=== PATIENT | female | born 1995 | race Caucasian/White ===

== ENCOUNTER 2016-10-26 20:38 | Emergency (ER) | payer OTHER ==
[~2016-10-26] VITALS: Ht 157.5 cm; Wt 111.4 kg
[2016-10-26 20:42] VITALS: Ht 157.5 cm; Wt 111.4 kg
[2016-10-26] MEDS ORDERED: ONDANSETRON INJ 2 MG/ML 2 ML VIAL IV STA (20:59)
[2016-10-26] MEDS ORDERED: KETOROLAC TROMETHAMINE 30 MG/ML VIAL IV STA (20:59)
[2016-10-26] MEDS ORDERED: SODIUM CHLORIDE 0.9% 1000ML 1,000 ML IV STA (20:59)
[2016-10-26] MEDS ORDERED: HYDROmorphone INJ 1 MG/ML SYR IV STA ×2 (20:59→23:23)
--- NOTE | 2016-10-26 21:10 | EMERGENCY ROOM VISIT NOTE ---
History Report prepared by Vincent: Karla Leroy Under the Supervision of: Dr. Connor Ernst M.D. First contact with patient: 20:53 Chief Complaint: FLANK PAIN Stated Complaint: BACK PAIN MOVING TO STOMACH, VOMITING History of Present Illness The patient is a 21 year old female who presents to the Emergency Room with complaints of worsening right sided flank pain since yesterday afternoon. She states that today her pain is radiating into her right groin and into her abdomen. The patient rates her pain as a 9/10 in severity. She has been taking ibuprofen for pain. She denies any personal history of kidney stones, but does report a family history of kidney stones. She denies chance of . Her LNMP was last week. Source of History: patient Onset: yesterday afternoon Position: other (right flank) Symptom Intensity: 9/10 Quality: other (radiating) Timing: worsening Modifying Factors (Relieving): ibuprofen Associated Symptoms: + abdominal pain, + back pain Review of Systems See HPI for pertinent positives & negatives. A total of 10 systems reviewed and were otherwise negative. Past Medical & Surgical Medical Problems: (1) Ovarian cyst Family History Diabetes mellitus FHx: cancer Kidney disease Kidney stones Social History Smoking Status: Never Smoker Smokeless Tobacco Use: No Alcohol Use: none Drug Use: none Marital Status: single Housing Status: lives with family Occupation Status: employed, student Current/Historical Medications Scheduled Fluticasone Propionate (Nasal) (Flonase Allergy Relief), 2 SPRAYS BINTA DAILY Scheduled PRN Oxycodone/Acetaminophen 5MG/325MG (Percocet 5MG/325MG), 1-2 TAB PO Q4H PRN for Pain Allergies Coded Allergies: No Known Allergies (Unverified , NONE, 08/03/12) Physical Exam Vital Signs Date Time Temp Pulse Resp B/P Pulse Ox O2 Delivery O2 Flow Rate FiO2 10/26/16 23:43 36.5 82 18 122/66 98 10/26/16 23:37 82 18 122/66 98 Room Air 10/26/16 22:56 84 18 127/66 98 Room Air 10/26/16 21:17 96 10/26/16 20:42 36.5 95 18 129/86 99 Room Air Physical Exam GENERAL: Patient is a healthy-appearing well-nourished 21 year old female. HEAD: Normocephalic atraumatic EYES: Ocular movements intact pupils equal and react to light OROPHARYNX mucous membranes are moist no exudates present no erythema or edema present NECK: Supple no nuchal rigidity CHEST: Good equal expansion LUNGS: Clear and equal to auscultation CARDIAC: Normal S1 and S2 ABDOMEN: Soft nontender no guarding BACK: No CVA tenderness EXTREMITIES: No pain upon palpation normal muscle strength in all groups no clubbing cyanosis or edema NEURO: Patient is following commands is answering questions appropriately. Alert and oriented x3 Cranial Nerves 2-12 grossly intact Medical Decision & Procedures ER Provider Diagnostic Interpretation: Radiology results as stated below per my review and radiologist interpretation: ULTRASOUND KIDNEYS AND BLADDER CLINICAL HISTORY: Right flank pain. COMPARISON STUDY: Abdominal CT dated 07/03/2015 and KUB dated 10/16/16. TECHNIQUE: Real-time, grayscale, and color flow sonography of the kidneys and bladder is performed. Images are reviewed in the transverse and longitudinal planes. FINDINGS: Kidneys: The kidneys are normal in size and echotexture. The right kidney measures 10.3 cm in length and the left kidney measures 10.4 cm in length. There is no hydronephrosis. No shadowing renal calculi are identified. There is no sonographic evidence of contour deforming renal mass lesion. No perinephric fluid is identified. Bladder: The bladder is largely decompressed and grossly normal in appearance. Ureteral jets were not. IMPRESSION: 1. The kidneys are normal in size and without hydronephrosis. 2. The bladder was decompressed and not well evaluated. Electronically signed by: Darrius Lucia M.D. 10/26/2016 10:48 PM Dictated Date/Time: 10/26/2016 10:46 PM KUB CLINICAL HISTORY: Right flank pain. FINDINGS: 2 AP supine abdominal radiographs are correlated with abdominal CT dated 07/03/2015. There is a nonobstructed abdominal bowel gas pattern. Mild colonic fecal retention is observed. No evidence of intraperitoneal free air is seen. There is no radiographic evidence of nephrolithiasis. The bony structures appear intact. IMPRESSION: Normal examination. Electronically signed by: Darrius Lucia M.D. 10/26/2016 10:24 PM Dictated Date/Time: 10/26/2016 10:23 PM Laboratory Results 10/26/16 21:00 Red Blood Count 5.30, Mean Corpuscular Volume 77.4, Mean Corpuscular Hemoglobin 25.7, Mean Corpuscular Hemoglobin Concent 33.2, Mean Platelet Volume 10.4, Neutrophils (%) (Auto) 74.5, Lymphocytes (%) (Auto) 17.5, Monocytes (%) (Auto) 5.3, Eosinophils (%) (Auto) 2.1, Basophils (%) (Auto) 0.3, Neutrophils # (Auto) 8.69, Lymphocytes # (Auto) 2.04, Monocytes # (Auto) 0.62, Eosinophils # (Auto) 0.24, Basophils # (Auto) 0.03 10/26/16 21:00 Test 10/26/16 20:50 10/26/16 21:00 Urine Color YELLOW Urine Appearance CLEAR (CLEAR) Urine pH 6.5 (4.5-7.5) Urine Specific [place] 1.025 (1.000-1.030) Urine Protein NEG (NEG) Urine Glucose (UA) NEG (NEG) Urine Ketones NEG (NEG) Urine Occult Blood NEG (NEG) Urine Nitrite NEG (NEG) Urine Bilirubin NEG (NEG) Urine Urobilinogen NEG (NEG) Urine Leukocyte Esterase NEG (NEG) White Blood Count 11.66 K/uL (4.8-10.8) Red Blood Count 5.30 M/uL (4.2-5.4) Hemoglobin 13.6 g/dL (12.0-16.0) Hematocrit 41.0 % (37-47) Mean Corpuscular Volume 77.4 fL (80-100) Mean Corpuscular Hemoglobin 25.7 pg (25-34) Mean Corpuscular Hemoglobin Concent 33.2 g/dl (32-36) Platelet Count 338 K/uL (130-400) Mean Platelet Volume 10.4 fL (7.4-10.4) Neutrophils (%) (Auto) 74.5 % Lymphocytes (%) (Auto) 17.5 % Monocytes (%) (Auto) 5.3 % Eosinophils (%) (Auto) 2.1 % Basophils (%) (Auto) 0.3 % Neutrophils # (Auto) 8.69 K/uL (1.4-6.5) Lymphocytes # (Auto) 2.04 K/uL (1.2-3.4) Monocytes # (Auto) 0.62 K/uL (0.11-0.59) Eosinophils # (Auto) 0.24 K/uL (0-0.5) Basophils # (Auto) 0.03 K/uL (0-0.2) RDW Standard Deviation 39.9 fL (36.4-46.3) RDW Coefficient of Variation 14.2 % (11.5-14.5) Immature Granulocyte % (Auto) 0.3 % Immature Granulocyte # (Auto) 0.04 K/uL (0.00-0.02) Anion Gap 8.0 mmol/L (3-11) Est Creatinine Clear Calc Drug Dose 145.6 ml/min Estimated GFR () 138.7 Estimated GFR (Non- 119.7 BUN/Creatinine Ratio 25.8 (10-20) Calcium Level 9.2 mg/dl (8.5-10.1) Total Bilirubin 0.3 mg/dl (0.2-1) Direct Bilirubin < 0.1 mg/dl (0-0.2) Aspartate Amino Transf (AST/SGOT) 13 U/L (15-37) Alanine Aminotransferase (ALT/SGPT) 23 U/L (12-78) Alkaline Phosphatase 95 U/L (45-117) Total Protein 7.4 gm/dl (6.4-8.2) Albumin 3.7 gm/dl (3.4-5.0) Lipase 98 U/L (73-393) Labs reviewed by ED physician. Medications Administered Medications (Trade) Dose Ordered Sig/Génesis Route Start Time Stop Time Status Last Admin Dose Admin Sodium Chloride (Nss 1000ml) 1,000 ml @ 999 mls/hr Q1H1M STAT IV 10/26/16 20:59 10/26/16 21:59 DC 10/26/16 20:59 999 MLS/HR Ketorolac Tromethamine (Toradol Inj) 30 mg NOW STAT IV 10/26/16 20:59 10/26/16 21:01 DC 10/26/16 21:08 30 MG Hydromorphone HCl (Dilaudid Inj) 1 mg NOW STAT IV 10/26/16 20:59 10/26/16 21:01 DC 10/26/16 21:08 1 MG Ondansetron HCl (Zofran Inj) 4 mg NOW STAT IV 10/26/16 20:59 10/26/16 21:02 DC 10/26/16 21:08 4 MG Hydromorphone HCl (Dilaudid Inj) 1 mg NOW STAT IV 10/26/16 23:23 10/26/16 23:25 DC 10/26/16 23:34 1 MG Metoclopramide HCl (Reglan Inj) 10 mg NOW STAT IV 10/26/16 23:23 10/26/16 23:25 DC 10/26/16 23:33 10 MG Magnesium Citrate (Citrate Of Magnesia Soln) 296 ml NOW STAT PO 10/26/16 23:25 10/26/16 23:26 DC 10/26/16 23:33 296 ML ED Course 2055: Past medical records reviewed. The patient was evaluated in room C12B. A complete history and physical examination was performed. 2058: Zofran 4 mg IV, Dilaudid 1 mg IV, Toradol 30 mg IV, NSS 1000 ml @ 999 mls/ hr IV 2322: Reglan 10 mg IV, Dilaudid 1 mg IV 5: Magnesium Citrate 296 ml PO 2331: I reassessed the patient at this time. She is feeling better and resting comfortably. I discussed the results and treatment plan with the patient. I answered all pertaining questions that she had. She expressed understanding and verbalized agreement. The patient will be discharged home. Medical Decision Differential diagnosis: Etiologies such as renal colic, appendicitis, diverticulitis, mesenteric ischemia, aortic pathology, infections, inflammatory bowel disease, PUD, biliary pathology, UTI, as well as others were entertained. This is a 21-year-old female who presents emergency department complaining of flank pain. The patient has a family history of kidney stone. For this reason she was sent for a renal ultrasound as well as a KUB. Serial abdominal examinations were performed of the patient's emergency department and at no time did the patient exhibit abdominal tenderness. I felt based on this finding as well as the patient's laboratory work and using shared medical decision-making that the patient would have very low yield with a CAT scan. Patient was in agreement with the treatment plan she received normal saline bolus,Dilaudid. Repeat examination revealed improvement patient's symptoms. The patient does appear to be constipated therefore we will try magnesium citrate cleanout. Patient was in agreement with this treatment plan. Impression Primary Impression: Flank pain Additional Impression: Constipation Scribe Attestation The scribe's documentation has been prepared under my direction and personally reviewed by me in its entirety. I confirm that the note above accurately reflects all work, treatment, procedures, and medical decision making performed by me. Departure Information Dispostion Home / Self-Care Prescriptions Oxycodone/Acetaminophen 5MG/325MG (PERCOCET 5MG/325MG) Tab 1-2 TAB PO Q4H Y for Pain, #14 TAB Prov: Connor Ernst MD 10/26/16 Referrals Elisa Dean M.D. Forms HOME CARE DOCUMENTATION FORM, IMPORTANT VISIT INFORMATION, School Instructions, Work Instructions Patient Instructions Constipation, ED Flank Pain Uncertain Cause, My [facility] Additional Instructions Take 1/2 bottle of Mag Citrate Repeat second half in six hours You have been examined and treated today on an emergency basis only. This is not a substitute for, or an effort to provide, complete comprehensive medical care. It is impossible to recognize and treat all injuries or illnesses in a single emergency department visit. It is therefore important that you follow up closely with your PCP. Call as soon as possible for an appointment. Thank you for your time and consideration. I look forward to speaking with you again soon. Please don't hesitate to call us if you have any questions. Problem Qualifiers Additional Impression: Constipation Constipation type: unspecified constipation type Qualified Codes: K59.00 - Constipation, unspecified
[2016-10-26] MEDS ORDERED: FLUT0.15 NAE (21:19)
[2016-10-26 22:03] LABS: BASO % 0.3 %; BASO ABS # 0.03 K/uL (0-0.2); COMPLETE YES; EOS % 2.1 %; IG% 0.3 %; LYMPH % 17.5 %; LYMPH ABS # 2.04 K/uL (1.2-3.4); MEAN CELL VOLUME 77.4 fL (80-100); MEAN CORPUSCULAR HEMOGLOBIN 25.7 pg (25-34); MEAN CORPUSCULAR HGB CONC 33.2 g/dl (32-36); MEAN PLATELET VOLUME 10.4 fL (7.4-10.4); MONO % 5.3 %; NEUT % 74.5 %; PLATELET COUNT 338 K/uL (130-400); WHITE BLOOD COUNT 11.66 K/uL (4.8-10.8)
[2016-10-26 22:13] LABS: BLOOD UREA NITROGEN 19 mg/dl (7-18); BUN/CREATININE RATIO 25.8 (10-20); CALCIUM 9.2 mg/dl (8.5-10.1); CARBON DIOXIDE 27 mmol/L (21-32); CHLORIDE 108 mmol/L (98-107); CREATININE 0.72 mg/dl (0.60-1.20); GLUCOSE 78 mg/dl (70-99); POTASSIUM 3.8 mmol/L (3.5-5.1); SODIUM 143 mmol/L (136-145)
[2016-10-26 22:17] LABS: ALKALINE PHOSPHATASE 95 U/L (45-117); ALT/SGPT 23 U/L (12-78); AST/SGOT 13 U/L (15-37)
--- NOTE | 2016-10-26 22:25 | DIAGNOSTIC IMAGING REPORT ---
KUB CLINICAL HISTORY: Right flank pain. FINDINGS: 2 AP supine abdominal radiographs are correlated with abdominal CT dated 07/03/2015. There is a nonobstructed abdominal bowel gas pattern. Mild colonic fecal retention is observed. No evidence of intraperitoneal free air is seen. There is no radiographic evidence of nephrolithiasis. The bony structures appear intact. IMPRESSION: Normal examination. Electronically signed by: Darrius Lucia M.D. 10/26/2016 10:24 PM Dictated Date/Time: 10/26/2016 10:23 PM
--- NOTE | 2016-10-26 22:49 | DIAGNOSTIC IMAGING REPORT ---
ULTRASOUND KIDNEYS AND BLADDER CLINICAL HISTORY: Right flank pain. COMPARISON STUDY: Abdominal CT dated 07/03/2015 and KUB dated 10/16/16. TECHNIQUE: Real-time, grayscale, and color flow sonography of the kidneys and bladder is performed. Images are reviewed in the transverse and longitudinal planes. FINDINGS: Kidneys: The kidneys are normal in size and echotexture. The right kidney measures 10.3 cm in length and the left kidney measures 10.4 cm in length. There is no hydronephrosis. No shadowing renal calculi are identified. There is no sonographic evidence of contour deforming renal mass lesion. No perinephric fluid is identified. Bladder: The bladder is largely decompressed and grossly normal in appearance. Ureteral jets were not. IMPRESSION: 1. The kidneys are normal in size and without hydronephrosis. 2. The bladder was decompressed and not well evaluated. Electronically signed by: Darrius Lucia M.D. 10/26/2016 10:48 PM Dictated Date/Time: 10/26/2016 10:46 PM
[2016-10-26 22:59] LABS: MANUAL MICROSCOPIC REQUIRED? NO; URINE APPEARANCE CLEAR (CLEAR); URINE BILIRUBIN NEG (NEG); URINE COLOR YELLOW; URINE NITRITE NEG (NEG); URINE PH 6.5 (4.5-7.5); URINE SPECIFIC GRAVITY 1.025 (1.000-1.030); UROBILINOGEN NEG (NEG)
[2016-10-26 23:01] LABS: REVIEW REQ? NO
[2016-10-26] MEDS ORDERED: METOCLOPRAMIDE HCL INJ 5 MG/ML 2 ML VIAL IV STA (23:23)
[2016-10-26] MEDS ORDERED: MAGNESIUM CITRATE 296 ML/BTL PO STA (23:25)
[2016-10-26] MEDS ORDERED: OXYC-57 PO (23:27)
[2016-10-26 23:43] VITALS: BP 122/66; PULSE 82; TEMP 36.5; O2SAT 98
== END 2016-10-26 23:43 | disposition home or self-care (01) ==
LOC: C.EDB 20:39 → C.EDC 23:43
DX: K59.00 Constipation, unspecified (principal)

== ENCOUNTER 2016-12-23 20:15 | Emergency (ER) | payer OTHER ==
[~2016-12-23] VITALS: Ht 157.5 cm; Wt 113.8 kg
[~2016-12-23 20:15] MED LIST: FLUT0.15 NAE; OXYC-57 PO
[2016-12-23 20:22] VITALS: TEMP 36.8; Ht 157.5 cm; Wt 113.8 kg
[2016-12-23] MEDS ORDERED: CLR10 PO (20:49)
[2016-12-23] MEDS ORDERED: HYDCR25 TOP (20:50)
--- NOTE | 2016-12-23 20:53 | DIAGNOSTIC IMAGING REPORT ---
RIGHT KNEE 3 VIEWS CLINICAL HISTORY: R knee pain Right pain COMPARISON: None. DISCUSSION: The bones and joint spaces appear intact. There is no evidence of fracture, dislocation or bony disease. There is no evidence for soft tissue swelling. IMPRESSION: Negative study. Electronically signed by: Fabian River M.D. 12/23/2016 8:51 PM Dictated Date/Time: 12/23/2016 8:51 PM
[2016-12-23] MEDS ORDERED: TRAMADOL HCL 50 MG TAB PO STA (20:55)
[2016-12-23] MEDS ORDERED: TRAMADOL HCL 50 MG HOME PACK PO ONE (21:00)
[2016-12-23] MEDS ORDERED: TRAM-10 PO (21:20)
[2016-12-23 21:56] VITALS: BP 136/77; PULSE 78; O2SAT 98
--- NOTE | 2016-12-25 00:03 | EMERGENCY ROOM VISIT NOTE ---
ED Visit Note First contact with patient: 20:26 Chief Complaint: Right knee pain. History of Present Illness: Ms. Wolff is a 21-year-old white female who is brought into the ED via wheelchair accompanied by her father complaining of right knee pain. Patient denies any previous significant injuries or surgeries to the right knee but does report she had multiple episodes of childhood knee pain. Most of these were evaluated by her central stores attendant and no cause of her knee pain was identified. 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 Currently she describes the pain as a throbbing and sharp sensation. She rates her discomfort 8/10. The pain is nonradiating. The pain worsens with greater then 10 of flexion, hyperextension, palpation throughout the medial, anterior and lateral aspects of the knee. She has not identified any alleviating factors related to the pain. She has not taken any medications for pain prior to arrival at the hospital. She denies any associated symptoms including hip pain, thigh pain, lower leg pain, ankle pain, leg weakness/numbness/tingling, recent direct falls/trauma. Review of Systems: As noted above in history of present illness. 5 body systems were reviewed and found to be negative as noted above. Past Medical History: Bronchitis, status post wisdom teeth extraction. Current Medications: Flonase, Claritin, topical hydrocortisone. Allergies to Medications: Patient denies. Social History: Patient is currently employed; she feels safe in her home environment; she denies tobacco and alcohol use. Physical Examination: Vital Signs: Date Time Temp Pulse Resp B/P Pulse Ox O2 Delivery O2 Flow Rate FiO2 12/23/16 21:56 78 18 136/77 98 Room Air 12/23/16 20:22 36.8 109 18 157/83 97 Room Air GENERAL: 21-year-old female in moderate distress due to pain, nontoxic-appearing , afebrile and hemodynamically stable. NEUROLOGICAL: Awake, alert and oriented to person, place and time. Answering questions appropriately and following commands. Good hand eye coordination. SKIN: Warm, dry and pink. No soft tissue trauma noted. RIGHT LOWER EXTREMITY: No gross bony deformities. No shortening or malrotation. No tenderness in the hip, thigh, distal portion of the lower leg, ankle or foot. Moderate to severe tenderness throughout the lateral and medial joint lines without bony deformity, bony crepitus, swelling or ecchymosis. Moderate to severe tenderness over the patella, the tibial tuberosity and the patellar tendon without bony deformity, bony crepitus. She was only able to flex her knee less than 10 because of pain. She was able to slightly hyperextend her leg but that also increased her pain. Because of her discomfort I was not able to evaluate the menisci, collateral and cruciate ligaments. She did have full range of motion and muscle strength in plantar flexion, dorsiflexion and inversion eversion of the ankle and flexion and extension of all toes. The skin was warm and pink in the foot and the capillary refill is brisk. She is able to distinguish light sensations through all dermatomes. ED Course: Patient is assessed as noted above. Patient was given 50 mg of tramadol and ice for pain. Right Knee X-Rays: Were read by myself and the radiologist showing no acute fractures, dislocations or joint effusions. Patient was placed in a knee immobilizer and on nonweightbearing crutches. Patient was educated about tonight's findings and instructed on her treatment plan; she verbalizes understanding and agreement with this plan. Clinical Impression: Right knee pain. Disposition: Patient discharged home in stable condition accompanied by her father; prior to departure she was reassessed and subjectively reported she was feeling better and rated her discomfort 2/10. Plan: Comfort measures were discussed with the patient including a sliding pain medication scale of ibuprofen, acetaminophen and Ultram, ice and elevation, knee immobilizer and nonweightbearing crutches. Patient was encouraged to follow-up with orthopedics if no better in 7-10 days. Patient was encouraged return the ED for worsening/uncontrolled pain, uncontrolled swelling, leg weakness/numbness/tingling or any new/concerning symptoms.
== END 2016-12-23 21:58 | disposition home or self-care (01) ==
LOC: C.EDB 20:15 → C.EDD 21:58
DX: M25.561 Pain in right knee (principal)

== ENCOUNTER → 2016-12-30 | Outpatient (CLI) | payer OTHER ==
[~2016-12-30] MED LIST changes: +CLR10 PO; +HYDCR25 TOP; -OXYC-57 PO; +TRAM-10 PO
--- NOTE | 2016-12-30 16:14 | DIAGNOSTIC IMAGING REPORT ---
MRI OF THE RIGHT KNEE NO CONTRAST CLINICAL HISTORY: Right knee pain status post trauma. Patellar tendon rupture. COMPARISON STUDY: Conventional radiographic study dated 12/23/2016 FINDINGS: Imaging was performed in the coronal, sagittal, and axial planes. The patellar retinacular structures appear intact There are no areas of marrow edema to indicate occult fracture or bone bruise. The quadriceps and patellar tendons appear intact. The anterior and posterior cruciate ligaments appear intact. No meniscal tears are visualized. The medial and lateral collateral ligaments appear intact. IMPRESSION: No evidence of internal arrangement. Electronically signed by: Felix Callaway M.D. 12/30/2016 4:12 PM Dictated Date/Time: 12/30/2016 4:09 PM
== END | disposition home or self-care (01) ==
LOC: C.MRIBC 14:28
PROVIDERS: ATTEND Physician Assistant
DX: S86.811A Strain of other muscle(s) and tendon(s) at lower leg level, right leg, initial encounter (principal); X58.XXXA Exposure to other specified factors, initial encounter

== ENCOUNTER 2020-09-01 09:31 | Inpatient (IN) ==
--- NOTE | 2020-08-16 17:29 | PAT Medication Instructions ---
Medication Instructions Date of Service August 16, 2020 Home Medications fluticasone propionate [Flonase Allergy Relief] 2 spray INTRANASAL DAILY PRN loratadine 10 mg PO DAILY PRN amitriptyline 50 mg PO HS norgestimate-ethinyl estradiol [Sprintec (28)] 1 tab PO PM ASK your surgeon for instructions norgestimate-ethinyl estradiol [Sprintec (28)] 1 tab PO PM DO NOT take the morning of surgery loratadine 10 mg PO DAILY PRN Take morning of surgery With a small sip of water, OTHERWISE NOTHING TO EAT OR DRINK AFTER MIDNIGHT: fluticasone propionate [Flonase Allergy Relief] 2 spray INTRANASAL DAILY PRN (if needed) Take evening before surgery amitriptyline 50 mg PO HS Other Notes If you have any questions please call us at [phone] or [phone] or [phone] or [phone]
--- NOTE | 2020-08-17 14:07 | Anesthesiology Consultation ---
Date of Service August 17, 2020 Assessment & Plan (1) Encounter for pre-operative examination: Chart Review Chart Review: Acceptable Risk for Surgery (pending preop Covid testing and anesthesia evaluation. ) and Patient seen in Pre Admission Testing Surgeon's office informed of leukocytosis- will leave to surgeon's discretion if further evaluation needed and/or if repeat CBC needed. At [facility] appt on 08/18/20, pt was afebrile and had no complaints of illness. PE unremarkable. Will leave to anesthesia discretion if repeat CBC needed DOS. - Check test AM DOS Per [facility] appt on 08/17/20, patient denies any recent travel or any large group gatherings. No known Covid positive contacts or Covid related symptoms. Pt scheduled for preop Covid testing 08/25/20- will await results. Educated on importance of self quarantining, social distancing and wearing mask in public both for the patient and household contacts. Teaching & Discussion Pre-Anesthesia Teaching/Discussion Notes: Instructed NPO after midnight before surgery,except medications with 15 cc of water. Medication instructions provided according to the [facility] guidelines. History Surgery Operation Date: 09/01/20 11:20 Proposed Procedures p Exploratory Laparotomy and Abdominal Myomectomy - Rachel Vasquez Height/Weight Height: 5 ft 2 in Weight: 124.9 kg Allergies Allergy/AdvReac Type Severity Reaction Status Date / Time nickel Allergy Intermediate Rash Verified 08/10/20 11:15 Medications Home Medications Medication Instructions Recorded Confirmed Last Taken fluticasone propionate [Flonase 2 spray INTRANASAL DAILY PRN 05/31/19 08/10/20 Unknown Allergy Relief] loratadine 10 mg PO DAILY PRN 05/31/19 08/10/20 Unknown amitriptyline 50 mg PO HS 08/07/20 08/10/20 08/09/20 norgestimate-ethinyl estradiol 1 tab PO PM 08/07/20 08/10/20 08/09/20 [Sprintec (28)] metformin 500 mg BID 08/17/20 08/17/20 Unknown Past Medical History Medical History ADHD Will be starting Adderall in near future Anemia secondary to bleeding from fibroids Anxiety Depression PCOS (polycystic ovarian syndrome) Recently started on Metformin Scoliosis Mild Seasonal allergies Stress headaches Exercise / Class Metabolic Activity II 4-5 Yardwork/Stairs/Walk up hill (one flight of stairs - no chest pain or SOB) Past Family History Family History Mother History of anesthesia reaction difficulty breathing after anesthesia due to asthma> resolved during recovery. happened x1 Diabetes Past Surgical History Surgical History History of adenoidectomy History of myringotomy [place] teeth extracted Past Anesthesia History No Hx of Anesthesia Complications and No Family Hx of Anesthesia Complications (with exception to mother - mother has hx of asthma- did get SOB post op ) History of PONV No Hx of PONV and No Hx of Motion Sickness Social History Smoking Status: Never smoker Do You Dip or Chew Tobacco: No Smoking End Date: 2013 Hx Alcohol Use: No Hx Substance Use: No substance use type: does not use Review of Systems Patient denies chest pain, shortness of breath, dyspnea on exertion, reflux, cough, wheezing, palpitations. No hx of seizures, stroke, PA, apnea/snoring. No hx of blood clots or blood transfusions Physical Exam Vital Signs VITALS BP 122/89 P 82 TEMP 98.0 SP02 98% RESP 16 Constitutional no acute distress ENMT Mouth: no TMJ clicking Thyromental Distance: > or= 3.5 Finger Breadths Mallampati Class: II (smaller airway ) Denies loose or missing teeth Neck neck extension not limited Respiratory normal respiratory effort; no respiratory distress Auscultation: lungs clear to auscultation bilaterally; no wheezes Cardiovascular Rate/Rhythm: regular rate and regular rhythm Heart Sounds: no murmur Vessels: no carotid bruit Musculoskeletal Spine: no pain with cervical ROM Extremities: extremities normal to inspection Psychiatric Orientation: alert Testing Laboratory Results 08/17/20 14:20 08/17/20 14:20 Blood Type A Positive 08/17/20 14:20 Antibody Screen NEGATIVE 08/17/20 14:20 *Hx of mild chronic leukocytosis - usually in 11-12,000 range Electrocardiogram Date: 08/17/20 Findings: + NSR @ (78) Normal EKG.
[2020-08-17 15:04] LABS: Basophils # (auto) 0.02 K/uL (0-0.2); Basophils % (auto) 0.1 %; Eosinophils # (auto) 0.03 K/uL (0-0.5); Eosinophils % (auto) 0.2 %; Hematocrit (blood only) 38.2 % (37-47); Hemoglobin 11.6 g/dL (12.0-16.0); Immature Granulocytes # (auto) 0.04 K/uL (0.00-0.02); Immature Granulocytes % (auto) 0.3 %; Lymphocytes # (auto) 3.14 K/uL (1.2-3.4); Lymphocytes % (auto) 20.5 %; Mean Corpuscular Hemoglobin 21.5 pg (25-34); Mean Corpuscular Hgb Conc 30.4 g/dL (32-36); Mean Corpuscular Volume 70.9 fL (80-100); Mean Platelet Volume 10.2 fL (7.4-10.4); Monocytes # (auto) 0.99 K/uL (0.11-0.59); Monocytes % (auto) 6.5 %; Neutrophils # (auto) 11.12 K/uL (1.4-6.5); Neutrophils % (auto) 72.4 %; Platelet Count 457 K/uL (130-400); RDW Coefficient of Variation 15.4 % (11.5-14.5); RDW Standard Deviation 40.5 fL (36.4-46.3); Red Blood Count 5.39 M/uL (4.2-5.4); White Blood Count 15.34 K/uL (4.8-10.8)
[2020-08-17 15:30] LABS: BUN Creatinine Ratio 25.2 (10-20); Calcium 8.8 mg/dl (8.5-10.1); Creatinine Clr Calc Pharmacy 148.8 ml/min; Est GFR (African American) 132.7; Est GFR (Non-African American) 114.5; Potassium 3.8 mmol/L (3.5-5.1)
[2020-08-17 15:34] LABS: Hypochromasia Present
--- NOTE | 2020-08-17 16:00 | Electrocardiogram Report ---
Test Reason : Blood Pressure : / mmHG Vent. Rate : 078 BPM Atrial Rate : 078 BPM P-R Int : 128 ms QRS Dur : 082 ms QT Int : 374 ms P-R-T Axes : -25 062 016 degrees QTc Int : 426 ms Normal sinus rhythm Normal ECG When compared with ECG of 09-AUG-2016 20:09, No significant change was found Confirmed by Dominic Deleon ([id number]) on 08/17/2020 4:00:29 PM Referred By: Rachel Vasquez Confirmed By:Sean Deleon
[~2020-09-01 09:31] MED LIST changes: -CLR10 PO; -FLUT0.15 NAE; -HYDCR25 TOP; +LACTATED RINGER'S 1,000 ML IV SCH; +LR 15ML/HR IV SCH; -TRAM-10 PO
[2020-09-01] MEDS ORDERED: ONDANSETRON INJ 2 MG/ML 2 ML VIAL ONE ×2 (09:45→12:53)
[2020-09-01] MEDS ORDERED: NEOSTIGMINE METHYLSULFATE 5 MG/5 ML SYR ONE (09:45)
[2020-09-01] MEDS ORDERED: PROPOFOL IV EMULSION 10 MG/ML 20 ML VIAL IV ONE (09:45)
[2020-09-01] MEDS ORDERED: MIDAZOLAM HCL 1 MG/ML 2ML VIAL ONE (09:45)
[2020-09-01] MEDS ORDERED: DEXAMETHASONE SOD INJ 4 MG/ML VIAL ONE (09:45)
[2020-09-01] MEDS ORDERED: fentaNYL citrate 100 MCG/2 ML VIAL ONE (09:45)
[2020-09-01] MEDS ORDERED: GLYCOPYRROLATE 0.2 MG/ML VIAL ONE (09:45)
[2020-09-01] MEDS ORDERED: LIDOCAINE HCL 2% 2 ML VIAL/AMP(20MG/ML) INFIL ONE (09:45)
[2020-09-01 10:29] LABS: Pregnancy Test, Serum Negative (Negative)
--- NOTE | 2020-09-01 10:48 | History & Physical Bridge Note ---
Date of Service September 01, 2020 History & Physical Bridge Note I have examined the patient, reviewed the History & Physical and in the interval since the performance of the History & Physical I have noted the following changes of clinical significance: no changes noted
[2020-09-01] MEDS ORDERED: PROMETHAZINE HCL 12.5 MG in SODIUM CHLORIDE 0.9% 50 ML IV PRN (10:50)
[2020-09-01] MEDS ORDERED: ATROPINE SULFATE 0.1 MG/ML 10ML SYR IV PRN (10:50)
[2020-09-01] MEDS ORDERED: METOCLOPRAMIDE HCL INJ 5 MG/ML 2 ML VIAL IV PRN (10:50)
[2020-09-01] MEDS ORDERED: ONDANSETRON INJ 2 MG/ML 2 ML VIAL IV PRN ×2 (10:50→15:48)
[2020-09-01] MEDS ORDERED: ePHEDrine sulfate 50 MG/ML AMP IV PRN (10:50)
[2020-09-01] MEDS ORDERED: HYDROmorphone INJ 2 MG/ML SYR/VIAL IV PRN (10:50)
[2020-09-01] MEDS ORDERED: SODIUM CHLORIDE 0.9% PF 50 ML VIAL ONE ×2 (11:08→12:39)
[2020-09-01] MEDS ORDERED: VASOPRESSIN 20 UNIT/ML VIAL ONE (11:08)
[2020-09-01] MEDS ORDERED: LARYING-O-JET KIT (LTA) ONE (11:43)
[2020-09-01] MEDS ORDERED: ROCURONIUM BROMIDE 10 MG/ML 5 ML VIAL IV ONE (11:44)
[2020-09-01] MEDS ORDERED: HYDROmorphone INJ 2 MG/ML SYR/VIAL ONE (11:44)
[2020-09-01] MEDS ORDERED: BUPIVACAINE LIPOSOME 1.3% 266 MG/20 ML VIAL ONE (12:01)
[2020-09-01] MEDS ORDERED: TISSEEL FIBRIN SEALANT 10ML TOP ONE (12:30)
--- NOTE | 2020-09-01 13:10 | Post Operative Brief Note ---
Immediate Post Op Note v1 Date of Surgery September 01, 2020 Pre & Post Diagnosis Operation Date: 09/01/20 11:30 Pre-Op Diagnosis: Uterine Fibroids, Heavy Menstrual Bleeding I identified the patient and participated in the time-out.: Yes Procedure Operation Date: 09/01/20 11:30 Actual Procedures p Exploratory Laparotomy and Abdominal Myomectomy(Not Applicable) - Rachel Vasquez Surgeon Rachel Vasquez Body Coverer Emeka Bradford MD, Loan García PA-C Estimated Blood Loss 10 Findings Consistent with Post-Op Diagnosis Drains Brady Catheter
--- NOTE | 2020-09-01 13:13 | Operative Report ---
Post Operative Report Pre & Post Diagnosis Operation Date: 09/01/20 11:30 Pre-Op Diagnosis: Uterine Fibroids, Heavy Menstrual Bleeding I identified the patient and participated in the time-out.: Yes Procedure Operation Date: 09/01/20 11:30 Actual Procedures p Exploratory Laparotomy and Abdominal Myomectomy(Not Applicable) - Rachel Vasquez Surgeon Rachel Vasquez Tractor Driver Teamster Emeka Bradford MD, Loan García PA-C Estimated Blood Loss 10 Findings See Below 1. Normal size anteverted uterus 2. Approximate 4 cm left posterior fibroid 3. 1 cm left anterior uterine segment fibroid 4. Normal appearing bilateral fallopian tubes and ovaries Fluids See Anesthesia Report Specimens Uterine fibroids Drains Reece catheter: 65 ml Anesthesia Type General Complications none Indications 25 yo P0 with uterine fibroids desiring surgery via abdominal myomectomy. Description of Procedure The patient was taken to the operating room where general anesthesia was found to be adequate. The patient was prepped and draped in the usual sterile fashion in the dorsal supine position. A reece catheter was inserted without difficulty. A Pfannenstiel skin incision was made with the scalpel and carried through to the underlying layer of fascia using the Bovie. The fascia was incised in the midline and extended laterally using Berg scissors. Adrienne clamps were used to elevate the superior aspect of the fascial incision, which was elevated, and the underlying rectus muscles were dissected off bluntly and using Berg scissors. Attention was then turned to the inferior aspect of the fascial incision, which in similar fashion was grasped with Adrienne clamps, elevated, and the underlying rectus muscles were dissected off bluntly and using Berg scissors. The rectus muscles were dissected in the midline. The peritoneum was bluntly dissected, entered, and extended superiorly and inferiorly with good visualization of the bladder. The bowel as packed and O'Fritz O'Anglin retractor was inserted for better visualization. Two fibroids were visible/palpable. The remaining noted on MRI were not palpable therefore decision was made to remove the two fibroids visualized. A dilute solution was injected to each fibroid. The posterior fibroid was scored with a bovie down to the capsule. Lehay clamps were used to grasp the fibroid and with traction, the fibroid was removed from its uterine mucosa. The incision was then closed with V-loc barbed stitch in three layers. Hemostasis was noted. Attention was then turned to left lower uterine fibroid (superficial). It was then scored with bovie down to the capsule of the fibroid. The fibroid was remove with Lehay clamps. The incision was closed with 2-0 Vicryl in 2 layers. Hemostasis was achieved. The pelvis was then copiously irrigated and suctioned and hemostasis was again noted. Tisseal was then placed along the incision site. Hemostasis again noted. The abdominal sponges were removed. The O'Fritz O'Anglin retractor was also removed without difficulty. The fascia was closed with 0 PDS. Exparel was then injected into the subcutaneous and fascial layer. The subcutaneous layer was closed with 2-0 Vicryl in a running fashion and the skin was closed with 4-0 monocryl. A PIA dressing was then placed on the incision site. Sponge, lap, and instrument counts were correct x2. The patient was stable at the completion of the procedure and was subsequently transferred to the recovery room in stable condition. My Tractor Driver Teamster was necessary throughout the procedure for uterine manipulation, retraction, handling of the instruments to ensure adequate visualization, gentle tissue manipulation, and hemostasis. I attest to the content of the Intraoperative Record and any orders documented therein. Any exceptions are noted below.
[2020-09-01] MEDS: fentaNYL citrate 100 MCG/2 ML VIAL IV PRN ×4 (13:40→13:55)
--- NOTE | 2020-09-01 14:01 | Anesthesiology Progress Note ---
Date of Service September 01, 2020 Anesthesia Post Procedure Vital Signs Vital Signs: Temp Pulse Pulse Resp BP Pulse Ox 09/01/20 13:50 97 H 16 162/87 H 94 09/01/20 13:40 98 H 16 147/92 H 96 09/01/20 13:30 114 H 18 139/67 96 09/01/20 13:20 36.3 C L 117 H 16 144/84 H 96 09/01/20 10:05 37.2 C 96 H 18 163/105 H 98 Pain Intensity Lower Abdomen: Pain Intensity: 8 Transfer of Care Handoff Completed per policy Notes Mental Status: alert / awake / arousable and participated in evaluation Patient Amnestic to Procedure: Yes Nausea / Vomiting: adequately controlled Pain: adequately controlled Airway Patency, RR, SpO2: stable & adequate BP & HR: stable & adequate Hydration State: stable & adequate Anesthetic Complications: no major complications apparent
[2020-09-01] MEDS ORDERED: LACTATED RINGER'S 1,000 ML IV SCH (15:48)
[2020-09-01] MEDS ORDERED: oxyCODONE HCL IR 5 MG TAB (IMMEDIATE RELEASE) PO PRN (15:48)
[2020-09-01] MEDS: ACETAMINOPHEN 500 MG TAB PO SCH (16:04)
[2020-09-01] MEDS: KETOROLAC 30 MG/ML VIAL IV SCH (17:57)
[2020-09-01] MEDS: SIMETHICONE 80 MG CHEW PO SCH (17:57)
[2020-09-01] MEDS ORDERED: AMITRIPTYLINE HCL 50 MG TAB PO SCH (21:00)
[2020-09-01] MEDS: metFORMIN HCL 500 MG TAB PO SCH (21:03)
[2020-09-01] MEDS: DOCUSATE SODIUM 100 MG CAP PO SCH (21:04)
[2020-09-02] MEDS: SIMETHICONE 80 MG CHEW PO SCH ×3 (00:36→11:18)
[2020-09-02] MEDS: ACETAMINOPHEN 500 MG TAB PO SCH ×2 (00:36→09:09)
[2020-09-02] MEDS: KETOROLAC 30 MG/ML VIAL IV SCH ×2 (00:37→06:00)
[2020-09-02] MEDS: DOCUSATE SODIUM 100 MG CAP PO SCH (09:09)
[2020-09-02] MEDS: metFORMIN HCL 500 MG TAB PO SCH (09:09)
[2020-09-02] MEDS ORDERED: IBUPROFEN 600 MG TAB PO PRN (09:56)
--- NOTE | 2020-09-02 09:56 | Obstetrical Progress Note ---
Date of Service September 02, 2020 Assessment & Plan Admission and Anticipated Discharge Date Admission Date: September 01, 2020 Subjective Patient is seen and examined. She feels painful. More after ambulation. Had been on IV Toradol. Ambulating without dizziness Voiding without difficulty Tolerating regular diet with out N&V but no apetite Flatus none Bleeding is minimal No fever/ chills/ CP/ SOB/ N&V/ Leg pain Vital Signs Temp Pulse Pulse Resp BP BP Pulse Ox 09/02/20 09:04 37.3 C 121 H 110 H 18 112/76 101/72 95 09/02/20 08:00 37.3 C 121 H 18 101/72 09/02/20 04:40 36.6 C 110 H 17 112/76 95 09/02/20 00:30 36.7 C 109 H 17 110/75 95 09/01/20 19:30 36.6 C 119 H 16 124/86 96 09/01/20 18:00 36.6 C 116 H 16 139/85 92 09/01/20 17:00 36.6 C 125 H 16 144/86 H 96 09/01/20 16:00 36.4 C L 119 H 16 149/92 H 97 09/01/20 15:36 36.6 C 120 H 16 142/90 H 95 09/01/20 15:10 36.4 C L 118 H 15 122/85 98 09/01/20 15:00 36.4 C L 108 H 15 149/94 H 97 09/01/20 14:50 36.4 C L 117 H 14 141/95 H 97 09/01/20 14:40 36.4 C L 108 H 17 146/96 H 98 09/01/20 14:30 36.4 C L 112 H 17 154/90 H 98 09/01/20 14:20 36.4 C L 107 H 19 160/93 H 98 09/01/20 14:10 36.4 C L 105 H 24 147/91 H 98 09/01/20 14:00 36.4 C L 97 H 16 162/87 H 94 09/01/20 13:50 97 H 16 162/87 H 94 09/01/20 13:40 98 H 16 147/92 H 96 09/01/20 13:30 114 H 18 139/67 96 09/01/20 13:20 36.3 C L 117 H 16 144/84 H 96 09/01/20 10:05 37.2 C 96 H 18 163/105 H 98 Intake and Output 09/01/20 09/02/20 09/02/20 22:59 06:59 14:59 Intake Total 1100 / 2500 Output Total 425 / 500 Balance 675 / 2000 Intake: Oral 1100 / 1100 Output: Urine 100 / 100 Urine Amount (Catheter) 300 / 365 Brady/Indwelling 300 / 365 Gastric Drainage Orogastric Other: # Unmeasured Voids 1 Weight 124.426 kg Patient Weight 09/03/20 06:59 Weight 124.426 kg CBC pending PE: General: Alert, orientedx3, NAD CVS: S1S2 RRR Lungs; CTAB Abd: soft, NT, ND, BS+, PIA dressing, there is a keri of blood on the left corned about 3x3 cm Perineum intact, minimal bleeding ( on placebo week of BCP) Ext; NT, no edema AP: 25 yo s/p abdominal myomectomy, pod# 1 VSS Afebrile CBC pending Await Pain control and bowel functions Encourage ambulation, PO intake All questions were answered D/C home this afternoon Results & Data ([facility]) Vital Signs (Past 12 Hours) Vital Signs Temp Pulse Pulse Resp BP BP Pulse Ox 09/02/20 09:04 37.3 C 121 H 110 H 18 112/76 101/72 95 09/02/20 08:00 37.3 C 121 H 18 101/72 09/02/20 04:40 36.6 C 110 H 17 112/76 95 09/02/20 00:30 36.7 C 109 H 17 110/75 95
[2020-09-02 10:05] LABS: Basophils # (auto) 0.02 K/uL (0-0.2); Basophils % (auto) 0.2 %; Eosinophils # (auto) 0.02 K/uL (0-0.5); Eosinophils % (auto) 0.2 %; Hematocrit (blood only) 28.9 % (37-47); Hemoglobin 8.7 g/dL (12.0-16.0); Immature Granulocytes # (auto) 0.04 K/uL (0.00-0.02); Immature Granulocytes % (auto) 0.4 %; Lymphocytes # (auto) 1.81 K/uL (1.2-3.4); Lymphocytes % (auto) 15.9 %; Mean Corpuscular Volume 69.8 fL (80-100); Mean Platelet Volume 9.4 fL (7.4-10.4); Monocytes # (auto) 0.85 K/uL (0.11-0.59); Monocytes % (auto) 7.5 %; Neutrophils # (auto) 8.62 K/uL (1.4-6.5); Neutrophils % (auto) 75.8 %; Platelet Count 353 K/uL (130-400); RDW Coefficient of Variation 16.3 % (11.5-14.5); RDW Standard Deviation 41.3 fL (36.4-46.3); Red Blood Count 4.14 M/uL (4.2-5.4); White Blood Count 11.36 K/uL (4.8-10.8)
[2020-09-02 10:13] LABS: Mean Corpuscular Hgb Conc 30.1 g/dL (32-36)
--- NOTE | 2020-09-02 11:20 | Obstetrical Progress Note ---
Date of Service September 02, 2020 Assessment & Plan Admission and Anticipated Discharge Date Admission Date: September 01, 2020 Subjective Patient has been ambulating in hallway without problems CBC is back She has had AUB for months, on placebo week of BCP now, bleeding minimal Her HB had been 10-11 Will start iron d/c after lunch 09/02/20 Range/Units 09:52 WBC 11.36 H (4.8-10.8) K/uL RBC 4.14 L (4.2-5.4) M/uL Hgb 8.7 L (12.0-16.0) g/dL Hct 28.9 L (37-47) % MCV 69.8 L (80-100) fL MCH 21.0 L (25-34) pg MCHC 30.1 L (32-36) g/dL RDW Std Deviation 41.3 (36.4-46.3) fL RDW Coeff of Ashley 16.3 H (11.5-14.5) % Plt Count 353 (130-400) K/uL MPV 9.4 (7.4-10.4) fL Immature Gran % (Auto) 0.4 % Neut % (Auto) 75.8 % Lymph % (Auto) 15.9 % [place] % (Auto) 7.5 % Eos % (Auto) 0.2 % Baso % (Auto) 0.2 % Neut # (Auto) 8.62 H (1.4-6.5) K/uL Lymph # (Auto) 1.81 (1.2-3.4) K/uL [place] # (Auto) 0.85 H (0.11-0.59) K/uL Eos # (Auto) 0.02 (0-0.5) K/uL Baso # (Auto) 0.02 (0-0.2) K/uL Immature Gran # (Auto) 0.04 H (0.00-0.02) K/uL Results & Data ([facility]) Vital Signs (Past 12 Hours) Vital Signs Temp Pulse Pulse Resp BP BP Pulse Ox 09/02/20 09:04 37.3 C 121 H 110 H 18 112/76 101/72 95 09/02/20 08:00 37.3 C 121 H 18 101/72 09/02/20 04:40 36.6 C 110 H 17 112/76 95 09/02/20 00:30 36.7 C 109 H 17 110/75 95
[2020-09-02] MEDS ORDERED: FERROUS SULFATE 325 MG TAB PO SCH (11:30)
[2020-09-02 11:49] LABS: RBC Morphology Unremarkable
--- NOTE | 2020-09-07 08:06 | Discharge Summary ---
Date of Service September 07, 2020 Admission HPI Per Admitting Provider 25 year [id number] with LMP 08/15/2020 using OCPs for contraception presents with uterine fibroids and heavy menstrual bleeding. Longstanding h/o irregular menses, however, worse over the last year. Patient reports some form of bleeding every day ranging from light to heavy, On heavy days, Patient reports using both tampons and pads and changes every 2 hours. Patient has to wear brief underwear due to soiling of clothing. Patient also missing work due to heavy bleeding. Patient currently on OCPs with irregular bleeding. Patient has also used ortho evra and provera in the past. Endorses cramps and clots. TVUS and MRI suggestive of a multi-fibroid uterus. Patient not currently sexually active. Denies urinary or bowel symptoms. No h/o abnormal pap smears. Last pap smear: NILM 2018 Admission Exam (Per Admitting) Constitutional WD/WN, vitals as above Respiratory normal respiratory effort, lungs clear to auscultation Cardiovascular RRR, no murmur, no edema Gastrointestinal (Abdomen) normal bowel sounds, soft, nontender, no hepatosplenomegaly Discharge Data Procedures Performed Operation Date: 09/01/20 11:30 Actual Procedures p Exploratory Laparotomy and Abdominal Myomectomy(Not Applicable) - [facility] Course (1) Fibroids: Discharge Instructions POST OPERATIVE: BOWEL FUNCTION/MEDICATIONS: 1. Constipation pain and discomfort are the most common complaints 5-7 days after surgery. Points 2-6 address the things that can help. 2. Chewing gum can help stimulate the gut and help improve digestion and motility. You've also been prescribed Simethicone to take every 6 hours for the first 1-2 weeks. 4. Colace is a stool softener that helps. Taking this 2-3 times per day until bowel function returns to normal is highly recommended. This has been prescribed for you. 5. Dulcolax is a laxative that may be used if several days have passed without a bowel movement. Alternatively Miralax may be used daily instead. 6. Drink plenty of fluids as this will also reduce constipation. 7. Narcotic pain medications will be prescribed by your physician. They are safe to use and we encourage you to use them. Ibuprofen and Tylenol have been prescribed for you, please take these every 6 hours, together, around the clock, and with food or milk. This should be done for the first 1-2 weeks after your surgery. Many patients will be able to transition off of the narcotic medications by postoperative day 3. ACTIVITY RECOMMENDATIONS: 1. Get plenty of rest and listen to your body. If you are tired, take a nap. 2. Absolutely NO intercourse and nothing in the vagina until you are examined by your doctor at the 6 week visit. At that visit it will be determined when such activities can be resumed. 3. The main physical activity in the first week should be walking. By the second week you can slowly increase activity. There are no limits on walking up and down stairs. 4. Do not lift more than 5-10 lbs for 8 weeks. Remember the "one-handed rule", i.e. if you can lift something with only one hand it's likely okay. 5. Minimize control panel assembler like vacuuming and exercising for 4 weeks. "Overdoing it" can lead to incisions not healing, and pain, so again, listen to your body. 6. Driving can be resumed when you feel able. Do not drive within 24 hours of taking a narcotic medication. EXPECTATIONS: If you experience severe pain, discharge from the incision, redness or separation, uncontrolled nausea or vomiting, or inability to have a bowel movement, call the office number day or night [phone]. 2. Bladder discomfort is common after surgery from the catheter. This usually resolves in 1-2 weeks. 3. By the end of the 3rd or 4th week you should be feeling much better. It may take up to 6 weeks for your energy levels to return to normal. 4. Narcotic medications have side effects such as: dizziness, headache, nausea and/or vomiting. If you suspect your pain medication is causing problems, call our office and we may be able to prescribe an alternate medication. 5. The skin incision is covered with a dressing called a PIA dressing. You may shower with this dressing on, simply pause the device, unscrew at the cuff and let the pack outside of the shower. After 7 days, you may disengage device and remove the dressing. This is usually best done in the shower, to assist with adhesive removal. Rubbing alcohol can also help with this. If you have any questions or concerns, please call our office at the above listed number and we would be happy to assist you. CALL THE OFFICE IF YOU HAVE ANY OF THE FOLLOWIN. Temperature of 101 degrees or higher. 2. Severe abdominal or pelvic pain not relieved by pain medication. 3. Persistent nausea or vomiting. 4. Increased pain with urination or difficulty urinating. CONTACT PHONE NUMBERS: Main Office: [phone] Your post operative appointment information can be found on the after visit summary from your pre-operative visit. If you have any questions or concerns, please call our office at the number listed above. Return to work varies based on healing, this will be further discussed at your post operative visit. Typically you are able to return to work within 4 weeks after your surgery, depending on job responsibilities. Please do not return to work prior to your post operative visit, unless previously approved by your physician. Avoid all tobacco products. If you need help to stop smoking, call [place]'s FREE QUITLINE at . This is a free call.
== END 2020-09-02 14:50 | disposition home or self-care (01) | DRG 742 ==
LOC: ASU 09:31 → 4S2 14:32
DX: Z79.899 Other long term (current) drug therapy; D25.9 Leiomyoma of uterus, unspecified; E16.1 Other hypoglycemia; E28.2 Polycystic ovarian syndrome; N85.4 Malposition of uterus; N92.1 Excessive and frequent menstruation with irregular cycle; Z83.3 Family history of diabetes mellitus; Z79.84 Long term (current) use of oral hypoglycemic drugs; Z87.891 Personal history of nicotine dependence; Z91.048 Other nonmedicinal substance allergy status; F32.1 Major depressive disorder, single episode, moderate; Z68.43 Body mass index [BMI] 50.0-59.9, adult; E66.9 Obesity, unspecified; Z79.3 Long term (current) use of hormonal contraceptives; D50.0 Iron deficiency anemia secondary to blood loss (chronic)

== ENCOUNTER 2021-03-26 10:13 | Observation (INO) ==
[2021-03-26 12:03] LABS: Hemoglobin 5.4 g/dL (12.0-16.0); Mean Corpuscular Hemoglobin 13.7 pg (25-34); Mean Corpuscular Hgb Conc 24.5 g/dL (32-36); Mean Corpuscular Volume 55.7 fL (80-100); Nucleated RBC # (auto) 0.13 K/uL (0-0); Nucleated RBC % (auto) 1.8 %; Platelet Count 393 K/uL (130-400); RDW Coefficient of Variation 21.2 % (11.5-14.5); RDW Standard Deviation 41.6 fL (36.4-46.3); Red Blood Count 3.95 M/uL (4.2-5.4); White Blood Count 7.19 K/uL (4.8-10.8)
[2021-03-26 12:12] LABS: Anisocytosis Present; Basophils # (auto) 0.03 K/uL (0-0.2); Basophils % (auto) 0.4 %; Eosinophils # (auto) 0.16 K/uL (0-0.5); Eosinophils % (auto) 2.2 %; Hypochromasia Present; Immature Granulocytes # (auto) 0.07 K/uL (0.00-0.02); Lymphocytes % (auto) 22.3 %; Microcytosis Present; Monocytes # (auto) 0.45 K/uL (0.11-0.59); Monocytes % (auto) 6.3 %; Neutrophils # (auto) 4.88 K/uL (1.4-6.5); Neutrophils % (auto) 67.8 %; Polychromasia 1+; Tear Drop Cells 1+
[2021-03-26 12:13] LABS: Albumin Level 3.6 gm/dl (3.4-5.0); BUN Creatinine Ratio 18.3 (10-20); Est GFR (Non-African American) 122.5 ml/min; Potassium 3.8 mmol/L (3.5-5.1)
[2021-03-26 12:16] LABS: Bilirubin,Total 0.6 mg/dl (0.2-1); Ferritin 1.6 ng/ml (8-388); Globulin 3.6 gm/dl (2.5-4.0); Total Protein 7.2 gm/dl (6.4-8.2)
[2021-03-26 12:26] LABS: Pregnancy Test, Serum Negative (Negative)
[2021-03-26] MEDS ORDERED: SODIUM CHLORIDE 0.9% 250 ML IV PRN (14:23)
--- NOTE | 2021-03-26 15:39 | History & Physical Report ---
Date of Service March 26, 2021 Assessment & Plan (1) Severe anemia: (2) Iron deficiency: (3) Fibroids: This is a 26-year-old female with history of fibroids, iron deficiency anemia, PCOS and other medical problems listed below who presents after being directed here by hematology clinic due to symptomatic severe anemia. Hgb 5.4 in setting of fibroids and irregular period Follows with Dr. Vasquez for obstetrics gyn - h/o myomectomy in Aug 2020, currently on combination control pill Also establishing with Dr. East for IV iron infusions, last one in Apr 2020 HR initially 111, improved to 96, appears stable and comfortable Receiving 1 of 2u prbcs in ER - will recheck H&H at [address] Downing, who recommends Depo-Provera injection - patient interested but requested to discuss further. Routine obgyn consult placed Monitor on telemetry overnight (4) Chronic headaches: Continue prophylactic Amitriptyline HS, Zanaflex PRN (5) PCOS (polycystic ovarian syndrome): Continue metformin DVT Ppx: ab english Code status: FULL PCP: Dr. Dean Dispo: Observation PCU Patient seen in collaboration with Dr. Worthy. Please see addendum. History of Present Illness Chief Complaint: Symptomatic anemia Primary Care Provider: Elisa Dean MD This is a 26-year-old female with history of fibroids, iron deficiency anemia, PCOS and other medical problems listed below who presents after being directed here by hematology clinic due to abnormal lab work. Patient with history of extensive fibroids with abdominal myomectomies in [place] [address] Vasquez. Bleeding improved at that point, but. Is irregular due to PCOS despite being on combo control pill Sprintec. Still endorses 15 to 20 days of bleeding per month requiring her to change an ultra tampon every 4 hours. Endorsing vaginal bleeding over the past few days. Has had longstanding lightheadedness with positional changes due to ongoing anemia in setting of fibroids, but symptoms worsened over the past 2 weeks. Now also endorsing palpitations and shortness of breath with walking as well as an episode of blurry vision and near syncope yesterday. Has received IV iron in the past due to severe anemia, most recently in April 2020. Due to see Dr. East of hematology in a few days to discuss next dose of IV iron and did pre-appointment lab work, revealing a hemoglobin of 5.5 on 03/23/2021. Hematology nursing directed patient to come to ED for further evaluation due to symptoms related to severe anemia. Is currently receiving first unit of PRBCs in the ER. He is comfortable and hemodynamically stable with mild tachycardia. Endorses lightheadedness but is otherwise comfortable at rest. No fever, chills, visual changes, lightheadedness, chest pain, shortness of breath, nausea, vomiting, abdominal pain, dysuria, diarrhea constipation. Allergies Allergy/AdvReac Type Severity Reaction Status Date / Time nickel Allergy Intermediate Rash Verified 03/26/21 11:31 Home Medications Medication Instructions Recorded Confirmed Type fluticasone propionate [Flonase 2 spray INTRANASAL DAILY PRN 05/31/19 03/26/21 History Allergy Relief] loratadine 10 mg PO DAILY PRN 05/31/19 03/26/21 History amitriptyline 50 mg PO HS 08/07/20 03/26/21 History norgestimate-ethinyl estradiol 1 tab PO PM 08/07/20 03/26/21 History [Sprintec (28)] metformin 500 mg BID 08/17/20 03/26/21 History clonidine HCl 0.1 mg PO HS 12/02/20 03/26/21 History dextroamphetamine-amphetamine 15 mg PO QAM 12/02/20 03/26/21 History Past Med/Surg History Medical History ADHD Will be starting Adderall in near future Anemia secondary to bleeding from fibroids Anxiety Chronic headaches Depression Ovarian cyst PCOS (polycystic ovarian syndrome) Recently started on Metformin Scoliosis Mild Seasonal allergies Stress headaches Surgical History History of adenoidectomy History of myringotomy [place] teeth extracted Family History Mother History of anesthesia reaction difficulty breathing after anesthesia due to asthma> resolved during recovery. happened x1 Diabetes Social History Smoking Status: Never smoker Second Hand Exposure: No; Hx Alcohol Use: No Hx Substance Use: No Preferred Language: Macedonian Communication Ability: Effective Exercise Physiology Professor Required: No Beliefs That Will Affect Care: None Current Living Situation: Alone Other Information That Helps Us Care for You: No Feels Safe at Home: Yes Safety Concerns: Feels Safe At This Time Assistive Devices: None Review of Systems Review of Systems: At least ten systems reviewed and negative except as noted in the HPI. Physical Exam Physical Exam: General Appearance: WD/WN, vitals as above, NAD, sitting up in bed, pleasant, conversing easily Head: normocephalic, atraumatic Eyes: normal inspection, PERRL, conjunctivae normal, anicteric sclerae ENT: external ear and nose normal, oropharynx normal Neck: normal visual inspection, trachea midline, no thyromegaly Respiratory: normal respiratory effort, lungs clear to auscultation, no wheeze, rales, rhonchi. No accessory muscle use Cardiovascular: tachycardic, rhythm, no murmur, normal peripheral pulses, no BLE edema. Vessels: no JVD Chest: normal inspection of chest Abdomen/GI: normal bowel sounds, soft, nontender, no hepatosplenomegaly Extremities/Musculoskeletal: no cyanosis or clubbing, extremities motor strength 5/5 Neurologic: PERRL, EOMI, accommodation nl, no face palsy, no dysarthria, CN's II-XI intact bilaterally and moves all extremities Psychiatric: A+Ox3, euthymic affect Skin: no rashes, pale, warm/dry Results & Data Results & Data ([facility]) Vital Signs (Past 12 Hours) Vital Signs Temp Pulse Resp BP Pulse Ox 03/26/21 15:21 36.8 C 100 H 18 122/58 L 99 03/26/21 13:01 96 H 18 106/61 97 03/26/21 12:45 94 H 16 109/67 97 03/26/21 12:30 96 H 15 115/73 96 03/26/21 12:10 95 H 24 128/92 100 03/26/21 10:42 37.0 C 111 H 20 142/78 H 100 Laboratory Results Short CBC 03/26/21 Range/Units 11:42 WBC 7.19 (4.8-10.8) K/uL Hgb 5.4 L* (12.0-16.0) g/dL Hct 22.0 L (37-47) % Plt Count 393 (130-400) K/uL BMP 03/26/21 11:42 Sodium 138 Potassium 3.8 Chloride 109 H Carbon Dioxide 25 BUN 12 Creatinine 0.65 Glucose 88 Calcium 9.0 Liver Function 03/26/21 Range/Units 11:42 Total Bilirubin 0.6 (0.2-1) mg/dl AST 4 L (15-37) U/L ALT 12 (12-78) U/L Alkaline Phosphatase 86 (45-117) U/L Albumin 3.6 (3.4-5.0) gm/dl Code Status & VTE Plan VTE Prophylaxis Plan VTE Prophylaxis will be ordered: No Supervising Physician Co-Signing Physician Notes Patient seen and examined by me, care coordinated with Jennifer Aleman PA-C, please refer to her note above for further detail. Patient is a 26-year-old female with history of fibroids and iron deficiency anemia, hx of prior surgical procedure myomectomy for bleeding. She was having blood work done with hematology, and was found to have hemoglobin low as 5.4. She also experienced some exertional dyspnea, and tachycardia, episode of pre- syncope yesterday. In the ED blood consent was obtained, and patient is currently being transfused. 2 units of packed red blood cells ordered. Case was also discussed with gynecology, likely will start Depo-Provera. Currently patient is lying in bed, in no acute distress. She is alert and oriented and answering questions appropriately, she is in no acute distress. She is slightly tachycardic, lung sounds clear to auscultation bilaterally without wheezing rhonchi or crackles. Abdomen is soft, nontender, nondistended, obese. No lower extremity edema. Moves extremities spontaneously and without difficulty. Repeat H&H after 2 units of packed red blood cells. Closely monitor H&H. Richard Worthy MD
--- NOTE | 2021-03-26 16:20 | Emergency Department Note ---
Impression & Plan Severe anemia, Iron deficiency ED Provider Note INFORMANT: Patient ED PROVIDER(S): Mario Boston MD CHIEF COMPLAINT: Anemia PLAN: Disposition: Admitted Condition: Good Outpatient prescription management: none Referral: None MEDICAL DECISION MAKING: Patient presented to the emergency department noting significant shortness of breath, weakness and an iron deficiency history. Blood was obtained. She was found to be severely anemic with hemoglobin 5.4. The patient's iron studies indicate she is severely iron deficient as well. The remainder of her labs are unremarkable. I did consult with the [facility] hematology and blood transfusion was recommended. Patient was consented for packed red blood cell transfusion and this was ordered for ER administration. Consultation was made with the [facility] hospitalist service. Patient will be admitted by Dr. Johnson for further management. Triage Nursing notes reviewed and agree them. Vital Signs: reviewed and remarkable for borderline tachycardia Differential diagnosis: Symptomatic anemia, infection, dehydration, metabolic abnormality, hypo/hyperglycemia, electrolyte disturbance, anemia, hypoxia, cardiac sources, intracerebral event, toxicologic, neurologic, as well as other pathologies. Diagnostics interpreted by me: ECG: none Cardiac Monitoring: Cardiac monitoring ordered by me: The patient was placed on continuous cardiac monitoring and observed. It revealed a normal sinus rhythm at 99 beats per minute without ectopy or evidence of dysrhythmia. Imaging studies: Deferred HPI: The patient is a 26 year old female who presents to the Emergency Room with complaints of anemia. This started months ago when she was diagnosed with heavy vaginal bleeding secondary to fibroids and is worsening over the last several days. The patient states that she did well after her fibroid surgery and seemed to recover. She had iron treatments but never had a blood transfusion. The patient states over the last several days she has noted increasing shortness of breath with exertion, fatigue, had some nausea and vomiting and had outpatient blood work obtained. She was camping over the weekend and when she got back received a call from her supervisor [employer] noting that her blood count was 5.5 and she needed to get to the ER for evaluation. Currently the patient feels relatively well. Her father is present and notes that she does not look pale. Patient states she has had no increase in her vaginal bleeding issues. Pt denies LOC, headache, fevers, chills, diaphoresis, visual changes, neck pain, chest pain, abdominal pain, back pain, melena, hematochezia, urinary symptoms, numbness, focal weakness, lymphadenopathy, rash, or other complaints. ROS: See above HPI for pertinent positives & negatives. A total of 10 systems reviewed and were otherwise negative. PAST MEDICAL HISTORY:See Below , iron deficiency anemia PAST SURGICAL HISTORY:See Below, FAMILY HISTORY:See Below SOCIAL HISTORY:See Below, no alcohol or tobacco HOME MEDICATIONS:See Below ALLERGIES:See Below VITALS:See Below PHYSICAL EXAMINATION: GENERAL: Awake, alert, well-appearing, in no distress HENT: Normocephalic, atraumatic. Oropharynx unremarkable. EYES: Pale conjunctiva. Sclera non-icteric. NECK: Inspection normal. Non-tender. Supple. No nuchal rigidity. FROM. No masses. RESPIRATORY: Clear to auscultation. No wheezes. No rales. Normal respiratory effort. CARDIAC: Normal rate. Normal rhythm. No murmurs. No rubs. Extremities warm and well perfused. Pulses equal. No JVD. GI: Soft, non-distended. No tenderness to palpation. No rebound or guarding. No masses. RECTAL: Deferred. MUSCULOSKELETAL: Atraumatic. Chest examination reveals no tenderness. The back is symmetrical on inspection without obvious abnormality. There is no CVA tenderness to palpation. No joint edema. LOWER EXTREMITIES: Calves are equal size bilaterally and non-tender. No edema. No discoloration. NEURO: Normal sensorium. No sensory or motor deficits noted. SKIN: No rash or jaundice noted. CRITICAL CARE: I have personally spent greater than 32 minutes of critical care time in the direct management of this patient. This includes bedside care, interpretation of diagnostic studies, and testing, discussion with consultants, patient, and family members, and other required patient management activities. These minutes are in excess of all separately billable procedures. Mario Boston MD Past Med/Surg History Medical History ADHD Will be starting Adderall in near future Anemia secondary to bleeding from fibroids Anxiety Depression PCOS (polycystic ovarian syndrome) Recently started on Metformin Scoliosis Mild Seasonal allergies Stress headaches Surgical History History of adenoidectomy History of myringotomy [place] teeth extracted Family History Mother History of anesthesia reaction difficulty breathing after anesthesia due to asthma> resolved during recovery. happened x1 Diabetes Social History Smoking Status: Never smoker Second Hand Exposure: No; Hx Alcohol Use: No Hx Substance Use: No Preferred Language: Czech Communication Ability: Effective French Instructor Required: No Beliefs That Will Affect Care: None Current Living Situation: Alone Feels Safe at Home: Yes Assistive Devices: None Allergies Allergies Allergy/AdvReac Type Severity Reaction Status Date / Time nickel Allergy Intermediate Rash Verified 03/26/21 11:31 Home Meds Home Medications Medication Instructions Recorded Confirmed fluticasone propionate [Flonase 2 spray INTRANASAL DAILY PRN 05/31/19 03/26/21 Allergy Relief] loratadine 10 mg PO DAILY PRN 05/31/19 03/26/21 amitriptyline 50 mg PO HS 08/07/20 03/26/21 norgestimate-ethinyl estradiol 1 tab PO PM 08/07/20 03/26/21 [Sprintec (28)] metformin 500 mg BID 08/17/20 03/26/21 clonidine HCl 0.1 mg PO HS 12/02/20 03/26/21 dextroamphetamine-amphetamine 15 mg PO QAM 12/02/20 03/26/21 Results & Data (ED) Vital Signs Vital Signs - 24 hr 03/26/21 10:42 03/26/21 12:10 03/26/21 12:30 Temperature 37.0 C Temperature Source Oral Pulse Rate 111 H 95 H 96 H Pulse Rate from SpO2 Sensor 96 H Pulse Rhythm Pulse Strength Respiratory Rate 20 24 15 Respiratory Effort / Characteristics Non-Labored Respiratory Depth Normal Blood Pressure 142/78 H 128/92 115/73 Blood Pressure Mean 99 104 87 Blood Pressure Position Pulse Oximetry 100 100 96 Oxygen Delivery Method Room Air Sepsis Recent Fever Within 48 Hours No Sepsis New/Unexplained Change in Mental Status N/A Sepsis Action Taken by Nursing No Action Required 03/26/21 12:45 03/26/21 13:01 03/26/21 15:21 Temperature 36.8 C Temperature Source Oral Pulse Rate 94 H 96 H 100 H Pulse Rate from SpO2 Sensor Pulse Rhythm Regular Pulse Strength Respiratory Rate 16 18 18 Respiratory Effort / Characteristics Respiratory Depth Blood Pressure 109/67 106/61 122/58 L Blood Pressure Mean 81 76 79 Blood Pressure Position Sitting Pulse Oximetry 97 97 99 Oxygen Delivery Method Sepsis Recent Fever Within 48 Hours Sepsis New/Unexplained Change in Mental Status Sepsis Action Taken by Nursing 03/26/21 15:39 03/26/21 15:54 Temperature 36.9 C 37.0 C Temperature Source Oral Oral Pulse Rate 97 H 99 H Pulse Rate from SpO2 Sensor Pulse Rhythm Regular Regular Pulse Strength Normal Normal Respiratory Rate 18 17 Respiratory Effort / Characteristics Respiratory Depth Blood Pressure 95/48 L 123/83 Blood Pressure Mean 63 96 Blood Pressure Position Sitting Semi-fowlers Pulse Oximetry 99 100 Oxygen Delivery Method Sepsis Recent Fever Within 48 Hours Sepsis New/Unexplained Change in Mental Status Sepsis Action Taken by Nursing Laboratory Data Result diagrams: 03/26/21 11:42 03/26/21 11:42 Lab Results 03/26/21 03/26/21 03/26/21 Range/Units 11:42 11:42 11:42 WBC 7.19 (4.8-10.8) K/uL RBC 3.95 L (4.2-5.4) M/uL Hgb 5.4 L* (12.0-16.0) g/dL Hct 22.0 L (37-47) % MCV 55.7 L (80-100) fL MCH 13.7 L (25-34) pg MCHC 24.5 L (32-36) g/dL RDW Std Deviation 41.6 (36.4-46.3) fL RDW Coeff of Ashley 21.2 H (11.5-14.5) % Plt Count 393 (130-400) K/uL Immature Gran % (Auto) 1.0 % Neut % (Auto) 67.8 % Lymph % (Auto) 22.3 % [place] % (Auto) 6.3 % Eos % (Auto) 2.2 % Baso % (Auto) 0.4 % Neut # (Auto) 4.88 (1.4-6.5) K/uL Lymph # (Auto) 1.60 (1.2-3.4) K/uL [place] # (Auto) 0.45 (0.11-0.59) K/uL Eos # (Auto) 0.16 (0-0.5) K/uL Baso # (Auto) 0.03 (0-0.2) K/uL Immature Gran # (Auto) 0.07 H (0.00-0.02) K/uL Absolute Nucleated RBC 0.13 H (0-0) K/uL Nucleated RBC % (auto) 1.8 % Polychromasia 1+ Hypochromasia Present Anisocytosis Present Microcytosis Present Tear Drop Cells 1+ Sodium 138 (136-145) mmol/L Potassium 3.8 (3.5-5.1) mmol/L Chloride 109 H (98-107) mmol/L Carbon Dioxide 25 (21-32) mmol/L Anion Gap 4.0 (3-11) BUN 12 (7-18) mg/dl Creatinine 0.65 (0.6-1.2) mg/dl Est Cr Clr Drug Dosing 150.0 ml/min Est GFR ( Amer) 142.0 ml/min Est GFR (Non-Af Amer) 122.5 ml/min BUN/Creatinine Ratio 18.3 (10-20) Glucose 88 (70-99) mg/dl Calcium 9.0 (8.5-10.1) mg/dl Iron 15 L (35-150) mcg/dl TIBC 468 H (250-450) mcg/dl Transferrin 354 (200-360) mg/dl Ferritin 1.6 L (8-388) ng/ml Total Bilirubin 0.6 (0.2-1) mg/dl AST 4 L (15-37) U/L ALT 12 (12-78) U/L Alkaline Phosphatase 86 (45-117) U/L Total Protein 7.2 (6.4-8.2) gm/dl Albumin 3.6 (3.4-5.0) gm/dl Globulin 3.6 (2.5-4.0) gm/dl Albumin/Globulin Ratio 1.0 (0.9-2) HCG, Qual Negative (Negative) COVID-19 Eval Order SARS-CoV-2 (PCR) (Negative) Blood Type Antibody Screen Crossmatch 03/26/21 03/26/21 03/26/21 Range/Units 12:27 13:26 13:26 WBC (4.8-10.8) K/uL RBC (4.2-5.4) M/uL Hgb (12.0-16.0) g/dL Hct (37-47) % MCV (80-100) fL MCH (25-34) pg MCHC (32-36) g/dL RDW Std Deviation (36.4-46.3) fL RDW Coeff of Ashley (11.5-14.5) % Plt Count (130-400) K/uL Immature Gran % (Auto) % Neut % (Auto) % Lymph % (Auto) % [place] % (Auto) % Eos % (Auto) % Baso % (Auto) % Neut # (Auto) (1.4-6.5) K/uL Lymph # (Auto) (1.2-3.4) K/uL [place] # (Auto) (0.11-0.59) K/uL Eos # (Auto) (0-0.5) K/uL Baso # (Auto) (0-0.2) K/uL Immature Gran # (Auto) (0.00-0.02) K/uL Absolute Nucleated RBC (0-0) K/uL Nucleated RBC % (auto) % Polychromasia Hypochromasia Anisocytosis Microcytosis Tear Drop Cells Sodium (136-145) mmol/L Potassium (3.5-5.1) mmol/L Chloride (98-107) mmol/L Carbon Dioxide (21-32) mmol/L Anion Gap (3-11) BUN (7-18) mg/dl Creatinine (0.6-1.2) mg/dl Est Cr Clr Drug Dosing ml/min Est GFR ( Amer) ml/min Est GFR (Non-Af Amer) ml/min BUN/Creatinine Ratio (10-20) Glucose (70-99) mg/dl Calcium (8.5-10.1) mg/dl Iron (35-150) mcg/dl TIBC (250-450) mcg/dl Transferrin (200-360) mg/dl Ferritin (8-388) ng/ml Total Bilirubin (0.2-1) mg/dl AST (15-37) U/L ALT (12-78) U/L Alkaline Phosphatase (45-117) U/L Total Protein (6.4-8.2) gm/dl Albumin (3.4-5.0) gm/dl Globulin (2.5-4.0) gm/dl Albumin/Globulin Ratio (0.9-2) HCG, Qual (Negative) COVID-19 Eval Order Covid19 at [facility] SARS-CoV-2 (PCR) NEGATIVE (Negative) Blood Type A Positive Antibody Screen NEGATIVE Crossmatch See Detail Discharge Plan Visit Data Chief Complaint: Nausea Stated Complaint: LOW IRON (5.5) DIZZY,NAUSEA,DOC REF ED Provider: Mario Boston Discharge Problem: Severe anemia, Iron deficiency Forms Stand Alone Forms: [facility] [employer] Prescriptions Prescriptions: No Action fluticasone propionate [Flonase Allergy Relief] 50 mcg/actuation [place],Suspension 2 spray INTRANASAL DAILY PRN (Reason: Allergy Symptoms) RF: 0 loratadine 10 mg Tablet 10 mg PO DAILY PRN (Reason: Allergy Symptoms) RF: 0 norgestimate-ethinyl estradiol [Sprintec (28)] 0.25-35 mg-mcg Tablet 1 tab PO PM RF: 0 amitriptyline 50 mg Tablet 50 mg PO HS RF: 0 metformin 500 mg Tablet 500 mg BID RF: 0 clonidine HCl 0.1 mg tablet 0.1 mg PO HS RF: 0 dextroamphetamine-amphetamine 15 mg capsule,extended release 24hr 15 mg PO QAM RF: 0
[2021-03-26] MEDS ORDERED: ONDANSETRON INJ 2 MG/ML 2 ML VIAL IV PRN (16:51)
[2021-03-26] MEDS ORDERED: ACETAMINOPHEN 325 MG TAB PO PRN (16:51)
[2021-03-26] MEDS ORDERED: POLYETHYLENE (MIRALAX) 17 GM PACK PO PRN (16:51)
[2021-03-26] MEDS ORDERED: FLUTICASONE PROPIONATE NA SPR 16 GM BTL NAE PRN (17:39)
[2021-03-26] MEDS ORDERED: LORATADINE 10 MG TAB PO PRN (17:39)
[2021-03-26] MEDS ORDERED: NORGESTIMATE/ETHINYL ESTRAD 0.25/0.035MG DSPK PO SCH (21:00)
[2021-03-26] MEDS ORDERED: AMITRIPTYLINE HCL 50 MG TAB PO SCH (21:00)
[2021-03-26] MEDS ORDERED: cloNIDine HCL 0.1 MG TAB PO SCH (21:00)
[2021-03-26] MEDS: metFORMIN HCL 500 MG TAB PO SCH (21:19)
[2021-03-26 22:56] LABS: Appearance Urine Clear (Clear); Bilirubin Urine Negative (Negative); Blood Urine Negative (Negative); Color Urine Yellow; Glucose Urine UA Negative (Negative); Ketones Urine Negative (Negative); Leukocyte Esterase Urine Negative (Negative); Nitrite Urine Negative (Negative); Protein Urine Negative (Negative); Specific Gravity Urine 1.021 (1.000-1.030); Urobilinogen Urine Negative (Negative)
[2021-03-26 23:59] LABS: Hemoglobin 7.5 g/dL (12.0-16.0)
[2021-03-27 07:07] LABS: Hematocrit (blood only) 26.9 % (37-47); Hemoglobin 7.4 g/dL (12.0-16.0); Mean Corpuscular Hemoglobin 17.5 pg (25-34); Mean Corpuscular Hgb Conc 27.5 g/dL (32-36); Mean Corpuscular Volume 63.6 fL (80-100); Nucleated RBC # (auto) 0.11 K/uL (0-0); Nucleated RBC % (auto) 1.2 %; Platelet Count 374 K/uL (130-400); RDW Standard Deviation 64.5 fL (36.4-46.3); Red Blood Count 4.23 M/uL (4.2-5.4)
--- NOTE | 2021-03-27 07:27 | OB/GYN Consultation ---
Date of Consultation March 27, 2021 Assessment & Plan (1) PCOS (polycystic ovarian syndrome): MUSIC CATALOGUER consult dictated Plan; Recommend starting pt on Depo Provera 15mg IM Q 3 months pt agrees with medication start f/u in office with Dr Vasquez History of Present Illness Attending Physician: Chalino Worthy MD Allergies Allergy/AdvReac Type Severity Reaction Status Date / Time nickel Allergy Intermediate Rash Verified 03/26/21 11:31 Home Medications Medication Instructions Recorded Confirmed Type fluticasone propionate [Flonase 2 spray INTRANASAL DAILY PRN 05/31/19 03/26/21 History Allergy Relief] loratadine 10 mg PO DAILY PRN 05/31/19 03/26/21 History amitriptyline 50 mg PO HS 08/07/20 03/26/21 History norgestimate-ethinyl estradiol 1 tab PO PM 08/07/20 03/26/21 History [Sprintec (28)] metformin 500 mg BID 08/17/20 03/26/21 History clonidine HCl 0.1 mg PO HS 12/02/20 03/26/21 History dextroamphetamine-amphetamine 15 mg PO QAM 12/02/20 03/26/21 History Patient History Medical History ADHD Will be starting Adderall in near future Anemia secondary to bleeding from fibroids Anxiety Chronic headaches Depression Ovarian cyst PCOS (polycystic ovarian syndrome) Recently started on Metformin Scoliosis Mild Seasonal allergies Stress headaches Surgical History History of adenoidectomy History of myringotomy [place] teeth extracted Family History Mother History of anesthesia reaction difficulty breathing after anesthesia due to asthma> resolved during recovery. happened x1 Diabetes Social History Smoking Status: Never smoker Second Hand Exposure: No; Hx Alcohol Use: No Hx Substance Use: No Preferred Language: Ukrainian Communication Ability: Effective Porcelain Mixer Required: No Beliefs That Will Affect Care: None Current Living Situation: Alone Other Information That Helps Us Care for You: No Feels Safe at Home: Yes Safety Concerns: Feels Safe At This Time Assistive Devices: None Results & Data ([place]) Vital Signs (Past 12 Hours) Vital Signs Temp Pulse Pulse Resp BP BP Pulse Ox 03/27/21 04:50 36.8 C 83 20 129/68 99 03/26/21 23:00 36.7 C 101 H 96 H 20 117/76 99 03/26/21 21:00 36.8 C 94 H 18 134/80 99 03/26/21 20:05 37 C 91 H 18 120/77 97 03/26/21 19:34 36.7 C 99 H 20 127/79 98
[2021-03-27 07:41] LABS: BUN Creatinine Ratio 20.7 (10-20); Calcium 8.9 mg/dl (8.5-10.1); Creatinine Clr Calc Pharmacy 153.2 ml/min; Est GFR (African American) 142.7 ml/min; Est GFR (Non-African American) 123.2 ml/min; Potassium 3.9 mmol/L (3.5-5.1)
[2021-03-27] MEDS: metFORMIN HCL 500 MG TAB PO SCH (08:02)
[2021-03-27] MEDS ORDERED: DEXTROAMPHETAMINE/AMPHETAMINE ER 5 MG CAP PO SCH (09:00)
--- NOTE | 2021-03-27 09:33 | Hospitalist Progress Note ---
Date of Service March 27, 2021 Assessment & Plan (1) Severe anemia: (2) Iron deficiency: (3) Fibroids: This is a 26-year-old female with history of fibroids, iron deficiency anemia, PCOS and other medical problems listed below who presents after being directed here by hematology clinic due to symptomatic severe anemia. 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 East for IV iron infusions, last one in Apr 2020 HR initially 111, improved to 96, appears stable and comfortable on admission Received 2u prbcs on admission Discussed case with Dr. Downing, who recommends Depo-Provera injection - patient interested but requested to discuss further. Routine obgyn consult placed Monitor on telemetry overnight Hemoglobin 7.4, stable from last evening Patient agreeable to Depo-Provera injection, ordered However she still reports feeling nauseous and dizzy and she is still mildly tachycardic this morning We will continue to closely monitor (4) Chronic headaches: Continue prophylactic Amitriptyline HS, Zanaflex PRN (5) PCOS (polycystic ovarian syndrome): Continue metformin DVT Ppx: ab thiernoissac Code status: FULL PCP: Dr. Dean Dispo: Observation PCU Admission and Anticipated Discharge Date Admission Date: March 26, 2021 Subjective Patient seen in follow-up of anemia, secondary to fibroids, acute on chronic bleed Underwent blood transfusion with 2 units of packed red blood cells, her hemoglobin 7.4 Discussed with CEMENT MASON, patient agreeable to Depo-Provera shot However she reports that she still feels dizzy and nauseous, she was however able to tolerate dinner last night and breakfast this morning She still tachycardic Review of Systems Review of Systems: All systems reviewed & are unremarkable except as noted in HPI & below Constitutional: no fever and no chills Respiratory: no cough and no dyspnea Cardiovascular: no chest pain and no palpitations Gastrointestinal: no abdominal pain, no nausea and no vomiting Physical Exam Physical Exam: General Appearance: WD/WN, NAD, sitting up in bed Head: normocephalic, atraumatic Eyes: normal inspection, PERRL, EOMI, conjunctivae normal, anicteric sclerae ENT: external ear and nose normal, oropharynx normal Neck: normal visual inspection, trachea midline, no thyromegaly Respiratory: normal respiratory effort, lungs clear to auscultation, no wheeze, rales, rhonchi. No accessory muscle use Cardiovascular: tachycardic HR low 100s, no murmur, normal peripheral pulses, no BLE edema. Vessels: no JVD Chest: normal inspection of chest Abdomen/GI: normal bowel sounds, soft, nontender Extremities/Musculoskeletal: extremities motor strength 5/5 Neurologic: PERRL, EOMI, no face palsy, no dysarthria, moves all extremities Psychiatric: A+Ox3, euthymic affect Skin: no rashes, pale, warm/dry Results & Data Results & Data ([facility]) Vital Signs (Past 12 Hours) Vital Signs Temp Pulse Pulse Resp BP Pulse Ox 03/27/21 08:21 36.6 C 102 H 20 135/58 L 98 03/27/21 08:00 80 03/27/21 04:50 36.8 C 83 20 129/68 99 03/26/21 23:00 36.7 C 101 H 96 H 20 117/76 99 Laboratory Results 03/27/21 03/27/21 03/26/21 Range/Units 06:40 06:40 23:06 WBC 9.50 (4.8-10.8) K/uL RBC 4.23 (4.2-5.4) M/uL Hgb 7.4 L 7.5 L (12.0-16.0) g/dL Hct 26.9 L 27.0 L (37-47) % MCV 63.6 L D (80-100) fL MCH 17.5 L (25-34) pg MCHC 27.5 L (32-36) g/dL RDW Std Deviation 64.5 H (36.4-46.3) fL RDW Coeff of Ashley 29.0 H (11.5-14.5) % Plt Count 374 (130-400) K/uL Immature Gran % (Auto) % Neut % (Auto) % Lymph % (Auto) % Pepin % (Auto) % Eos % (Auto) % Baso % (Auto) % Neut # (Auto) (1.4-6.5) K/uL Lymph # (Auto) (1.2-3.4) K/uL Pepin # (Auto) (0.11-0.59) K/uL Eos # (Auto) (0-0.5) K/uL Baso # (Auto) (0-0.2) K/uL Immature Gran # (Auto) (0.00-0.02) K/uL Absolute Nucleated RBC 0.11 H (0-0) K/uL Nucleated RBC % (auto) 1.2 % Polychromasia Hypochromasia Anisocytosis Microcytosis Tear Drop Cells Sodium 141 (136-145) mmol/L Potassium 3.9 (3.5-5.1) mmol/L Chloride 110 H (98-107) mmol/L Carbon Dioxide 25 (21-32) mmol/L Anion Gap 6.0 (3-11) BUN 13 (7-18) mg/dl Creatinine 0.64 (0.6-1.2) mg/dl Est Cr Clr Drug Dosing 153.2 ml/min Est GFR ( Amer) 142.7 ml/min Est GFR (Non-Af Amer) 123.2 ml/min BUN/Creatinine Ratio 20.7 H (10-20) Glucose 79 (70-99) mg/dl Calcium 8.9 (8.5-10.1) mg/dl Iron (35-150) mcg/dl TIBC (250-450) mcg/dl Transferrin (200-360) mg/dl Ferritin (8-388) ng/ml Total Bilirubin (0.2-1) mg/dl AST (15-37) U/L ALT (12-78) U/L Alkaline Phosphatase (45-117) U/L Total Protein (6.4-8.2) gm/dl Albumin (3.4-5.0) gm/dl Globulin (2.5-4.0) gm/dl Albumin/Globulin Ratio (0.9-2) HCG, Qual (Negative) Urine Color Urine Appearance (Clear) Urine pH (4.5-7.5) Ur Specific [place] (1.000-1.030) Urine Protein (Negative) Urine Glucose (UA) (Negative) Urine Ketones (Negative) Urine Blood (Negative) Urine Nitrite (Negative) Urine Bilirubin (Negative) Urine Urobilinogen (Negative) Ur Leukocyte Esterase (Negative) COVID-19 Eval Order SARS-CoV-2 (PCR) (Negative) Blood Type Antibody Screen Crossmatch 03/26/21 03/26/21 03/26/21 Range/Units 22:30 13:26 13:26 WBC (4.8-10.8) K/uL RBC (4.2-5.4) M/uL Hgb (12.0-16.0) g/dL Hct (37-47) % MCV (80-100) fL MCH (25-34) pg MCHC (32-36) g/dL RDW Std Deviation (36.4-46.3) fL RDW Coeff of Ashley (11.5-14.5) % Plt Count (130-400) K/uL Immature Gran % (Auto) % Neut % (Auto) % Lymph % (Auto) % Pepin % (Auto) % Eos % (Auto) % Baso % (Auto) % Neut # (Auto) (1.4-6.5) K/uL Lymph # (Auto) (1.2-3.4) K/uL Pepin # (Auto) (0.11-0.59) K/uL Eos # (Auto) (0-0.5) K/uL Baso # (Auto) (0-0.2) K/uL Immature Gran # (Auto) (0.00-0.02) K/uL Absolute Nucleated RBC (0-0) K/uL Nucleated RBC % (auto) % Polychromasia Hypochromasia Anisocytosis Microcytosis Tear Drop Cells Sodium (136-145) mmol/L Potassium (3.5-5.1) mmol/L Chloride (98-107) mmol/L Carbon Dioxide (21-32) mmol/L Anion Gap (3-11) BUN (7-18) mg/dl Creatinine (0.6-1.2) mg/dl Est Cr Clr Drug Dosing ml/min Est GFR ( Amer) ml/min Est GFR (Non-Af Amer) ml/min BUN/Creatinine Ratio (10-20) Glucose (70-99) mg/dl Calcium (8.5-10.1) mg/dl Iron (35-150) mcg/dl TIBC (250-450) mcg/dl Transferrin (200-360) mg/dl Ferritin (8-388) ng/ml Total Bilirubin (0.2-1) mg/dl AST (15-37) U/L ALT (12-78) U/L Alkaline Phosphatase (45-117) U/L Total Protein (6.4-8.2) gm/dl Albumin (3.4-5.0) gm/dl Globulin (2.5-4.0) gm/dl Albumin/Globulin Ratio (0.9-2) HCG, Qual (Negative) Urine Color Yellow Urine Appearance Clear (Clear) Urine pH 7.0 (4.5-7.5) Ur Specific [place] 1.021 (1.000-1.030) Urine Protein Negative (Negative) Urine Glucose (UA) Negative (Negative) Urine Ketones Negative (Negative) Urine Blood Negative (Negative) Urine Nitrite Negative (Negative) Urine Bilirubin Negative (Negative) Urine Urobilinogen Negative (Negative) Ur Leukocyte Esterase Negative (Negative) COVID-19 Eval Order Covid19 at [facility] SARS-CoV-2 (PCR) NEGATIVE (Negative) Blood Type Antibody Screen Crossmatch 03/26/21 03/26/21 03/26/21 Range/Units 12:27 11:42 11:42 WBC (4.8-10.8) K/uL RBC (4.2-5.4) M/uL Hgb (12.0-16.0) g/dL Hct (37-47) % MCV (80-100) fL MCH (25-34) pg MCHC (32-36) g/dL RDW Std Deviation (36.4-46.3) fL RDW Coeff of Ashley (11.5-14.5) % Plt Count (130-400) K/uL Immature Gran % (Auto) % Neut % (Auto) % Lymph % (Auto) % Pepin % (Auto) % Eos % (Auto) % Baso % (Auto) % Neut # (Auto) (1.4-6.5) K/uL Lymph # (Auto) (1.2-3.4) K/uL Pepin # (Auto) (0.11-0.59) K/uL Eos # (Auto) (0-0.5) K/uL Baso # (Auto) (0-0.2) K/uL Immature Gran # (Auto) (0.00-0.02) K/uL Absolute Nucleated RBC (0-0) K/uL Nucleated RBC % (auto) % Polychromasia Hypochromasia Anisocytosis Microcytosis Tear Drop Cells Sodium 138 (136-145) mmol/L Potassium 3.8 (3.5-5.1) mmol/L Chloride 109 H (98-107) mmol/L Carbon Dioxide 25 (21-32) mmol/L Anion Gap 4.0 (3-11) BUN 12 (7-18) mg/dl Creatinine 0.65 (0.6-1.2) mg/dl Est Cr Clr Drug Dosing 150.0 ml/min Est GFR ( Amer) 142.0 ml/min Est GFR (Non-Af Amer) 122.5 ml/min BUN/Creatinine Ratio 18.3 (10-20) Glucose 88 (70-99) mg/dl Calcium 9.0 (8.5-10.1) mg/dl Iron 15 L (35-150) mcg/dl TIBC 468 H (250-450) mcg/dl Transferrin 354 (200-360) mg/dl Ferritin 1.6 L (8-388) ng/ml Total Bilirubin 0.6 (0.2-1) mg/dl AST 4 L (15-37) U/L ALT 12 (12-78) U/L Alkaline Phosphatase 86 (45-117) U/L Total Protein 7.2 (6.4-8.2) gm/dl Albumin 3.6 (3.4-5.0) gm/dl Globulin 3.6 (2.5-4.0) gm/dl Albumin/Globulin Ratio 1.0 (0.9-2) HCG, Qual Negative (Negative) Urine Color Urine Appearance (Clear) Urine pH (4.5-7.5) Ur Specific [place] (1.000-1.030) Urine Protein (Negative) Urine Glucose (UA) (Negative) Urine Ketones (Negative) Urine Blood (Negative) Urine Nitrite (Negative) Urine Bilirubin (Negative) Urine Urobilinogen (Negative) Ur Leukocyte Esterase (Negative) COVID-19 Eval Order SARS-CoV-2 (PCR) (Negative) Blood Type A Positive Antibody Screen NEGATIVE Crossmatch See Detail 03/26/21 Range/Units 11:42 WBC 7.19 (4.8-10.8) K/uL RBC 3.95 L (4.2-5.4) M/uL Hgb 5.4 L* (12.0-16.0) g/dL Hct 22.0 L (37-47) % MCV 55.7 L (80-100) fL MCH 13.7 L (25-34) pg MCHC 24.5 L (32-36) g/dL RDW Std Deviation 41.6 (36.4-46.3) fL RDW Coeff of Ashley 21.2 H (11.5-14.5) % Plt Count 393 (130-400) K/uL Immature Gran % (Auto) 1.0 % Neut % (Auto) 67.8 % Lymph % (Auto) 22.3 % Pepin % (Auto) 6.3 % Eos % (Auto) 2.2 % Baso % (Auto) 0.4 % Neut # (Auto) 4.88 (1.4-6.5) K/uL Lymph # (Auto) 1.60 (1.2-3.4) K/uL Pepin # (Auto) 0.45 (0.11-0.59) K/uL Eos # (Auto) 0.16 (0-0.5) K/uL Baso # (Auto) 0.03 (0-0.2) K/uL Immature Gran # (Auto) 0.07 H (0.00-0.02) K/uL Absolute Nucleated RBC 0.13 H (0-0) K/uL Nucleated RBC % (auto) 1.8 % Polychromasia 1+ Hypochromasia Present Anisocytosis Present Microcytosis Present Tear Drop Cells 1+ Sodium (136-145) mmol/L Potassium (3.5-5.1) mmol/L Chloride (98-107) mmol/L Carbon Dioxide (21-32) mmol/L Anion Gap (3-11) BUN (7-18) mg/dl Creatinine (0.6-1.2) mg/dl Est Cr Clr Drug Dosing ml/min Est GFR ( Amer) ml/min Est GFR (Non-Af Amer) ml/min BUN/Creatinine Ratio (10-20) Glucose (70-99) mg/dl Calcium (8.5-10.1) mg/dl Iron (35-150) mcg/dl TIBC (250-450) mcg/dl Transferrin (200-360) mg/dl Ferritin (8-388) ng/ml Total Bilirubin (0.2-1) mg/dl AST (15-37) U/L ALT (12-78) U/L Alkaline Phosphatase (45-117) U/L Total Protein (6.4-8.2) gm/dl Albumin (3.4-5.0) gm/dl Globulin (2.5-4.0) gm/dl Albumin/Globulin Ratio (0.9-2) HCG, Qual (Negative) Urine Color Urine Appearance (Clear) Urine pH (4.5-7.5) Ur Specific [place] (1.000-1.030) Urine Protein (Negative) Urine Glucose (UA) (Negative) Urine Ketones (Negative) Urine Blood (Negative) Urine Nitrite (Negative) Urine Bilirubin (Negative) Urine Urobilinogen (Negative) Ur Leukocyte Esterase (Negative) COVID-19 Eval Order SARS-CoV-2 (PCR) (Negative) Blood Type Antibody Screen Crossmatch Medications Administered Current Inpatient Medications Acetaminophen (Acetaminophen 325 Mg Tab) 650 mg PO Q4H PRN PRN Reason: Pain or Fever Stop: 04/25/21 16:50 Amitriptyline HCl (Amitriptyline Hcl 50 Mg Tab) 50 mg PO [facility] Stop: 04/25/21 20:59 Last Admin: 03/26/21 21:19 Dose: 50 mg Documented by: Amphetamine/Dextroamphetamine (Dextroamphetamine/Amphetamine Er 5 Mg Cap) [facility] Stop: 04/10/21 08:59 Last Admin: 03/27/21 08:09 Dose: 15 mg Documented by: Clonidine HCl (Clonidine Hcl 0.1 Mg Tab) 0.1 mg PO [facility] Stop: 04/25/21 20:59 Last Admin: 03/26/21 21:19 Dose: 0.1 mg Documented by: Fluticasone Propionate (Fluticasone Propionate Na Spr 16 Gm Btl) 2 sprays [place] DAILY PRN PRN Reason: Allergy Symptoms Stop: 04/25/21 17:38 Loratadine (Loratadine 10 Mg Tab) 10 mg PO DAILY PRN PRN Reason: Allergy Symptoms Stop: 04/25/21 17:38 Medroxyprogesterone Acetate (Medroxyprogesterone Acetate 150 Mg/Ml Vial) 150 mg IM ONE ONE Stop: 03/27/21 09:30 Metformin HCl (Metformin Hcl 500 Mg Tab) 500 mg PO BID [facility] Stop: 04/25/21 20:59 Last Admin: 03/27/21 08:02 Dose: 500 mg Documented by: Norgestimate (Norgestimate/Ethinyl Estrad 0.25/0.035mg Dspk) 1 tab PO PM [facility]; Protocol Stop: 04/25/21 20:59 Last Admin: 03/26/21 21:18 Dose: 1 tab Documented by: Ondansetron HCl (Ondansetron Inj 2 Mg/Ml 2 Ml Vial) 4 mg IV Q6H PRN PRN Reason: Nausea Stop: 04/25/21 16:50 Polyethylene Glycol (Polyethylene (Miralax) 17 Gm Pack) 17 gm PO DAILY PRN PRN Reason: Constipation Stop: 04/25/21 16:50
--- NOTE | 2021-03-27 09:58 | Consultation Report ---
GYNECOLOGY CONSULTATION DATE OF CONSULTATION: 03/27/2021 Consult is placed by Dr. Johnson. HISTORY OF PRESENT ILLNESS: This is a 26-year-old with a history of PCOS, status post myomectomy in 08/2020. The patient had been doing well since her myomectomy. She had a myomectomy for heavy bleed ing and her bleeding has since improved. She has been on control pills, Sprintec to be exact. The patient was seen in the Emergency Room today because of headache and severe fatigue. She has be en experiencing some heavy bleeding in the last 2 to 3 months and has been asymptomatic. In the ER, her hemoglobin was found to be 5.4, hematocrit of 22. The patient was admitted and has been transfus ed 2 units of blood. [employer] consult was placed. PAST MEDICAL HISTORY: PCOS, chronic headaches, severe anemia, iron deficiency and fibroids. PAST SURGICAL HISTORY: Dental surgery, myomectomy in 08/2020. ALLERGIES: No known drug allergies. SOCIAL HISTORY: The patient denies tobacco, drug or alcohol use. FAMILY HISTORY: Noncontributory. PHYSICAL EXAMINATION: GENERAL: Well-developed, well-nourished white female in no acute distress. VITAL SIGNS: Blood pressure is 110/68, pulse is 83, respirations 20, temperature 36.8. HEART: S1, S2 heard. Regular rhythm and rate. LUNGS: Clear to auscultation bilaterally. ABDOMEN: Nontender, nondistended, positive bowel sounds. EXTREMITIES: No cyanosis, clubbing or edema. PELVIC: Menses is remarkably improved. ASSESSMENT AND PLAN: A 26-year-old with menorrhagia, status post fibroid uterus and myomectomy. The patient has a history of polycystic ovary syndrome. The patient is on Sprintec. Menses are heavy q . monthly even after myomectomy. Discussed other options including Depo-Provera; the patient has agre ed to Depo-Provera. My recommendation for this consult is that the patient be started on Depo-Orthotics Prosthetics Technician a 150 mg IM every 3 months. Thank you very much for this consultation and please let me know if there is anything else we can do for you. Job ID: [id number]
--- NOTE | 2021-03-27 17:13 | Discharge Summary ---
Date of Service March 27, 2021 Admission HPI Per Admitting Provider This is a 26-year-old female with history of fibroids, iron deficiency anemia, PCOS and other medical problems listed below who presents after being directed here by hematology clinic due to abnormal lab work. Patient with history of extensive fibroids with abdominal myomectomies in August [address] Vasquez. Bleeding improved at that point, but. Is irregular due to PCOS despite being on combo control pill Sprintec. Still endorses 15 to 20 days of bleeding per month requiring her to change an ultra tampon every 4 hours. Endorsing vaginal bleeding over the past few days. Has had longstanding lightheadedness with positional changes due to ongoing anemia in setting of fibroids, but symptoms worsened over the past 2 weeks. Now also endorsing palpitations and shortness of breath with walking as well as an episode of blurry vision and near syncope yesterday. Has received IV iron in the past due to severe anemia, most recently in April 2020. Due to see Dr. East of hematology in a few days to discuss next dose of IV iron and did pre-appointment lab work, revealing a hemoglobin of 5.5 on 03/23/2021. Hematology nursing directed patient to come to ED for further evaluation due to symptoms related to severe anemia. Is currently receiving first unit of PRBCs in the ER. He is comfortable and hemodynamically stable with mild tachycardia. Endorses lightheadedness but is otherwise comfortable at rest. No fever, chills, visual changes, lightheadedness, chest pain, shortness of breath, nausea, vomiting, abdominal pain, dysuria, diarrhea constipation. Admission Exam Per Admitting Provider General Appearance: WD/WN, vitals as above, NAD, sitting up in bed, pleasant, conversing easily Head: normocephalic, atraumatic Eyes: normal inspection, PERRL, conjunctivae normal, anicteric sclerae ENT: external ear and nose normal, oropharynx normal Neck: normal visual inspection, trachea midline, no thyromegaly Respiratory: normal respiratory effort, lungs clear to auscultation, no wheeze, rales, rhonchi. No accessory muscle use Cardiovascular: tachycardic, rhythm, no murmur, normal peripheral pulses, no BLE edema. Vessels: no JVD Chest: normal inspection of chest Abdomen/GI: normal bowel sounds, soft, nontender, no hepatosplenomegaly Extremities/Musculoskeletal: no cyanosis or clubbing, extremities motor strength 5/5 Neurologic: PERRL, EOMI, accommodation nl, no face palsy, no dysarthria, CN's II-XI intact bilaterally and moves all extremities Psychiatric: A+Ox3, euthymic affect Skin: no rashes, pale, warm/dry Principal Diagnosis Acute on chronic blood loss anemia secondary to fibroids Discharge Exam General Appearance: WD/WN, NAD, sitting up in bed Head: normocephalic, atraumatic Eyes: normal inspection, PERRL, EOMI, conjunctivae normal, anicteric sclerae ENT: external ear and nose normal, oropharynx normal Neck: normal visual inspection, trachea midline, no thyromegaly Respiratory: normal respiratory effort, lungs clear to auscultation, no wheeze, rales, rhonchi. No accessory muscle use Cardiovascular: tachycardic HR low 100s, no murmur, normal peripheral pulses, no BLE edema. Vessels: no JVD Chest: normal inspection of chest Abdomen/GI: normal bowel sounds, soft, nontender Extremities/Musculoskeletal: extremities motor strength 5/5 Neurologic: PERRL, EOMI, no face palsy, no dysarthria, moves all extremities Psychiatric: A+Ox3, euthymic affect Skin: no rashes, pale, warm/dry Discharge Data Allergies Allergy/AdvReac Type Severity Reaction Status Date / Time nickel Allergy Intermediate Rash Verified 03/26/21 11:31 Consultations 03/26/21 15:49 ED Decision to Admit Stat 03/26/21 17:05 Consult Gynecology Routine Hospital Course (1) Severe anemia: (2) Iron deficiency: (3) Fibroids: This is a 26-year-old female with history of fibroids, iron deficiency anemia, PCOS and other medical problems listed below who presents after being directed here by hematology clinic due to symptomatic severe anemia. 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 East for IV iron infusions, last one in Apr 2020 HR initially 111, improved to 96, appears stable and comfortable on admission Received 2u prbcs on admission Discussed case with Dr. Downing, who recommends Depo-Provera injection - patient interested but requested to discuss further. Routine obgyn consult placed Monitor on telemetry overnight Hemoglobin 7.4, stable from last evening Patient agreeable to Depo-Provera injection, ordered This AM feeling nauseous and dizzy and she is still mildly tachycardic We will continue to closely monitor This afternoon patient feels much better, is inquiring about going home, no longer tachycardic. She has appointment scheduled with curing press maintainer, Dr. East on Friday, that she will attend. Plan to discharge this evening. (4) Chronic headaches: Continue prophylactic Amitriptyline HS, Zanaflex PRN (5) PCOS (polycystic ovarian syndrome): Continue metformin DVT Ppx: ab english Code status: FULL PCP: Dr. Dean Dispo: Plan to DC home and follow up w/ curing press maintainer Total Time Total Time Spent Total Time Spent (In Minutes): 35 Total Time Includes: Examination of the Patient, Discharge Planning and Medication Reconciliation Discharge Plan Discharge Items Patient Disposition: Home - Self-Care Reason For Visit: SYMPTOMATIC ANEMIA Discharge Diagnosis: Acute on chronic blood loss anemia secondary to fibroids Activity: Per Instructions section Non-emergency contact: Primary Care Provider Call non-emergency contact if: you have any medication questions and your symptoms worsen Follow-up/Referrals: Elisa Dean MD [Primary Care Provider] - Diet: Regular Addtl Attending Provider Instructions: Follow-up with your curing press maintainer - Dr. East, on Friday as already scheduled. Make sure to inform your healthcare providers if you develop fevers, dizziness, lightheadedness, chest pain or shortness of breath. Pending Studies at Discharge: No Stand-Alone Forms: [facility]de, Smoking Cessation Medications and DC Order Prescriptions: Continued fluticasone propionate [Flonase Allergy Relief] 50 mcg/actuation [place],Suspension 2 spray INTRANASAL DAILY PRN (Reason: Allergy Symptoms) RF: 0 loratadine 10 mg Tablet 10 mg PO DAILY PRN (Reason: Allergy Symptoms) RF: 0 norgestimate-ethinyl estradiol [Sprintec (28)] 0.25-35 mg-mcg Tablet 1 tab PO PM RF: 0 amitriptyline 50 mg Tablet 50 mg PO HS RF: 0 metformin 500 mg Tablet 500 mg BID RF: 0 clonidine HCl 0.1 mg tablet 0.1 mg PO HS RF: 0 dextroamphetamine-amphetamine 15 mg capsule,extended release 24hr 15 mg PO QAM RF: 0 Discharge Orders: Discharge Order (Routine); Ordered 03/27/21 Ordered By: Chalino Worthy Admission Data Admit Date/Time: 03/26/21 15:38 Attending Provider: Chalino Worthy Admit Provider: Chalino Worthy Primary Care Provider: Elisa Dean Other Providers: Talat Johnson ; Ayo Downing
== END 2021-03-27 18:29 | disposition home or self-care (01) ==
LOC: ED 10:13 → 2S 10:13

== ENCOUNTER 2021-05-04 23:19 | Observation (INO) ==
[2021-05-04] MEDS ORDERED: SODIUM CHLORIDE 0.9% 1000ML 1,000 ML IV ONE (23:45)
[2021-05-04] MEDS ORDERED: OPTIRAY 320 125ml IV ONE (23:54)
[2021-05-05 00:07] LABS: Basophils # (auto) 0.02 K/uL (0-0.2); Basophils % (auto) 0.2 %; Eosinophils # (auto) 0.13 K/uL (0-0.5); Eosinophils % (auto) 1.5 %; Hematocrit (blood only) 36.2 % (37-47); Hemoglobin 10.9 g/dL (12.0-16.0); Immature Granulocytes # (auto) 0.02 K/uL (0.00-0.02); Immature Granulocytes % (auto) 0.2 %; Lymphocytes # (auto) 1.41 K/uL (1.2-3.4); Lymphocytes % (auto) 16.3 %; Mean Corpuscular Hgb Conc 30.1 g/dL (32-36); Mean Corpuscular Volume 69.7 fL (80-100); Mean Platelet Volume 9.3 fL (7.4-10.4); Monocytes # (auto) 0.51 K/uL (0.11-0.59); Monocytes % (auto) 5.9 %; Neutrophils # (auto) 6.58 K/uL (1.4-6.5); Neutrophils % (auto) 75.9 %; Platelet Count 357 K/uL (130-400); RDW Coefficient of Variation 25.7 % (11.5-14.5); RDW Standard Deviation 65.2 fL (36.4-46.3); Red Blood Count 5.19 M/uL (4.2-5.4); White Blood Count 8.67 K/uL (4.8-10.8)
[2021-05-05 00:17] LABS: Partial Thromboplastin Ratio 1.1; Prothrombin Time 10.6 Seconds (9.0-12.0)
[2021-05-05 00:23] LABS: Alanine Aminotransferase 15 U/L (12-78); Albumin Level 3.7 gm/dl (3.4-5.0); Aspartate Aminotransferase 7 U/L (15-37); BUN Creatinine Ratio 11.7 (10-20); Blood Urea Nitrogen 9 mg/dl (7-18); Calcium 9.1 mg/dl (8.5-10.1); Carbon Dioxide 25 mmol/L (21-32); Chloride 109 mmol/L (98-107); Est GFR (African American) 125.5 ml/min; Est GFR (Non-African American) 108.3 ml/min; Glucose 84 mg/dl (70-99); Magnesium 2.3 mg/dl (1.8-2.4); Potassium 3.6 mmol/L (3.5-5.1); Sodium 140 mmol/L (136-145)
[2021-05-05 00:28] LABS: Alkaline Phosphatase 95 U/L (45-117); Bilirubin,Total 0.4 mg/dl (0.2-1); Globulin 3.8 gm/dl (2.5-4.0); Total Protein 7.5 gm/dl (6.4-8.2); Troponin I < 0.015 ng/ml (0-0.045)
[2021-05-05] MEDS ORDERED: ACETAMINOPHEN 1,000 MG/100 ML VIAL IV STA (00:35)
--- NOTE | 2021-05-05 00:35 | Emergency Department Note ---
History of Present Illness General Chief complaint: Neuro Symptoms/Deficit Stated complaint: LEMUS, LEFT SIDED TINGLINESS, SLURRED SPEECH Time Seen by Provider: 05/04/21 23:30 History of Present Illness Maximum Pain Intensity: 10 This 26-year-old with chronic heavy vaginal bleeding going through multiple diapers and pads a day that is getting worse presents to the ER complaining of headache with left arm tingling and weakness for the past 3 and half hours that started while at a baseball game Location: Head and left arm Quality: Aching Severity: Moderate Duration: Today Timin.5 hours ago Context: Patient was concerned and came in Modifying factors: better with nothing; worse with nothing Patient states she developed a headache around 04/22/1930 at the ballgame. She lemus d difficulty with word finding and left arm tingling. This is persisted. She had to drop the kids off and then came here. Patient is a history of severe anemia requiring blood transfusion. No repeat blood testing since then. She has had some iron transfusions. Patient also feels fatigued. Patient denies chest pain, fever, chills, flulike illness, trauma. Home Medications Medication Instructions Recorded Confirmed Type fluticasone propionate 50 2 spray INTRANASAL DAILY PRN 05/31/19 05/05/21 History mcg/actuation nasal spray,suspension (Flonase Allergy Relief) loratadine 10 mg tablet 10 mg PO DAILY PRN 05/31/19 05/05/21 History amitriptyline 50 mg tablet 50 mg PO HS 08/07/20 05/05/21 History metformin 500 mg tablet 500 mg BID 08/17/20 05/05/21 History clonidine HCl 0.1 mg tablet 0.1 mg PO HS 12/02/20 05/05/21 History buspirone 5 mg tablet 5 mg PO BID 05/05/21 05/05/21 History dextroamphetamine-amphetamine ER 20 mg PO QAM 05/05/21 05/05/21 History 20 mg 24hr capsule,extend release Allergies Allergy/AdvReac Type Severity Reaction Status Date / Time nickel Allergy Intermediate Rash Verified 05/05/21 00:45 Past Med/Surg History Medical History ADHD Will be starting Adderall in near future Anemia secondary to bleeding from fibroids Anxiety Chronic headaches Depression Ovarian cyst PCOS (polycystic ovarian syndrome) Recently started on Metformin Scoliosis Mild Seasonal allergies Stress headaches Surgical History History of adenoidectomy History of myringotomy [place] teeth extracted Family History Mother History of anesthesia reaction difficulty breathing after anesthesia due to asthma> resolved during recovery. happened x1 Diabetes Social History Smoking Status: Never smoker Second Hand Exposure: No; Hx Alcohol Use: No Hx Substance Use: No Preferred Language: Bulgarian Communication Ability: Effective Giving Officer Required: No Beliefs That Will Affect Care: None Current Living Situation: Alone Feels Safe at Home: Yes Assistive Devices: None Review of Systems A total of 10 systems reviewed and were otherwise negative Physical Exam Vital Signs Vital Signs - 24 hr 05/04/21 23:23 05/05/21 00:01 05/05/21 00:21 Temperature 36.2 C L Temperature Source Temporal Artery Scan Pulse Rate 104 H 79 Pulse Rate [Finger] 93 H Pulse Rate from SpO2 Sensor 79 Respiratory Rate 16 16 16 Respiratory Effort / Characteristics Non-Labored Spontaneous Non-Labored Spontaneous Respiratory Depth Normal Normal Blood Pressure 132/88 128/77 Blood Pressure [Left Arm] 128/77 Blood Pressure Mean 102 94 Blood Pressure Mean [Left Arm] 94 Blood Pressure Position Sitting Pulse Oximetry 97 100 100 Oxygen Delivery Method Room Air Room Air Sepsis Recent Fever Within 48 Hours No Sepsis New/Unexplained Change in Mental Status N/A Sepsis Action Taken by Nursing No Action Required 05/05/21 00:30 Temperature Temperature Source Pulse Rate 90 Pulse Rate [Finger] Pulse Rate from SpO2 Sensor 92 H Respiratory Rate 14 Respiratory Effort / Characteristics Respiratory Depth Blood Pressure 126/80 Blood Pressure [Left Arm] Blood Pressure Mean 95 Blood Pressure Mean [Left Arm] Blood Pressure Position Pulse Oximetry 100 Oxygen Delivery Method Sepsis Recent Fever Within 48 Hours Sepsis New/Unexplained Change in Mental Status Sepsis Action Taken by Nursing VITALS: Vitals are noted on the nurse's note and reviewed by myself. Vital signs stable. GENERAL: Pleasant female following commands without difficulties fluent speech, in no acute distress, nondiaphoretic, well-developed well-nourished. SKIN: The skin was without rashes, erythema, edema, or bruising. There is no tenting of the skin. Capillary reflex less than 2 seconds. HEAD: Normocephalic atraumatic. EARS: External auditory canals clear, tympanic membranes pearly engle without erythema or effusion bilaterally. EYES: Pupils equal round and reactive to light and accommodation. Conjunctivae without injection, sclerae without icterus. Extraocular movements intact. NOSE: Patent, turbinates without inflammation or discharge. No sinus tenderness. MOUTH: Mucous membranes moist. Pharynx without erythema or exudate. Uvula midline. Airway patent. Tongue does not deviate. NECK: Supple without nuchal rigidity. No lymphadenopathy. No thyromegaly. Cervical spine is nontender. No JVD. HEART: Regular rate and rhythm without murmurs gallops or rubs. LUNGS: Clear to auscultation bilaterally without wheezes, rales or rhonchi. No retractions or accessory muscle use. ABDOMEN: Positive bowel sounds x 4. Normal tympanic percussion. Soft, nontender, without masses or organomegaly. Paz sign negative. No guarding or rebound tenderness. No CVA tenderness MUSCULOSKELETAL: No muscle atrophy, erythema, or edema noted. Left upper arm slightly weaker than the right. Lower legs 5 out of 5 strength bilaterally. NEURO: Patient was alert and oriented to person place and time. Normal sensation to light and sharp touch. Cranial nerves II through XII grossly inta ct. No prior drift. Cerebellar exam intact. No focal neurological deficits. Course Administered Medications Discontinued Medications Diphenhydramine HCl (Diphenhydramine 50 Mg/Ml Vial) 25 mg IV NOW STA Stop: 05/05/21 01:29 Last Admin: 05/05/21 01:42 Dose: 25 mg Documented by: [id number] Sodium Chloride (Nss 1000ml) 1,000 mls @ 999 mls/hr IV .Q1H1M ONE Stop: 05/05/21 00:45 Last Infusion: 05/05/21 01:21 Dose: 0 mls/hr Documented by: [id number] Admin: 05/05/21 00:05 Dose: 999 mls/hr Documented by: [id number] Acetaminophen (Ofirmev) 1,000 mg in 100 mls @ 400 mls/hr IV NOW STA Stop: 05/05/21 00:49 Last Infusion: 05/05/21 01:22 Dose: 0 mls/hr Documented by: [id number] Admin: 05/05/21 01:07 Dose: 400 mls/hr Documented by: [id number] Ioversol (Optiray 320 125ml) 120 ml IV ONCE ONE Stop: 05/04/21 23:55 Last Admin: 05/04/21 23:55 Dose: 120 ml Documented by: [id number] Metoclopramide HCl (Metoclopramide Hcl Inj 5 Mg/Ml 2 Ml Vial) 10 mg IV NOW STA Stop: 05/05/21 01:29 Last Admin: 05/05/21 01:38 Dose: 10 mg Documented by: [id number] Medical Decision Making Medical Records Attestation: I reviewed the patient's medical records. Home Medications Current Medication List: was personally reviewed by me Laboratory Data Attestation: I reviewed the patient's lab results. Result diagrams: 05/04/21 23:50 05/04/21 23:50 Lab Results 05/04/21 05/04/21 05/04/21 Range/Units 23:50 23:50 23:50 WBC 8.67 (4.8-10.8) K/uL RBC 5.19 (4.2-5.4) M/uL Hgb 10.9 L (12.0-16.0) g/dL Hct 36.2 L (37-47) % MCV 69.7 L (80-100) fL MCH 21.0 L (25-34) pg MCHC 30.1 L (32-36) g/dL RDW Std Deviation 65.2 H (36.4-46.3) fL RDW Coeff of Ashley 25.7 H (11.5-14.5) % Plt Count 357 (130-400) K/uL MPV 9.3 (7.4-10.4) fL Immature Gran % (Auto) 0.2 % Neut % (Auto) 75.9 % Lymph % (Auto) 16.3 % Summers % (Auto) 5.9 % Eos % (Auto) 1.5 % Baso % (Auto) 0.2 % Neut # (Auto) 6.58 H (1.4-6.5) K/uL Lymph # (Auto) 1.41 (1.2-3.4) K/uL Summers # (Auto) 0.51 (0.11-0.59) K/uL Eos # (Auto) 0.13 (0-0.5) K/uL Baso # (Auto) 0.02 (0-0.2) K/uL Immature Gran # (Auto) 0.02 (0.00-0.02) K/uL Polychromasia 1+ Tear Drop Cells 1+ PT 10.6 (9.0-12.0) Seconds INR 1.0 (0.9-1.1) APTT 28.0 (21.0-31.0) Seconds PTT Ratio 1.1 Sodium (136-145) mmol/L Potassium (3.5-5.1) mmol/L Chloride (98-107) mmol/L Carbon Dioxide (21-32) mmol/L Anion Gap (3-11) BUN (7-18) mg/dl Creatinine (0.6-1.2) mg/dl Est Cr Clr Drug Dosing ml/min Est GFR ( Amer) ml/min Est GFR (Non-Af Amer) ml/min BUN/Creatinine Ratio (10-20) Glucose (70-99) mg/dl Calcium (8.5-10.1) mg/dl Magnesium (1.8-2.4) mg/dl Total Bilirubin (0.2-1) mg/dl AST (15-37) U/L ALT (12-78) U/L Alkaline Phosphatase (45-117) U/L Troponin I (0-0.045) ng/ml Total Protein (6.4-8.2) gm/dl Albumin (3.4-5.0) gm/dl Globulin (2.5-4.0) gm/dl Albumin/Globulin Ratio (0.9-2) HCG, Quant mIU/ml Blood Type A Positive Antibody Screen NEGATIVE 05/04/21 05/04/21 Range/Units 23:50 23:50 WBC (4.8-10.8) K/uL RBC (4.2-5.4) M/uL Hgb (12.0-16.0) g/dL Hct (37-47) % MCV (80-100) fL MCH (25-34) pg MCHC (32-36) g/dL RDW Std Deviation (36.4-46.3) fL RDW Coeff of Ashley (11.5-14.5) % Plt Count (130-400) K/uL MPV (7.4-10.4) fL Immature Gran % (Auto) % Neut % (Auto) % Lymph % (Auto) % Summers % (Auto) % Eos % (Auto) % Baso % (Auto) % Neut # (Auto) (1.4-6.5) K/uL Lymph # (Auto) (1.2-3.4) K/uL Summers # (Auto) (0.11-0.59) K/uL Eos # (Auto) (0-0.5) K/uL Baso # (Auto) (0-0.2) K/uL Immature Gran # (Auto) (0.00-0.02) K/uL Polychromasia Tear Drop Cells PT (9.0-12.0) Seconds INR (0.9-1.1) APTT (21.0-31.0) Seconds PTT Ratio Sodium 140 (136-145) mmol/L Potassium 3.6 (3.5-5.1) mmol/L Chloride 109 H (98-107) mmol/L Carbon Dioxide 25 (21-32) mmol/L Anion Gap 7.0 (3-11) BUN 9 (7-18) mg/dl Creatinine 0.76 (0.6-1.2) mg/dl Est Cr Clr Drug Dosing 133.0 ml/min Est GFR ( Amer) 125.5 ml/min Est GFR (Non-Af Amer) 108.3 ml/min BUN/Creatinine Ratio 11.7 (10-20) Glucose 84 (70-99) mg/dl Calcium 9.1 (8.5-10.1) mg/dl Magnesium 2.3 (1.8-2.4) mg/dl Total Bilirubin 0.4 (0.2-1) mg/dl AST 7 L (15-37) U/L ALT 15 (12-78) U/L Alkaline Phosphatase 95 (45-117) U/L Troponin I < 0.015 (0-0.045) ng/ml Total Protein 7.5 (6.4-8.2) gm/dl Albumin 3.7 (3.4-5.0) gm/dl Globulin 3.8 (2.5-4.0) gm/dl Albumin/Globulin Ratio 1.0 (0.9-2) HCG, Quant < 1 mIU/ml Blood Type Antibody Screen Imaging Data Attestation: I personally reviewed and interpreted this imaging study as follows: Radiologist's Impression: Head CT 05/04/21 23:[address] OF THE BRAIN; CT ANGIOGRAM OF THE BRAIN; CT ANGIOGRAM OF THE NECK CLINICAL HISTORY: Headache. Left-sided numbness. Slurred speech. Stroke like symptoms. COMPARISON STUDY: No priors. TECHNIQUE: Unenhanced axial CT scan of the brain is performed. Subsequently, following the IV administration of 120 of Optiray 320, CT angiogram of the head and neck was performed from the aortic arch to the vertex. Images are reviewed in the axial, sagittal, and coronal planes. 3-D MIPS images are created and assessed. IV contrast was administered without complication. All measurements were calculated based on NASCET criteria. A dose lowering technique was utilized adhering to the principles of ALARA. CT DOSE: 1045.33 mGy.cm FINDINGS: Brain parenchyma: The brain parenchyma is normal in appearance. There is no hemorrhage, mass effect, or evidence of acute territorial ischemia by CT criteri a. There is no evidence of enhancing mass lesion on the angiogram phase images. The ventricles, sulci, and cisterns are normal in configuration. Engle-white matter differentiation is preserved. No extra-axial fluid collection is seen. Megacisterna magna is incidentally noted. Thoracic aorta: Visualized portions of the thoracic aorta are normal in caliber. The aortic arch demonstrates bovine variant anatomy. Right carotid arterial system: The right common carotid artery is widely patent, as are the right internal and external carotid arteries. Left carotid arterial system: The left common carotid artery is widely patent, as are the left internal and external carotid arteries. Vertebral arteries: The vertebral arteries are widely patent and codominant. Subclavian arteries: Widely patent bilaterally. Intracranial vasculature: The [place] is developmentally complete. The internal carotid arteries are patent at the skull base, as are the anterior and middle cerebral arteries bilaterally. The vertebrobasilar system and posterior cerebral arteries are widely patent. The vertebral arteries are codominant. There is no aneurysm, high-grade stenosis, or focal vessel cut off seen throughout the intracranial circulation. Jugular veins: Patent bilaterally. Dural sinuses: Patent. Lung apices: Partially visualized upper lobe lung parenchyma appears clear. Soft tissues: The visualized pharyngeal soft tissues are normal in appearance noting angiographic phase technique. The oropharyngeal airway appears widely patent. The salivary and thyroid glands are normal in appearance. No cervical lymphadenopathy is seen. Skeletal structures: The calvarium appears intact. The cervical spine is within normal limits. Orbits: The bony orbits are intact. Orbital contents are normal as visualized. Sinuses and mastoids: The paranasal sinuses are clear. The mastoid air cells are well pneumatized. IMPRESSION: 1. There is no hemorrhage, mass effect, or evidence of acute territorial ischemia by CT criteria. 2. Unremarkable CT angiogram of the brain. 3. Unremarkable CT angiogram of the neck. ACT 112: Negative or not required by law. Electronically signed by: Darrius Lucia M.D. 05/05/2021 1:11 AM Head CTA 05/04/21 23:[address] OF THE BRAIN; CT ANGIOGRAM OF THE BRAIN; CT ANGIOGRAM OF THE NECK CLINICAL HISTORY: Headache. Left-sided numbness. Slurred speech. Stroke like symptoms. COMPARISON STUDY: No priors. TECHNIQUE: Unenhanced axial CT scan of the brain is performed. Subsequently, following the IV administration of 120 of Optiray 320, CT angiogram of the head and neck was performed from the aortic arch to the vertex. Images are reviewed in the axial, sagittal, and coronal planes. 3-D MIPS images are created and assessed. IV contrast was administered without complication. All measurements were calculated based on NASCET criteria. A dose lowering technique was utilize d adhering to the principles of ALARA. CT DOSE: 1045.33 mGy.cm FINDINGS: Brain parenchyma: The brain parenchyma is normal in appearance. There is no hemorrhage, mass effect, or evidence of acute territorial ischemia by CT criteria. There is no evidence of enhancing mass lesion on the angiogram phase images. The ventricles, sulci, and cisterns are normal in configuration. Engle- white matter differentiation is preserved. No extra-axial fluid collection is seen. Megacisterna magna is incidentally noted. Thoracic aorta: Visualized portions of the thoracic aorta are normal in caliber. The aortic arch demonstrates bovine variant anatomy. Right carotid arterial system: The right common carotid artery is widely patent, as are the right internal and external carotid arteries. Left carotid arterial system: The left common carotid artery is widely patent, as are the left internal and external carotid arteries. Vertebral arteries: The vertebral arteries are widely patent and codominant. Subclavian arteries: Widely patent bilaterally. Intracranial vasculature: The [place] is developmentally complete. The internal carotid arteries are patent at the skull base, as are the anterior and middle cerebral arteries bilaterally. The vertebrobasilar system and posterior cerebral arteries are widely patent. The vertebral arteries are codominant. There is no aneurysm, high-grade stenosis, or focal vessel cut off seen throughout the intracranial circulation. Jugular veins: Patent bilaterally. Dural sinuses: Patent. Lung apices: Partially visualized upper lobe lung parenchyma appears clear. Soft tissues: The visualized pharyngeal soft tissues are normal in appearance noting angiographic phase technique. The oropharyngeal airway appears widely patent. The salivary and thyroid glands are normal in appearance. No cervical lymphadenopathy is seen. Skeletal structures: The calvarium appears intact. The cervical spine is within normal limits. Orbits: The bony orbits are intact. Orbital contents are normal as visualized. Sinuses and mastoids: The paranasal sinuses are clear. The mastoid air cells are well pneumatized. IMPRESSION: 1. There is no hemorrhage, mass effect, or evidence of acute territorial isc hemia by CT criteria. 2. Unremarkable CT angiogram of the brain. 3. Unremarkable CT angiogram of the neck. ACT 112: Negative or not required by law. Electronically signed by: Darrius Lucia M.D. 05/05/2021 1:11 AM Neck CTA 05/04/21 23:[address] OF THE BRAIN; CT ANGIOGRAM OF THE BRAIN; CT ANGIOGRAM OF THE NECK CLINICAL HISTORY: Headache. Left-sided numbness. Slurred speech. Stroke like symptoms. COMPARISON STUDY: No priors. TECHNIQUE: Unenhanced axial CT scan of the brain is performed. Subsequently, following the IV administration of 120 of Optiray 320, CT angiogram of the head and neck was performed from the aortic arch to the vertex. Images are reviewed in the axial, sagittal, and coronal planes. 3-D MIPS images are created and assessed. IV contrast was administered without complication. All measurements were calculated based on NASCET criteria. A dose lowering technique was utilized adhering to the principles of ALARA. CT DOSE: 1045.33 mGy.cm FINDINGS: Brain parenchyma: The brain parenchyma is normal in appearance. There is no hemorrhage, mass effect, or evidence of acute territorial ischemia by CT criteria. There is no evidence of enhancing mass lesion on the angiogram phase images. The ventricles, sulci, and cisterns are normal in configuration. Engle- white matter differentiation is preserved. No extra-axial fluid collection is seen. Megacisterna magna is incidentally noted. Thoracic aorta: Visualized portions of the thoracic aorta are normal in caliber. The aortic arch demonstrates bovine variant anatomy. Right carotid arterial system: The right common carotid artery is widely patent, as are the right internal and external carotid arteries. Left carotid arterial system: The left common carotid artery is widely patent, as are the left internal and external carotid arteries. Vertebral arteries: The vertebral arteries are widely patent and codominant. Subclavian arteries: Widely patent bilaterally. Intracranial vasculature: The [place] is developmentally complete. The internal carotid arteries are patent at the skull base, as are the anterior and middle cerebral arteries bilaterally. The vertebrobasilar system and posterior cerebral arteries are widely patent. The vertebral arteries are codominant. There is no aneurysm, high-grade stenosis, or focal vessel cut off seen throughout the intracranial circulation. Jugular veins: Patent bilaterally. Dural sinuses: Patent. Lung apices: Partially visualized upper lobe lung parenchyma appears clear. Soft tissues: The visualized pharyngeal soft tissues are normal in appearance noting angiographic phase technique. The oropharyngeal airway appears widely p atent. The salivary and thyroid glands are normal in appearance. No cervical lymphadenopathy is seen. Skeletal structures: The calvarium appears intact. The cervical spine is within normal limits. Orbits: The bony orbits are intact. Orbital contents are normal as visualized. Sinuses and mastoids: The paranasal sinuses are clear. The mastoid air cells are well pneumatized. IMPRESSION: 1. There is no hemorrhage, mass effect, or evidence of acute territorial ischemia by CT criteria. 2. Unremarkable CT angiogram of the brain. 3. Unremarkable CT angiogram of the neck. ACT 112: Negative or not required by law. Electronically signed by: Darrius Lucia M.D. 05/05/2021 1:11 AM [facility] Narrative Prior records/ancillary studies reviewed and summarized above. Nursing notes reviewed. Additional history obtained from family. The patient's history was concerning for headache with left arm tingling and difficulty word finding that has improved with heavy vaginal bleeding for the past several months that is getting worse. Differential diagnosis: Etiologies such as metabolic, infection, hypo/hyperglycemia, electrolyte abnormalities, cardiac sources, intracerebral event, toxicologic, neurologic, as well as others were entertained. Physical examination: As above. ER treatment provided: IV Lock An order was placed for continuous cardiac monitoring. The monitor shows a rate of 60-1 20 with a sinus rhythm. IV fluids, Tylenol, Reglan, Benadryl On reassessment the patient felt better. Diagnostics interpretation by me: ECG: Ordered for weakness EKG: Normal sinus, normal intervals, no acute ST-T wave changes. Impression normal sinus rhythm interpreted by myself I think arrhythmia is unlikely. EKG shows normal sinus rhythm with no interval abnormalities such as QT prolongation or WPW. There are no findings to suggest Brugada syndrome. Cardiac monitoring in the emergency department reveals no tachycardic or bradycardic dysrhythmia. Hypertrophic cardiomyopathy was considered but there are no clear historical elements pointing toward this. EKG is not suggestive. The QRS voltage is not extremely large and there are no suggestive Q waves. The labs revealed improved anemia, negative troponin, negative hCG TIA Score: Age > 60:(1) 0 BP >140 >90 (1): 0 Clinical features (unilateral weakness) (2): 2 CF speech disturbance (1): 1 Duration of symptoms 10-60min (1): 0 Duration >60min (2): 2 Diabetes (1): 0 Score @ 2days @ 7days @ 90days 0-3 low 1% 1.2% 3.1% 4-5 mod 4.1% 5.9% 9.8% 6-7 high 8.1% 11.7% 17.8% Total: 5 Imaging studies: As above Consultation: A consultation was placed with the hospitalist. The case was discussed and diagnostics were reviewed. The patient was evaluated in the ER for further treatment. Exam and history seem consistent with headache with TIA symptoms that could be related to migraine variant. Patient was feeling better after the migraine medication. Her symptoms had improved. Patient will be evaluated medicine. She is agreeable. H&H is improved. Imaging was negative. By the evaluation outlined above emergent etiologies such as infection, electrolyte abnormalities, cardiac sources, intracerebral event, toxologic, a bnormalities blood glucose, metabolic, as well as others were deemed relatively unlikely. The pt informed about the findings as listed above. All questions were answered and pleased with the treatment. The chart was completed utilizing Dragon Speech voice recognition software. Grammatical errors, random word insertions, pronoun errors, and incomplete sentences are an occassional consequence of this system due to software limitations, ambient noise, and hardware issues. Any formal questions or concerns about the content, text, or information contained within the body of this dictation should be directly addressed to the physician assistant store manager for clarification. Impression & Plan Transient cerebral ischemia, Headache Discharge Plan Visit Data Chief Complaint: Neuro Symptoms/Deficit Stated Complaint: LEMUS, LEFT SIDED TINGLINESS, SLURRED SPEECH ED Provider: Kirstin Christina ED Midlevel Provider: Tayler Monique Discharge Problem: Transient cerebral ischemia, Headache Patient Disposition: Admitted As Inpatient Condition: Good Forms Stand Alone Forms: My [facility] [employer] Prescriptions Prescriptions: No Action fluticasone propionate [Flonase Allergy Relief] 50 mcg/actuation [place],Suspension 2 spray INTRANASAL DAILY PRN (Reason: Allergy Symptoms) RF: 0 loratadine 10 mg Tablet 10 mg PO DAILY PRN (Reason: Allergy Symptoms) RF: 0 amitriptyline 50 mg Tablet 50 mg PO HS RF: 0 metformin 500 mg Tablet 500 mg BID RF: 0 clonidine HCl 0.1 mg tablet 0.1 mg PO HS RF: 0 buspirone 5 mg tablet 5 mg PO BID RF: 0 dextroamphetamine-amphetamine 20 mg capsule,extended release 24hr 20 mg PO QAM RF: 0 Referrals Referrals: Elisa Dean MD [Primary Care Provider] - Discharge Problem: Transient cerebral ischemia Qualifiers: Transient cerebral ischemia type: unspecified Qualified Code(s): G45.9 - Transient cerebral ischemic attack, unspecified
[2021-05-05 00:41] LABS: Polychromasia 1+; Tear Drop Cells 1+
--- NOTE | 2021-05-05 01:13 | CT Scan Report ---
UNENHANCED CT OF THE BRAIN; CT ANGIOGRAM OF THE BRAIN; CT ANGIOGRAM OF THE NECK CLINICAL HISTORY: Headache. Left-sided numbness. Slurred speech. Stroke like symptoms. COMPARISON STUDY: No priors. TECHNIQUE: Unenhanced axial CT scan of the brain is performed. Subsequently, following the IV adminis tration of 120 of Optiray 320, CT angiogram of the head and neck was performed from the aortic arch t o the vertex. Images are reviewed in the axial, sagittal, and coronal planes. 3-D MIPS images are cre ated and assessed. IV contrast was administered without complication. All measurements were calculate d based on NASCET criteria. A dose lowering technique was utilized adhering to the principles of ALA RA. CT DOSE: 1045.33 mGy.cm FINDINGS: Brain parenchyma: The brain parenchyma is normal in appearance. There is no hemorrhage, mass effect, or evidence of acute territorial ischemia by CT criteria. There is no evidence of enhancing mass lesi on on the angiogram phase images. The ventricles, sulci, and cisterns are normal in configuration. Gr ay-white matter differentiation is preserved. No extra-axial fluid collection is seen. Megacisterna m agna is incidentally noted. Thoracic aorta: Visualized portions of the thoracic aorta are normal in caliber. The aortic arch demo nstrates bovine variant anatomy. Right carotid arterial system: The right common carotid artery is widely patent, as are the right int ernal and external carotid arteries. Left carotid arterial system: The left common carotid artery is widely patent, as are the left international guest coordinator al and external carotid arteries. Vertebral arteries: The vertebral arteries are widely patent and codominant. Subclavian arteries: Widely patent bilaterally. Intracranial vasculature: The [place] of [place] is developmentally complete. The internal carotid garth marline are patent at the skull base, as are the anterior and middle cerebral arteries bilaterally. The vertebrobasilar system and posterior cerebral arteries are widely patent. The vertebral arteries are codominant. There is no aneurysm, high-grade stenosis, or focal vessel cut off seen throughout the in tracranial circulation. Jugular veins: Patent bilaterally. Dural sinuses: Patent. Lung apices: Partially visualized upper lobe lung parenchyma appears clear. Soft tissues: The visualized pharyngeal soft tissues are normal in appearance noting angiographic pha se technique. The oropharyngeal airway appears widely patent. The salivary and thyroid glands are nor mal in appearance. No cervical lymphadenopathy is seen. Skeletal structures: The calvarium appears intact. The cervical spine is within normal limits. Orbits: The bony orbits are intact. Orbital contents are normal as visualized. Sinuses and mastoids: The paranasal sinuses are clear. The mastoid air cells are well pneumatized. IMPRESSION: 1. There is no hemorrhage, mass effect, or evidence of acute territorial ischemia by CT criteria. 2. Unremarkable CT angiogram of the brain. 3. Unremarkable CT angiogram of the neck. ACT 112: Negative or not required by law. Electronically signed by: Darrius Lucia M.D. 05/05/2021 1:11 AM
[2021-05-05] MEDS ORDERED: METOCLOPRAMIDE HCL INJ 5 MG/ML 2 ML VIAL IV STA (01:28)
[2021-05-05] MEDS ORDERED: diphenhydrAMINE 50 MG/ML VIAL IV STA (01:28)
--- NOTE | 2021-05-05 03:47 | History and Physical Report ---
DATE OF ADMISSION: 05/05/2021. CHIEF COMPLAINT: Stroke-like symptoms. HISTORY OF PRESENT ILLNESS: A 26-year-old female with past medical history significant for history of fibroids, iron deficiency anemia, PCOS, prediabetes, hyperinsulinemia, allergic rhinitis, morbid obesity, history of depression, ADHD, who presents with headache and tingliness and some mild weakness in the left upper extremity. 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 In the ER, CT of the head and CTA of the head and neck were unremarkable. The patient received Benadryl, acetaminophen, Reglan in the ER. Headaches is better. The tingliness and weakness in the left upper extremity is better, but still there. Denies any double vision or blurred vision. No earache, no runny nose, no sore throat, no cough, no fever, no chills, no chest pain, no shortness of breath, no nausea, no vomiting, no abdominal pain. Normal bowel and bladder movements. Currently, resting comfortably and hemodynamically stable. The patient was recently in the hospital in March and discharged on 03/27/2021 for severe anemia, iron deficiency, with hemoglobin of 5.4 in the setting of fibroids and irregular periods and she has a history of myomectomy in August 2020 and a combination of control pill at that time. She received 2 units of PRBCs and got discharged and follows with hem/onc and received iron infusions. She is done with the iron infusions. She says that she is on Depo- Provera injections. Hemoglobin is stable at 10.9. She also follows with psychiatry for depression and ADHD. ALLERGIES: No known drug allergies. PAST MEDICAL HISTORY: As mentioned above. PAST SURGICAL HISTORY: Dental surgery, incision of eardrum, adenoidectomy, removal of uterine fibroids. MEDICATIONS: Currently, the patient is on amitriptyline 50 mg p.o. at bedtime, buspirone 5 mg p.o. b.i.d., clonidine 0.4 mg p.o. at bedtime, dextroamphetamine 20 mg p.o. a.m., Flonase 2 sprays intranasal daily p.r.n., loratadine 10 mg p.o. daily p.r.n., metformin 500 mg p.o. b.i.d. FAMILY HISTORY: Significant for sister has asthma, mother has diabetes. SOCIAL HISTORY: Single. Quit smoking in 2013. No alcohol use, no drug use. REVIEW OF SYSTEMS: As per HPI. Rest of the review of systems is negative. PHYSICAL EXAMINATION: GENERAL: The patient is morbidly obese, not in acute distress. VITAL SIGNS: Temperature 36.2, pulse 85, respiratory rate 18, blood pressure 109/66, oxygen 100% on room air. HEENT: Pupils equal, round and reactive to light. Oral mucosa moist. NECK: No neck masses seen. CARDIOVASCULAR: S1 and S2 heard. Regular rate and rhythm. No murmur, no gallop. RESPIRATORY: Normal AP diameter. No accessory muscle use. No wheezing, no crackles. ABDOMEN: Soft, bowel sounds present, nontender, no distention. CENTRAL NERVOUS SYSTEM: Alert and oriented. Speech is clear. No facial droop seen. Power 5/5 in all extremities. Sensation intact. Position sense intact. No pronator drift. Coordination of movements normal. EXTREMITIES: No edema, no erythema. LABORATORY DATA: WBC 8.6, hemoglobin 10.9, hematocrit 36.2, platelets 357. PT 10.6, INR 1, APTT 28. Sodium 140, potassium 3.6, chloride 109, bicarbonate 25, BUN 9, creatinine 0.7, serum glucose 84, calcium 9.1, magnesium 2.3, total bilirubin 0.4, AST 7, ALT 15, alkaline phosphatase 95. Troponin I less than 0.015. HCG qualitative less than 100. SARS-CoV-2 PCR pending. IMAGING DATA: CTA of the head and neck unremarkable, no acute findings. CT of the head, no acute findings. EKG: Normal sinus rhythm with sinus arrhythmia at a rate of 84. No acute ST changes seen. ASSESSMENT AND PLAN: This is a 26-year-old female who presents with headaches and some tingliness and weakness of the left lower extremity. 1. Headache and tingliness of the patient's left lower extremity. Could be a migraine variant. Rule out cerebrovascular accident. Initial workup with a CTA of the head and neck and CT of the head is unremarkable. Will do a full workup with MRI scan and echo, speech and PT, OT evaluation and neuro evaluation in the a.m. Monitor in the med tele.Started on aspirin. 2. History of iron deficiency anemia in the setting of fibroids. History of myomectomy in August 2020. Currently, on Depo shots and received 2 PRBCs, in March, last month, and also received IV Venofer as outpatient. Follow up with hem/onc and family doctor. Hemoglobin is currently 10.9. 3. History of morbid obesity: Needs counseling. 4. History of depression and attention deficit hyperactivity disorder and anxiety: Continue her amitriptyline, buspirone, clonidine, and amphetamine. Follow up with psychiatry. 5. History of polycystic ovary syndrome: On metformin, which will hold for now. 6. History of prediabetes: Follow HbA1c level. Follow the blood sugars. 7. Deep venous thrombosis prophylaxis: Sequential compression devices for now. DISPOSITION: Admit to [facility]. Expect to discharge home and follow up with family doctor. Addendum: Covid test came back positive. Placed on isolation with airborne and covid precautions.Looking at the chart she seems had covid in november of this year. Currently seems asymptomatic. Will closely monitor. Job ID: [id number] [facility]
[2021-05-05] MEDS ORDERED: ASPIRIN 81 MG CHEW PO ONE (04:21)
[2021-05-05] MEDS ORDERED: ONDANSETRON INJ 2 MG/ML 2 ML VIAL IV PRN (04:21)
[2021-05-05] MEDS ORDERED: SODIUM CHLORIDE 0.9% 1000ML 1,000 ML IV SCH (04:21)
[2021-05-05] MEDS ORDERED: FLUTICASONE PROPIONATE NA SPR 16 GM BTL PRN (04:21)
[2021-05-05] MEDS ORDERED: LORATADINE 10 MG TAB PO PRN (04:21)
[2021-05-05] MEDS ORDERED: ACETAMINOPHEN 325 MG TAB PO PRN (04:21)
[2021-05-05] MEDS ORDERED: PHARMACIST DISCHARGE MED REC CONSULT PRN (04:21)
[2021-05-05] MEDS ORDERED: POLYETHYLENE (MIRALAX) 17 GM PACK PO PRN (04:21)
[2021-05-05 07:08] LABS: Basophils # (auto) 0.02 K/uL (0-0.2); Basophils % (auto) 0.2 %; Eosinophils # (auto) 0.19 K/uL (0-0.5); Eosinophils % (auto) 2.1 %; Hematocrit (blood only) 35.6 % (37-47); Hemoglobin 10.5 g/dL (12.0-16.0); Immature Granulocytes # (auto) 0.01 K/uL (0.00-0.02); Immature Granulocytes % (auto) 0.1 %; Lymphocytes # (auto) 1.64 K/uL (1.2-3.4); Lymphocytes % (auto) 18.3 %; Mean Corpuscular Hemoglobin 20.8 pg (25-34); Mean Corpuscular Hgb Conc 29.5 g/dL (32-36); Mean Corpuscular Volume 70.4 fL (80-100); Monocytes # (auto) 0.48 K/uL (0.11-0.59); Monocytes % (auto) 5.4 %; Neutrophils # (auto) 6.62 K/uL (1.4-6.5); Neutrophils % (auto) 73.9 %; Platelet Count 357 K/uL (130-400); RDW Standard Deviation 65.7 fL (36.4-46.3); Red Blood Count 5.06 M/uL (4.2-5.4); White Blood Count 8.96 K/uL (4.8-10.8)
[2021-05-05 07:26] LABS: BUN Creatinine Ratio 14.9 (10-20); Calcium 8.5 mg/dl (8.5-10.1); Creatinine Clr Calc Pharmacy 168.4 ml/min; Est GFR (African American) 145.8 ml/min; Est GFR (Non-African American) 125.8 ml/min; Potassium 3.7 mmol/L (3.5-5.1)
[2021-05-05] MEDS ORDERED: ASPIRIN CHEW 324 MG ONE (07:37)
[2021-05-05 08:25] LABS: Hypochromasia Present; Microcytosis Present
[2021-05-05 08:50] LABS: Estimated Average Glucose 88 mg/dl; Hemoglobin A1C 4.7 % (4.5-5.6)
[2021-05-05] MEDS: AMPHETAMINE ASP/SULF/DEXTRAMPH ER 20 MG CAP PO SCH (08:59)
[2021-05-05] MEDS: busPIRone 5 MG TAB PO SCH ×2 (08:59→20:59)
[2021-05-05] MEDS ORDERED: ASPIRIN 81 MG ECTAB PO SCH (09:00)
[2021-05-05] MEDS ORDERED: GADOBUTROL 30ML VIAL IV ONE (10:15)
--- NOTE | 2021-05-05 10:37 | Magnetic Resonance Report ---
MRI OF THE BRAIN WITHOUT AND WITH IV CONTRAST CLINICAL HISTORY: Stroke like symptoms. Migraine headache. Left arm numbness. COMPARISON STUDY: Head CT and CTA of the head May 05, 2021. TECHNIQUE: Utilizing a 1.5 Lorena magnet and dedicated coil, multiplanar, multiecho imaging of the br ain was performed pre and postcontrast administration. IV administration of [address] was uneventful. FINDINGS: There are no foci of restricted diffusion to suggest acute infarct. No acute intracranial h emorrhage, midline shift or mass effect is present. Brain volume is normal. Ventricular system is nor mal. Incidental note is made of a kathia cisterna magna. There is no intracranial mass or pathologic en hancement. No parenchymal signal abnormality is present. Orbits are unremarkable. There is no evidenc e for sinusitis. There is no mastoid fluid. IMPRESSION: 1. Unremarkable MRI of the brain. 2. Kathia cisterna magna, an anatomic variant. ACT 112: Negative or not required by law. Electronically signed by: Jacoby Quan M.D. 05/05/2021 10:36 AM
--- NOTE | 2021-05-05 11:55 | Consultation Report ---
DATE OF NOTE: 05/05/2021. REASON FOR CONSULTATION: Transient left arm numbness. HISTORY OF PRESENT ILLNESS: The patient is a 26-year-old right-handed female with a history of ADD, depression and anxiety, severe anemia due to menstrual blood loss, polycystic ovary disease, hyperins ulinemia and chronic headaches. She was in her usual state of health at a baseball game and noted a bitemporal modest pressure pain, which was more severe than her typical headache. About an hour into the headache, she developed tingling in her entire left arm and a sense of mental fuzziness with dasha e word-finding difficulty. There was no change in her vision. No scintillating visual phenomenon. No facial droop. No gabbie dysarthria. The left arm may have been mildly weak as well. No symptoms in the left lower extremity. Those neurologic symptoms lasted until approximately 3:00 a.m. and then gradually resolved. The headache resolved as well. She has a history of chronic nonthrobbing heada ches, which have been doing well on amitriptyline. She denies any prior history of neurologic dysfun ction or headache with neurologic symptoms. She had COVID in November, which presented with some headac he, fatigue and fever. Symptoms lasted approximately 15 days. The patient tested positive here, alt suyapa had been asymptomatic other than theoretically this headache and some mental fogginess. She mcgarry s otherwise been well. She has not had any head or neck injury. She does get regular chiropractic m anipulation with her neck being "cracked uncracked." No chest pain, palpitation, shortness of breath , calf swelling or tenderness. She has no history of DVT, PE miscarriage. She has no family history of hypercoagulable state, early heart disease or stroke. None of her medicines were new, although h er dextroamphetamine was recently increased in dose. PAST MEDICAL HISTORY: As above. Recent admission for profound anemia with a hemoglobin of 5, requir ing transfusion and iron infusion. PAST SURGICAL HISTORY: [place] teeth resection, myringotomy tubes, adenoidectomy and removal of uteri ne thyroids REVIEW OF SYSTEMS: The patient still reports heavy menstrual cycles in spite of Depo-Provera. MEDICATIONS: At home, amitriptyline 50, BuSpar, clonidine, dextroamphetamine, Flonase, loratadine, a nd metformin. FAMILY HISTORY: Asthma, diabetes. No migraine. SOCIAL HISTORY: Single, quit smoking in 2013. Does not drink. 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 DATA BASE: MRI of the brain, which I have reviewed with and without contrast is remarkable only for a kathia cisterna magna. CTA of the head and neck were unremarkable as were CAT scan of the head. I lise freedman reviewed those images. The patient's EKG was notable for a sinus rhythm with sinus arrhythmia. White count 8.6, H and H 10.9/36.2, platelet count 357. PT, PTT normal. Chemistry profile, chloride 109. Transaminases normal. LDL 81. Positive COVID. Negative hCG. PHYSICAL EXAMINATION: VITAL SIGNS: BP 127/79, pulse 73, respirations 17, temperature 36.5, O2 sat 100% on room air. GENERAL: Patient is awake and alert. Speech and language are normal and her affect is appropriate. Naming repetitions and 3-step commands are normal. HEENT: Head is normocephalic, atraumatic. There are no carotid bruits. HEART: No heart murmurs. Heart is regular rate and rhythm. EXTREMITIES: No calf swelling or tenderness. Peripheral pulses are intact. NEUROLOGIC: Pupils are equal, round and reactive to light. There is no afferent pupillary defect. Normal dobbs, motility, facial sensation and facial symmetry. Tongue is midline. There is normal b ulk and tone, full strength. No drift. Normal rapid alternating movements. Symmetric to light touch and symmetric reflexes, downgoing toes. Ylabfg-jz-heyi and hplb-wp-dfce are normal and her gait is unremarkable. ASSESSMENT AND PLAN: Complicated migraine, query COVID triggering. Recommend adding riboflavin 400 mg once a day and magnesium 400 mg once a day. If headaches persist, could increase the amitriptylin e to 75 mg at bedtime. Agree with echocardiography, telemetric monitoring. Would recommend a thrombo sis panel. In this setting, I would consider using aspirin because of the presence of COVID; however , the patient has had heavy menses with profound anemia requiring transfusion. I have no objection t o the patient being discharged today from a neurologic perspective. Job ID: [id number]
[2021-05-05 12:06] LABS: Hypochromasia Present
--- NOTE | 2021-05-05 13:25 | Hospitalist Progress Note ---
Date of Service May 05, 2021 Assessment & Plan (1) Transient cerebral ischemia: Plan: Presented with transient left arm numbness Supportive investigations including imaging studies came out to be unremarkable for any acute cerebral ischemia and/or stroke Symptoms resolved as of this morning Appreciate neurology input and recommendation Likely has complex migraine Advised to have riboflavin 400 mg daily and magnesium 400 mg daily on discharge She will continue her outpatient medications for migraine as usual (2) Headache: Plan: History of chronic headache and migraine Has been taking Imitrex regularly to control migraine Riboflavin and magnesium will be added Amitriptyline can be increased to 75 mg once daily (3) PCOS (polycystic ovarian syndrome): Plan: No acute symptoms (4) COVID-19 virus infection: Plan: History of COVID-19 in January and did not require any treatment In March Covid test was negative before a minor surgical procedure Covid test has been positive on admission this time without any symptoms We will observe her overnight likely discharge tomorrow (5) Iron deficiency: Plan: Has been getting iron supplement as an outpatient Plan: Advised to ambulate in the room Likely discharge tomorrow Admission and Anticipated Discharge Date Admission Date: May 05, 2021 Subjective 05/05/2021 The patient was seen and examined in telemetry unit and in the Covid room She was admitted with transient left arm numbness And was noted to have COVID-19 positive without other symptoms She has been feeling much better this morning without any neurological or respiratory symptoms Review of Systems Review of Systems: All systems reviewed and are unremarkable except as noted below Neurologic: Alert, awake and oriented x3. No focal sensory and motor deficit appreciated Physical Exam Physical Exam: Lying in bed comfortably Constitutional: well developed, well nourished and + obese; not ill appearing Eyes: PERRL, conjunctivae normal, anicteric sclerae ENMT: external ear and nose normal, oropharynx normal Neck: trachea midline, no thyromegaly Respiratory: normal respiratory effort, lungs clear to auscultation Cardiovascular: Rate/Rhythm: regular rate and regular rhythm; not tachycardic Heart Sounds: normal S1 and normal S2; no murmur Gastrointestinal (Abdomen): normal bowel sounds, soft, nontender, no hepatosplenomegaly Neurologic: PERRL, EOMI, accommodation nl, no face palsy, no dysarthria Lymphatic: no cervical or axillary lymphadenopathy Results & Data Results & Data ([facility]) Vital Signs (Past 12 Hours) Vital Signs Temp Pulse Pulse Resp BP BP Pulse Ox 05/05/21 11:38 36.4 C L 67 17 122/76 100 05/05/21 11:18 36.6 C 68 18 116/68 99 05/05/21 08:21 73 05/05/21 07:36 36.5 C 62 17 127/79 100 05/05/21 04:21 36.9 C 72 16 134/89 97 05/05/21 04:04 76 16 101/64 100 05/05/21 04:00 80 18 101/64 100 05/05/21 03:30 77 21 112/73 100 05/05/21 03:01 85 16 100 05/05/21 02:30 67 15 115/61 100 05/05/21 02:00 101 H 15 109/87 100 05/05/21 01:30 85 18 109/63 100 Pulse Ox 05/05/21 11:38 05/05/21 11:18 05/05/21 08:21 05/05/21 07:36 05/05/21 04:21 97 05/05/21 04:04 05/05/21 04:00 05/05/21 03:30 05/05/21 03:01 05/05/21 02:30 05/05/21 02:00 05/05/21 01:30 Laboratory Results Short CBC 05/04/21 05/05/21 Range/Units 23:50 06:08 WBC 8.67 8.96 (4.8-10.8) K/uL Hgb 10.9 L 10.5 L (12.0-16.0) g/dL Hct 36.2 L 35.6 L (37-47) % Plt Count 357 357 (130-400) K/uL BMP 05/04/21 05/05/21 23:50 06:08 Sodium 140 140 Potassium 3.6 3.7 Chloride 109 H 112 H Carbon Dioxide 25 19 L BUN 9 9 Creatinine 0.76 0.60 Glucose 84 80 Calcium 9.1 8.5 Cardiac Enzymes 05/04/21 Range/Units 23:50 Troponin I < 0.015 (0-0.045) ng/ml Liver Function 05/04/21 Range/Units 23:50 Total Bilirubin 0.4 (0.2-1) mg/dl AST 7 L (15-37) U/L ALT 15 (12-78) U/L Alkaline Phosphatase 95 (45-117) U/L Albumin 3.7 (3.4-5.0) gm/dl Medications Administered Current Inpatient Medications Acetaminophen (Acetaminophen 325 Mg Tab) 650 mg PO Q4H PRN PRN Reason: Pain or Fever Stop: 06/04/21 04:20 Amitriptyline HCl (Amitriptyline Hcl 50 Mg Tab) 50 mg PO HS [facility] Stop: 06/04/21 20:59 Amphetamine/Dextroamphetamine (Amphetamine Asp/Sulf/Dextramph Er 20 Mg Cap) 20 mg PO QAM [facility] Stop: 05/19/21 08:59 Last Admin: 05/05/21 08:59 Dose: 20 mg Documented by: Aspirin (Aspirin 81 Mg Ectab) 81 mg PO QAM [facility] Stop: 06/05/21 08:59 Buspirone HCl (Buspirone 5 Mg Tab) 5 mg PO BID [facility] Stop: 06/04/21 08:59 Last Admin: 05/05/21 08:59 Dose: 5 mg Documented by: Clonidine HCl (Clonidine Hcl 0.1 Mg Tab) 0.1 mg PO [facility] Stop: 06/04/21 20:59 Fluticasone Propionate (Fluticasone Propionate Na Spr 16 Gm Btl) 2 sprays NA DAILY PRN PRN Reason: Allergy Symptoms Stop: 06/04/21 04:20 Sodium Chloride (Nss 1000ml) 1,000 mls @ 100 mls/hr IV .Q10H SUKHDEV Stop: 05/05/21 14:20 Last Infusion: 05/05/21 11:20 Dose: 100 mls/hr Documented by: Loratadine (Loratadine 10 Mg Tab) 10 mg PO DAILY PRN PRN Reason: Allergy Symptoms Stop: 06/04/21 04:20 Magnesium Oxide (Magnesium Oxide 400 Mg Tab) 400 mg PO QAM [facility] Stop: 06/04/21 13:29 Miscellaneous Information (Pharmacist Discharge Med Rec Consult) 1 ea N/A UD PRN PRN Reason: Consult Stop: 06/04/21 04:20 Ondansetron HCl (Ondansetron Inj 2 Mg/Ml 2 Ml Vial) 4 mg IV Q6H PRN PRN Reason: Nausea Stop: 06/04/21 04:20 Polyethylene Glycol (Polyethylene (Miralax) 17 Gm Pack) 17 gm PO DAILY PRN PRN Reason: Constipation Stop: 06/04/21 04:20 (1) Transient cerebral ischemia Transient cerebral ischemia type: unspecified Qualified Code(s): G45.9 - Transient cerebral ischemic attack, unspecified
[2021-05-05] MEDS: MAGNESIUM OXIDE 400 MG TAB PO SCH (14:02)
[2021-05-05] MEDS ORDERED: cloNIDine HCL 0.1 MG TAB PO SCH (21:00)
[2021-05-05] MEDS ORDERED: AMITRIPTYLINE HCL 50 MG TAB PO SCH (21:00)
[2021-05-06 07:01] LABS: Hematocrit (blood only) 35.6 % (37-47); Hemoglobin 10.3 g/dL (12.0-16.0); Mean Corpuscular Hemoglobin 20.7 pg (25-34); Mean Corpuscular Hgb Conc 28.9 g/dL (32-36); Mean Corpuscular Volume 71.6 fL (80-100); Platelet Count 316 K/uL (130-400); RDW Coefficient of Variation 25.2 % (11.5-14.5); RDW Standard Deviation 65.2 fL (36.4-46.3); Red Blood Count 4.97 M/uL (4.2-5.4); White Blood Count 7.15 K/uL (4.8-10.8)
[2021-05-06 07:05] LABS: Basophils # (auto) 0.03 K/uL (0-0.2); Basophils % (auto) 0.4 %; Eosinophils # (auto) 0.27 K/uL (0-0.5); Eosinophils % (auto) 3.8 %; Hypochromasia Present; Immature Granulocytes # (auto) 0.01 K/uL (0.00-0.02); Immature Granulocytes % (auto) 0.1 %; Lymphocytes # (auto) 1.73 K/uL (1.2-3.4); Lymphocytes % (auto) 24.2 %; Microcytosis Present; Monocytes # (auto) 0.43 K/uL (0.11-0.59); Neutrophils # (auto) 4.68 K/uL (1.4-6.5); Neutrophils % (auto) 65.5 %
[2021-05-06 07:10] LABS: BUN Creatinine Ratio 13.8 (10-20); Calcium 8.8 mg/dl (8.5-10.1); Creatinine Clr Calc Pharmacy 166.2 ml/min; Est GFR (African American) 145.8 ml/min; Est GFR (Non-African American) 125.8 ml/min; Potassium 4.1 mmol/L (3.5-5.1)
[2021-05-06] MEDS: busPIRone 5 MG TAB PO SCH (08:12)
[2021-05-06] MEDS: MAGNESIUM OXIDE 400 MG TAB PO SCH (08:12)
[2021-05-06] MEDS: AMPHETAMINE ASP/SULF/DEXTRAMPH ER 20 MG CAP PO SCH (08:12)
[2021-05-06] MEDS ORDERED: ASPIRIN 81 MG ECTAB PO SCH (09:00)
--- NOTE | 2021-05-06 13:16 | Hospitalist Progress Note ---
Date of Service May 06, 2021 Assessment & Plan (1) Transient cerebral ischemia: Plan: Presented with transient left arm numbness Supportive investigations including imaging studies came out to be unremarkable for any acute cerebral ischemia and/or stroke Symptoms resolved as of this morning Appreciate neurology input and recommendation Likely has complex migraine Advised to have riboflavin 400 mg daily and magnesium 400 mg daily on discharge She will continue her outpatient medications for migraine as usual No TIA and no stroke No more recurrence of the symptoms and the migraine is well controlled Will be discharged home this afternoon Neurologist recommended to have a hypercoagulable work-up as an outpatient (2) Headache: Plan: History of chronic headache and migraine Has been taking Imitrex regularly to control migraine Riboflavin and magnesium will be added Amitriptyline can be increased to 75 mg once daily if the attack of migraine becomes frequent Her headache is well controlled (3) PCOS (polycystic ovarian syndrome): Plan: No acute symptoms (4) COVID-19 virus infection: Plan: History of COVID-19 in January and did not require any treatment In March Covid test was negative before a minor surgical procedure Covid test has been positive on admission this time without any symptoms He remains totally asymptomatic of Covid You are required to have 8 more days of home isolation as per recommendation (5) Iron deficiency: Plan: Has been getting iron supplement as an outpatient Plan: Advised to ambulate in the room Discharge home this afternoon Admission and Anticipated Discharge Date Admission Date: May 05, 2021 Subjective 05/05/2021 The patient was seen and examined in telemetry unit and in the Covid room She was admitted with transient left arm numbness And was noted to have COVID-19 positive without other symptoms She has been feeling much better this morning without any neurological or respiratory symptoms 05/06/2021 The patient was seen and examined in medical telemetry unit She remains stable and does not have any more left upper extremity numbness or headache or any neurological symptoms Denies any shortness of breath and has been ambulating in the room without any difficulties She wants to go home today Review of Systems Review of Systems: All systems reviewed and are unremarkable except as noted below Neurologic: Alert, awake and oriented x3. No focal sensory and motor deficit appreciated Physical Exam Physical Exam: Lying in bed comfortably Constitutional: well developed, well nourished and + obese; not ill appearing Eyes: PERRL, conjunctivae normal, anicteric sclerae ENMT: external ear and nose normal, oropharynx normal Neck: trachea midline, no thyromegaly Respiratory: normal respiratory effort, lungs clear to auscultation Cardiovascular: Rate/Rhythm: regular rate and regular rhythm; not tachycardic Heart Sounds: normal S1 and normal S2; no murmur Gastrointestinal (Abdomen): normal bowel sounds, soft, nontender, no hepatosplenomegaly Musculoskeletal: No acute arthritis in any joint Neurologic: PERRL, EOMI, accommodation nl, no face palsy, no dysarthria Lymphatic: no cervical or axillary lymphadenopathy Results & Data Results & Data ([facility]) Vital Signs (Past 12 Hours) Vital Signs Temp Pulse Pulse Resp BP Pulse Ox 05/06/21 11:47 36.9 C 80 20 148/95 H 99 05/06/21 08:00 60 05/06/21 03:52 36.5 C 81 17 104/82 100 Laboratory Results Short CBC 05/06/21 Range/Units 06:12 WBC 7.15 (4.8-10.8) K/uL Hgb 10.3 L (12.0-16.0) g/dL Hct 35.6 L (37-47) % Plt Count 316 (130-400) K/uL BMP 05/06/21 06:12 Sodium 140 Potassium 4.1 Chloride 111 H Carbon Dioxide 26 BUN 8 Creatinine 0.60 Glucose 81 Calcium 8.8 Medications Administered Current Inpatient Medications Acetaminophen (Acetaminophen 325 Mg Tab) 650 mg PO Q4H PRN PRN Reason: Pain or Fever Stop: 06/04/21 04:20 Amitriptyline HCl (Amitriptyline Hcl 50 Mg Tab) 50 mg PO [facility] Stop: 06/04/21 20:59 Last Admin: 05/05/21 20:58 Dose: 50 mg Documented by: Amphetamine/Dextroamphetamine (Amphetamine Asp/Sulf/Dextramph Er 20 Mg Cap) 20 mg PO QAM [facility] Stop: 05/19/21 08:59 Last Admin: 05/06/21 08:12 Dose: 20 mg Documented by: Aspirin (Aspirin 81 Mg Ectab) 81 mg PO QAM [facility] Stop: 06/05/21 08:59 Last Admin: 05/06/21 08:12 Dose: 81 mg Documented by: Buspirone HCl (Buspirone 5 Mg Tab) 5 mg PO BID [facility] Stop: 06/04/21 08:59 Last Admin: 05/06/21 08:12 Dose: 5 mg Documented by: Clonidine HCl (Clonidine Hcl 0.1 Mg Tab) 0.1 mg PO HS [facility] Stop: 06/04/21 20:59 Last Admin: 05/05/21 20:59 Dose: 0.1 mg Documented by: Fluticasone Propionate (Fluticasone Propionate Na Spr 16 Gm Btl) 2 sprays NA DAILY PRN PRN Reason: Allergy Symptoms Stop: 06/04/21 04:20 Loratadine (Loratadine 10 Mg Tab) 10 mg PO DAILY PRN PRN Reason: Allergy Symptoms Stop: 06/04/21 04:20 Magnesium Oxide (Magnesium Oxide 400 Mg Tab) [address] [facility] Stop: 06/04/21 13:29 Last Admin: 05/06/21 08:12 Dose: 400 mg Documented by: Miscellaneous Information (Pharmacist Discharge Med Rec Consult) 1 ea N/A UD PRN PRN Reason: Consult Stop: 06/04/21 04:20 Ondansetron HCl (Ondansetron Inj 2 Mg/Ml 2 Ml Vial) 4 mg IV Q6H PRN PRN Reason: Nausea Stop: 06/04/21 04:20 Polyethylene Glycol (Polyethylene (Miralax) 17 Gm Pack) 17 gm PO DAILY PRN PRN Reason: Constipation Stop: 06/04/21 04:20 (1) Transient cerebral ischemia Transient cerebral ischemia type: unspecified Qualified Code(s): G45.9 - Transient cerebral ischemic attack, unspecified
--- NOTE | 2021-05-06 18:34 | Discharge Summary ---
Date of Service May 06, 2021 Admission HPI Per Admitting Provider DICTATED BY: Aleksandr Chaidez MD DATE OF ADMISSION: 05/05/2021. CHIEF COMPLAINT: Stroke-like symptoms. HISTORY OF PRESENT ILLNESS: A 26-year-old female with past medical history significant for history of fibroids, iron deficiency anemia, PCOS, prediabetes, hyperinsulinemia, allergic rhinitis, morbid obesity, history of depression, ADHD, who presents with headache and tingliness and some mild weakness in the left upper extremity. 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 In the ER, CT of the head and CTA of the head and neck were unremarkable. The patient received Benadryl, acetaminophen, Reglan in the ER. Headaches is better. The tingliness and weakness in the left upper extremity is better, but still there. Denies any double vision or blurred vision. No earache, no runny nose, no sore throat, no cough, no fever, no chills, no chest pain, no shortness of breath, no nausea, no vomiting, no abdominal pain. Normal bowel and bladder movements. Currently, resting comfortably and hemodynamically stable. The patient was recently in the hospital in March and discharged on 03/27/2021 for severe anemia, iron deficiency, with hemoglobin of 5.4 in the setting of fibroids and irregular periods and she has a history of myomectomy in August 2020 and a combination of control pill at that time. She received 2 units of PRBCs and got discharged and follows with hem/onc and received iron infusions. She is done with the iron infusions. She says that she is on Depo- Provera injections. Hemoglobin is stable at 10.9. She also follows with psychiatry for depression and ADHD. Admission Exam Per Admitting Provider GENERAL: The patient is morbidly obese, not in acute distress. VITAL SIGNS: Temperature 36.2, pulse 85, respiratory rate 18, blood pressure 109/66, oxygen 100% on room air. HEENT: Pupils equal, round and reactive to light. Oral mucosa moist. NECK: No neck masses seen. CARDIOVASCULAR: S1 and S2 heard. Regular rate and rhythm. No murmur, no gallop. RESPIRATORY: Normal AP diameter. No accessory muscle use. No wheezing, no crackles. ABDOMEN: Soft, bowel sounds present, nontender, no distention. CENTRAL NERVOUS SYSTEM: Alert and oriented. Speech is clear. No facial droop seen. Power 5/5 in all extremities. Sensation intact. Position sense intact. No pronator drift. Coordination of movements normal. EXTREMITIES: No edema, no erythema. Principal Diagnosis Transient left arm numbness, secondary to complicated migraine, COVID-19 virus infection without pneumonia, polycystic ovary syndrome Discharge Exam Constitutional well developed, well nourished and + obese; not ill appearing Eyes PERRL, conjunctivae normal, anicteric sclerae ENMT external ear and nose normal, oropharynx normal Neck trachea midline, no thyromegaly Respiratory normal respiratory effort, lungs clear to auscultation Cardiovascular Rate/Rhythm: regular rate and regular rhythm; not tachycardic Heart Sounds: normal S1 and normal S2; no murmur Gastrointestinal (Abdomen) normal bowel sounds, soft, nontender, no hepatosplenomegaly Neurologic PERRL, EOMI, accommodation nl, no face palsy, no dysarthria Lymphatic no cervical or axillary lymphadenopathy Discharge Data Allergies Allergy/AdvReac Type Severity Reaction Status Date / Time nickel Allergy Intermediate Rash Verified 05/05/21 00:45 Consultations 05/05/21 01:28 ED Decision to Admit Stat 05/05/21 08:00 Consult Neurology Routine Ordered Studies 05/04/21 23:40 CT angio head w con Stat CT angio neck with con Stat CT head/brain wo con Stat 05/05/21 04:21 MR brain wo/w con Urgent Hospital Course (1) Transient cerebral ischemia: Presented with transient left arm numbness Supportive investigations including imaging studies came out to be unremarkable for any acute cerebral ischemia and/or stroke Symptoms resolved as of this morning Appreciate neurology input and recommendation Likely has complex migraine Advised to have riboflavin 400 mg daily and magnesium 400 mg daily on discharge She will continue her outpatient medications for migraine as usual No TIA and no stroke No more recurrence of the symptoms and the migraine is well controlled Will be discharged home this afternoon Neurologist recommended to have a hypercoagulable work-up as an outpatient (2) Headache: History of chronic headache and migraine Has been taking Imitrex regularly to control migraine Riboflavin and magnesium will be added Amitriptyline can be increased to 75 mg once daily if the attack of migraine becomes frequent Her headache is well controlled (3) PCOS (polycystic ovarian syndrome): No acute symptoms (4) COVID-19 virus infection: History of COVID-19 in January and did not require any treatment In March Covid test was negative before a minor surgical procedure Covid test has been positive on admission this time without any symptoms He remains totally asymptomatic of Covid You are required to have 8 more days of home isolation as per recommendation (5) Iron deficiency: Has been getting iron supplement as an outpatient Advised to ambulate in the room Discharge home this afternoon Total Time Total Time Spent Total Time Spent (In Minutes): 35 minutes Discharge Plan Discharge Items Patient Disposition: Home - Self-Care Reason For Visit: NEURO SYMPTOMS Discharge Diagnosis: Transient left arm numbness, secondary to complicated migraine, COVID-19 virus infection without pneumonia, polycystic ovary syndrome Condition on Discharge: Good Activity: Resume your previous activity Non-emergency contact: Primary Care Provider Call non-emergency contact if: you have any medication questions and your symptoms worsen Follow-up/Referrals: Elisa Dean MD [Primary Care Provider] - (Your doctor's office will call you with an appointment within 7 days) Diet: Carb Consistent or DM2 and Heart Healthy Addtl Attending Provider Instructions: Please take precautions to avoid falls You can take riboflavin 400 mg once daily and magnesium 400 mg once daily to help your migraine Keep taking the medications for your migraine You need to be isolated for 8 more days as per the guideline below- Home Isolation COVID-19 Instructions The following information about Home Isolation is from the CDC Website: https://www.cdc.gov/coronavirus/2019-ncov/hcp/ufzplnsq-snmxzdw-flbqpl.html Stay home except to get medical care People who are mildly ill with COVID-19 are able to isolate at home during their illness. You should restrict activities outside your home, except for getting medical care. Do not go to work, school, or public areas. Avoid using public transportation, ride-sharing, or taxis. Separate yourself from other people and animals in your home People: As much as possible, you should stay in a specific room and away from other people in your home. Also, you should use a separate bathroom, if available. Animals: You should restrict contact with pets and other animals while you are sick with COVID-19, just like you would around other people. Although there have not been reports of pets or other animals becoming sick with COVID-19, it is still recommended that people sick with COVID-19 limit contact with animals until more information is known about the virus. When possible, have another member of your household care for your animals while you are sick. If you are sick with COVID-19, avoid contact with your pet, including petting, snuggling, being kissed or licked, and sharing food. If you must care for your pet or be around animals while you are sick, wash your hands before and after you interact with pets and wear a face mask. Call ahead before visiting your doctor If you have a medical appointment, call the healthcare provider and tell them that you have or may have COVID-19. This will help the healthcare providers office take steps to keep other people from getting infected or exposed. Wear a face mask You should wear a face mask when you are around other people (e.g., sharing a room or vehicle) or pets and before you enter a healthcare providers office. If you are not able to wear a face mask (for example, because it causes trouble breathing), then people who live with you should not stay in the same room with you, or they should wear a face mask if they enter your room. Cover your coughs and sneezes Cover your mouth and nose with a tissue when you cough or sneeze. Throw used tissues in a lined trash can. Immediately wash your hands with soap and water for at least 20 seconds or, if soap and water are not available, clean your hands with an alcohol-based hand float tender that contains at least 60% alcohol. Clean your hands often Wash your hands often with soap and water for at least 20 seconds, especially after blowing your nose, coughing, or sneezing; going to the bathroom; and before eating or preparing food. If soap and water are not readily available, use an alcohol-based hand float tender with at least 60% alcohol, covering all surfaces of your hands and rubbing them together until they feel dry. Soap and water are the best option if hands are visibly dirty. Avoid touching your eyes, nose, and mouth with unwashed hands. Avoid sharing personal household items You should not share dishes, drinking glasses, cups, eating utensils, towels, or bedding with other people or pets in your home. After using these items, they should be washed thoroughly with soap and water. Clean all high-touch surfaces everyday High touch surfaces include counters, tabletops, doorknobs, bathroom fixtures, toilets, phones, keyboards, tablets, and bedside tables. Also, clean any surfaces that may have blood, stool, or body fluids on them. Use a household cleaning spray or wipe, according to the label instructions. Labels contain instructions for safe and effective use of the cleaning product including precautions you should take when applying the product, such as wearing gloves and making sure you have good ventilation during use of the product. Monitor your symptoms Seek prompt medical attention if your illness is worsening (e.g., difficulty breathing).Beforeseeking care, call your healthcare provider and tell them that you have, or are being evaluated for, COVID-19. Put on a face mask before you enter the facility. These steps will help the healthcare providers office to keep other people in the office or waiting room from getting infected or exposed. Ask your healthcare provider to call the local or state health department. Persons who are placed under active monitoring or facilitated self- monitoring should follow instructions provided by their local health department or occupational health professionals, as appropriate. When working with your local health department check their available hours. If you have a medical emergency and need to call 911, notify the dispatch personnel that you have, or are being evaluated for COVID-19. If possible, put on a face mask before emergency medical services arrive. Discontinuing home isolation Patients with confirmed COVID-19 should remain under home isolation precautions until the risk of secondary transmission to others is thought to be low. The decision to discontinue home isolation precautions should be made on a [id number] basis, in consultation with healthcare providers and state and local health departments. Pending Studies at Discharge: No Stand-Alone Forms: My [employer], Work/School Release, Smoking Cessation Medications and DC Order Prescriptions: New magnesium oxide 400 mg (241.3 mg magnesium) Tablet 400 mg PO QAM Qty: 30 RF: 0 riboflavin (vitamin B2) 400 mg tablet 400 mg PO DAILY Qty: 30 RF: 0 Continued fluticasone propionate [Flonase Allergy Relief] 50 mcg/actuation [place],Suspension 2 spray INTRANASAL DAILY PRN (Reason: Allergy Symptoms) RF: 0 loratadine 10 mg Tablet 10 mg PO DAILY PRN (Reason: Allergy Symptoms) RF: 0 amitriptyline 50 mg Tablet 50 mg PO HS RF: 0 metformin 500 mg Tablet 500 mg BID RF: 0 clonidine HCl 0.1 mg tablet 0.1 mg PO HS RF: 0 buspirone 5 mg tablet 5 mg PO BID RF: 0 dextroamphetamine-amphetamine 20 mg capsule,extended release 24hr 20 mg PO QAM RF: 0 Discharge Orders: Discharge Order (Routine); Ordered 05/06/21 Ordered By: Talat Johnson Admission Data Admit Date/Time: 05/05/21 02:10 Attending Provider: Talat Johnson Admit Provider: Aleksandr Chaidez Primary Care Provider: Elisa Dean Other Providers: Aleksandr Chaidez ; Kami Sánchez ; Mario Neumann ; Kami Hobson ; Joss Thomas Other Interventions: Discharge Summary Assessment (RN) Last Done: 05/06/21 13:44
--- NOTE | 2021-05-07 10:28 | Electrocardiogram Report ---
Test Reason : Blood Pressure : / mmHG Vent. Rate : 084 BPM Atrial Rate : 084 BPM P-R Int : 138 ms QRS Dur : 080 ms QT Int : 378 ms P-R-T Axes : 001 009 010 degrees QTc Int : 446 ms Normal sinus rhythm with sinus arrhythmia Normal ECG When compared with ECG of 02-DEC-2020 00:28, T wave amplitude has increased in Lateral leads Confirmed by Bryan Edge ([id number]) on 05/07/2021 10:27:52 AM Referred By: REFERRED SELF Confirmed By:Bryan Edge
== END 2021-05-06 14:45 | disposition home or self-care (01) ==
LOC: ED 23:19 → INTOOBSV 05-05 02:10 → 2E 05-05 02:10
DX: Z87.891 Personal history of nicotine dependence; E66.01 Morbid (severe) obesity due to excess calories; Z79.84 Long term (current) use of oral hypoglycemic drugs; Z79.899 Other long term (current) drug therapy; E28.2 Polycystic ovarian syndrome; Z86.16 Personal history of COVID-19; E16.1 Other hypoglycemia; Z68.42 Body mass index [BMI] 45.0-49.9, adult; D50.9 Iron deficiency anemia, unspecified; U07.1 COVID-19; G43.109 Migraine with aura, not intractable, without status migrainosus

== ENCOUNTER 2022-10-05 18:31 | Observation (INO) ==
[2022-10-05] MEDS ORDERED: SODIUM CHLORIDE 0.9% 1000ML 2,000 ML IV ONE (18:52)
--- NOTE | 2022-10-05 18:52 | Emergency Department Note ---
Impression & Plan Symptomatic anemia, Abnormal vaginal bleeding, Chest pain, exertional, Shortness of breath ED Provider Note NAME: SERENITY REDDY AGE: 27 SEX: F : 1995 ARRIVES VIA: Walk-In INFORMANT: Patient ED PROVIDER(S): Dc Westbrook DO CHIEF COMPLAINT: chest pain and vaginal bleeding HPI: Patient is a 27-year-old female who presents to the ER for vaginal bleeding. She notes this has been going on since 2018. She has 1 previous surgery for removal of fibroids and [facility] NUR[facility]. Notes that the bleeding recently has gotten worse. It will wax and wane but at its worst she goes through 4 heavy pads in 3 hours. She admits to mild headache. She has shortness of breath and chest pain with any exertion. This includes just minimal walking. She gets this several times a day. Scribes as a tightness in the middle of her chest. No arm or jaw pain. She also admits to intermittent bilateral leg pain. Patient denies diabetes, hypertension, hyperlipidemia, CAD, history of sudden at a young age, and smoking. Patient denies swelling of calves, recent trips, history of immobilization or recent surgery, prior history of DVT, hemoptysis, and history of malignancy. PAST MEDICAL HISTORY:See Below PAST SURGICAL HISTORY:See Below FAMILY HISTORY:See Below SOCIAL HISTORY:See Below HOME MEDICATIONS:See Below ALLERGIES:See Below VITALS:See Below PHYSICAL EXAMINATION: GENERAL: Sitting up in bed, alert, well appearing, well nourished, no distress, non-toxic EYE EXAM: normal conjunctiva. OROPHARYNX: no exudate, no erythema, lips, buccal mucosa, and tongue normal and mucous membranes are moist NECK: supple, no nuchal rigidity, no adenopathy, non-tender LUNGS: Clear to auscultation. Normal chest wall mechanics HEART: no murmurs, S1 normal and S2 normal ABDOMEN: abdomen soft, non-tender, normo-active bowel sounds, no masses, no rebound or guarding. UPPER EXTREMITIES: upper extremities are grossly normal. LOWER EXTREMITIES: No pitting edema. Calves are equal bilateral NEURO EXAM: Normal sensorium, cranial nerves II-XII grossly intact, normal speech, no gross weakness of arms, no gross weakness of legs. MEDICAL DECISION MAKING: Patient is a 27-year-old female who presents ER for exertional chest pain and shortness of breath associated with worsening vaginal bleeding. She was seen here 2 days ago. External records were reviewed. Hemoglobin at that time was 7. IV was established blood work was obtained. Labs show no significant leukocytosis. Hemoglobin is 6.7 which I do favor that is the cause of her exertional chest pain and shortness of breath as well as weakness. INR was unremarkable. She denies any blood thinners. BMP with LFTs bilirubin and lipase was unremarkable. Troponin was negative with symptoms have been present for the past several days. hCG was negative. COVID was negative. Patient was typed and crossed and ordered 2 units PRBCs with a hemoglobin of 6.7 exertional chest pain and shortness of breath. She was discussed with Dr. martinez and admitted for further work-up. Triage Nursing notes reviewed. Limited review of prior medical records performed Vital Signs: reviewed and remarkable for no significant abnormalities Differential diagnosis: Cardiac ischemia, aortic dissection, pulmonary embolism, pneumothorax, pneumonia, pericarditis, myocarditis, esophageal rupture, GERD, cholecystitis, pancreatitis, musculoskeletal, as well as other pathologies. ER treatment provided: See below Diagnostics interpreted by me include EKG and cardiac monitoring as listed below: -Cardiac Monitoring: An order was placed for continuous cardiac monitoring. The monitor shows a rate of 112 with sinus rhythm. -ECG: Sinus tachycardia rate of 108 Normal axis T wave inversion in lead III QTC 450 -Laboratory studies:Interpreted by me as stated above in MDM and shown below. Imaging studies: Xrays: As interpreted by me: Portable AP upright 1 view of the chest unremarkable CTs show: none Consultation(s): Discussed with Dr. Martinez in regards to presentation work-up and treatment. Patient will likely benefit from evaluation from LONG TERM ACUTE CARE REGISTERED NURSE. Procedures:none Critical Care: I have personally spent 31 minutes of critical care time in the direct management of this patient. This includes bedside care, interpretation of diagnostic studies, and testing, discussion with consultants, patient, and family members, and other required patient management activities. This 31 minutes is in excess of all separately billable procedures. Past Med/Surg History Medical History ADHD Will be starting Adderall in near future Anemia secondary to bleeding from fibroids Anxiety Chronic headaches Depression Ovarian cyst PCOS (polycystic ovarian syndrome) Recently started on Metformin Scoliosis Mild Seasonal allergies Stress headaches Surgical History History of adenoidectomy History of myringotomy Levels teeth extracted Family History Mother History of anesthesia reaction difficulty breathing after anesthesia due to asthma> resolved during recovery. 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 Beliefs That Will Affect Care: None Current Living Situation: Alone Feels Safe at Home: Yes Safety Concerns: Feels Safe At This Time Assistive Devices: Glasses Assistive Devices Comment: prescription glasses Allergies Allergies Allergy/AdvReac Type Severity Reaction Status Date / Time nickel Allergy Intermediate Rash Verified 10/05/22 19:16 Home Meds Previous Rx's Medication Instructions Recorded ferrous sulfate 15 mg iron (75 1 ml PO BID #50 mL 10/03/22 mg)/mL oral drops (Pee-In-Rosamaria) Results & Data (ED) Vital Signs Vital Signs - 24 hr 10/05/22 18:34 10/05/22 18:59 Temperature 36.7 C Temperature Source Temporal Artery Scan Pulse Rate 113 H Pulse Rhythm Regular Pulse Strength Normal Respiratory Rate 20 Respiratory Effort / Characteristics Non-Labored Spontaneous Respiratory Depth Normal Respiratory Pattern Regular Blood Pressure 134/78 Blood Pressure Mean 96 Blood Pressure Position Sitting Pulse Oximetry 100 100 Oxygen Delivery Method Room Air Room Air Sepsis Recent Fever Within 48 Hours No Sepsis New/Unexplained Change in Mental Status N/A Sepsis Action Taken by Nursing No Action Required Laboratory Data 10/05/22 19:10 10/05/22 19:10 Lab Results 10/05/22 10/05/22 10/05/22 Range/Units 19:10 19:10 19:10 WBC 10.62 (4.8-10.8) K/ul RBC 3.45 L (3.93-5.22) M/uL Hgb 6.7 L* (12.0-16.0) g/dl Hct 23.0 L (34.1-44.9) % MCV 66.7 L (80.0-100.0) fL MCH 19.4 L (25.0-34.0) pg MCHC 29.1 L (32.0-36.0) g/dL RDW Std Deviation 39.4 (36.4-46.3) fL RDW Coeff of Ashley 16.7 H (11.5-14.5) % Plt Count 350 (130-400) K/uL MPV 10.3 (9.4-12.3) fL Immature Gran % (Auto) 1.4 % Neut % (Auto) 74.1 % Lymph % (Auto) 14.2 % [place] % (Auto) 7.3 % Eos % (Auto) 2.4 % Baso % (Auto) 0.6 % Neut # (Auto) 7.87 H (1.4-6.5) K/uL Lymph # (Auto) 1.51 (1.2-3.4) K/uL [place] # (Auto) 0.77 (0.24-0.82) K/uL Eos # (Auto) 0.26 (0-0.50) K/uL Baso # (Auto) 0.06 (0-0.2) K/uL Immature Gran # (Auto) 0.15 H (0.00-0.02) K/uL Absolute Nucleated RBC 0.15 H (0-0) K/uL Nucleated RBC % (auto) 1.4 % Hypochromasia Present Microcytosis Present Tear Drop Cells 1+ PT (9.0-12.0) Seconds INR (0.9-1.1) Sodium 139 (136-145) mmol/L Potassium 3.8 (3.5-5.1) mmol/L Chloride 106 (98-107) mmol/L Carbon Dioxide 26 (21-32) mmol/L Anion Gap 7 (3-11) BUN 12 (6-23) mg/dl Creatinine 0.62 (0.6-1.2) mg/dl Est Cr Clr Drug Dosing 171.1 ml/min Est GFR ( Amer) 143.2 ml/min Est GFR (Non-Af Amer) 123.6 ml/min BUN/Creatinine Ratio 19.4 (10-20) Glucose 85 (70-99(Fasting)) mg/dl Calcium 9.1 (8.5-10.1) mg/dl Total Bilirubin 0.5 (0.2-1.0) mg/dl AST 10 L (13-39) U/L ALT 12 (7-52) U/L Alkaline Phosphatase 72 (34-104) U/L Troponin I High Sens < 2.3 (0-14) pg/ml Total Protein 6.6 (6.0-8.3) gm/dl Albumin 3.9 (3.4-5.0) gm/dl Globulin 2.7 (2.5-4.0) gm/dl Albumin/Globulin Ratio 1.4 (0.9-2) Lipase 7 L (11-82) U/L HCG, Qual (Negative) SARS-CoV-2, RNA, NAAT (NEGATIVE) Blood Type A Positive Antibody Screen NEGATIVE Crossmatch See Detail 10/05/22 10/05/22 10/05/22 Range/Units 19:10 19:10 19:12 WBC (4.8-10.8) K/ul RBC (3.93-5.22) M/uL Hgb (12.0-16.0) g/dl Hct (34.1-44.9) % MCV (80.0-100.0) fL MCH (25.0-34.0) pg MCHC (32.0-36.0) g/dL RDW Std Deviation (36.4-46.3) fL RDW Coeff of Ashley (11.5-14.5) % Plt Count (130-400) K/uL MPV (9.4-12.3) fL Immature Gran % (Auto) % Neut % (Auto) % Lymph % (Auto) % [place] % (Auto) % Eos % (Auto) % Baso % (Auto) % Neut # (Auto) (1.4-6.5) K/uL Lymph # (Auto) (1.2-3.4) K/uL [place] # (Auto) (0.24-0.82) K/uL Eos # (Auto) (0-0.50) K/uL Baso # (Auto) (0-0.2) K/uL Immature Gran # (Auto) (0.00-0.02) K/uL Absolute Nucleated RBC (0-0) K/uL Nucleated RBC % (auto) % Hypochromasia Microcytosis Tear Drop Cells PT 11.4 (9.0-12.0) Seconds INR 1.1 (0.9-1.1) Sodium (136-145) mmol/L Potassium (3.5-5.1) mmol/L Chloride (98-107) mmol/L Carbon Dioxide (21-32) mmol/L Anion Gap (3-11) BUN (6-23) mg/dl Creatinine (0.6-1.2) mg/dl Est Cr Clr Drug Dosing ml/min Est GFR ( Amer) ml/min Est GFR (Non-Af Amer) ml/min BUN/Creatinine Ratio (10-20) Glucose (70-99(Fasting)) mg/dl Calcium (8.5-10.1) mg/dl Total Bilirubin (0.2-1.0) mg/dl AST (13-39) U/L ALT (7-52) U/L Alkaline Phosphatase (34-104) U/L Troponin I High Sens (0-14) pg/ml Total Protein (6.0-8.3) gm/dl Albumin (3.4-5.0) gm/dl Globulin (2.5-4.0) gm/dl Albumin/Globulin Ratio (0.9-2) Lipase (11-82) U/L HCG, Qual Negative (Negative) SARS-CoV-2, RNA, NAAT NEGATIVE (NEGATIVE) Blood Type Antibody Screen Crossmatch Administered Medications Discontinued Medications Sodium Chloride (Nss 1000ml) 2,000 mls @ 999 mls/hr IV .Q2H1M ONE Stop: 10/05/22 20:52 Last Infusion: 10/05/22 20:46 Dose: 0 mls/hr Documented By: Admin: 10/05/22 19:20 Dose: 999 mls/hr Documented By: JADE Ondansetron HCl (Ondansetron Inj 2 Mg/Ml 2 Ml Vial) 4 mg IV NOW STA Stop: 10/05/22 19:39 Last Admin: 10/05/22 19:41 Dose: 4 mg Documented By: JADE Imaging Data Radiologist's Impression: Chest X-Ray 10/05/22 18:46 XR chest 1V portable CLINICAL HISTORY: Chest pain, nonspecific TECHNIQUE: Single frontal radiograph of the chest was obtained. Comparison: Comparison is made to chest radiograph 12/02/2020 FINDINGS: No lines and tubes are seen. The cardiomediastinal silhouette is normal. Lungs are underinflated but clear. No evidence of pleural effusion or pneumothorax. IMPRESSION: No acute chest disease. ACT 112: Negative or not required by law. Electronically signed by: Henry Flores M.D. 10/05/2022 7:11 PM Discharge Plan Visit Data Chief Complaint: Illness Stated Complaint: DIFFICULTY BREATHING, VOMITING, LOW IRON ED Provider: Dc Westbrook Discharge Problem: Symptomatic anemia, Abnormal vaginal bleeding, Chest pain, exertional, Shortness of breath Patient Disposition: Admitted As Inpatient Discharge Instructions Interventions: ED Discharge Assessment Last Done: 10/05/22 20:57
--- NOTE | 2022-10-05 19:12 | XRay Report ---
XR chest 1V portable CLINICAL HISTORY: Chest pain, nonspecific TECHNIQUE: Single frontal radiograph of the chest was obtained. Comparison: Comparison is made to chest radiograph 12/02/2020 FINDINGS: No lines and tubes are seen. The cardiomediastinal silhouette is normal. Lungs are underinflated but clear. No evidence of pleural effusion or pneumothorax. IMPRESSION: No acute chest disease. ACT 112: Negative or not required by law. Electronically signed by: Henry Flores M.D. 10/05/2022 7:11 PM
[2022-10-05 19:31] LABS: INR 1.1 (0.9-1.1); Prothrombin Time 11.4 Seconds (9.0-12.0)
[2022-10-05 19:32] LABS: Hemoglobin 6.7 g/dl (12.0-16.0); Mean Corpuscular Hemoglobin 19.4 pg (25.0-34.0); Mean Corpuscular Hgb Conc 29.1 g/dL (32.0-36.0); Mean Corpuscular Volume 66.7 fL (80.0-100.0); Mean Platelet Volume 10.3 fL (9.4-12.3); Nucleated RBC # (auto) 0.15 K/uL (0-0); Nucleated RBC % (auto) 1.4 %; Platelet Count 350 K/uL (130-400); RDW Coefficient of Variation 16.7 % (11.5-14.5); RDW Standard Deviation 39.4 fL (36.4-46.3); Red Blood Count 3.45 M/uL (3.93-5.22); White Blood Count 10.62 K/ul (4.8-10.8)
[2022-10-05] MEDS ORDERED: SODIUM CHLORIDE 0.9% 250 ML IV PRN (19:36)
[2022-10-05] MEDS ORDERED: ONDANSETRON INJ 2 MG/ML 2 ML VIAL IV STA (19:38)
[2022-10-05 19:41] LABS: Basophils # (auto) 0.06 K/uL (0-0.2); Basophils % (auto) 0.6 %; Eosinophils # (auto) 0.26 K/uL (0-0.50); Eosinophils % (auto) 2.4 %; Hypochromasia Present; Immature Granulocytes # (auto) 0.15 K/uL (0.00-0.02); Immature Granulocytes % (auto) 1.4 %; Lymphocytes # (auto) 1.51 K/uL (1.2-3.4); Lymphocytes % (auto) 14.2 %; Microcytosis Present; Monocytes # (auto) 0.77 K/uL (0.24-0.82); Monocytes % (auto) 7.3 %; Neutrophils # (auto) 7.87 K/uL (1.4-6.5); Neutrophils % (auto) 74.1 %; Tear Drop Cells 1+
[2022-10-05 19:43] LABS: Pregnancy Test, Serum Negative (Negative)
[2022-10-05 19:48] LABS: Alanine Aminotransferase 12 U/L (7-52); Albumin Globulin Ratio 1.4 (0.9-2); Albumin Level 3.9 gm/dl (3.4-5.0); Alkaline Phosphatase 72 U/L (34-104); Anion Gap 7 (3-11); Aspartate Aminotransferase 10 U/L (13-39); BUN Creatinine Ratio 19.4 (10-20); Bilirubin,Total 0.5 mg/dl (0.2-1.0); Blood Urea Nitrogen 12 mg/dl (6-23); Calcium 9.1 mg/dl (8.5-10.1); Carbon Dioxide 26 mmol/L (21-32); Chloride 106 mmol/L (98-107); Creatinine Clr Calc Pharmacy 171.1 ml/min; Est GFR (African American) 143.2 ml/min; Est GFR (Non-African American) 123.6 ml/min; Globulin 2.7 gm/dl (2.5-4.0); Glucose 85 mg/dl (70-99(Fasting)); Lipase 7 U/L (11-82); Potassium 3.8 mmol/L (3.5-5.1); Sodium 139 mmol/L (136-145); Total Protein 6.6 gm/dl (6.0-8.3)
[2022-10-05 19:51] LABS: Troponin I High Sensitivity < 2.3 pg/ml (0-14)
[2022-10-05] MEDS ORDERED: ACETAMINOPHEN 325 MG TAB PO PRN (21:30)
[2022-10-05] MEDS ORDERED: NITROGLYCERIN SL 0.4 MG/TAB TAB SL PRN (21:30)
--- NOTE | 2022-10-06 00:35 | History and Physical Report ---
DATE OF ADMISSION: 10/05/2022. CHIEF COMPLAINT: Heavy vaginal bleeding, symptomatic anemia. HISTORY OF PRESENT ILLNESS: This is a 27-year-old female with past medical history significant for prediabetes, allergic rhinitis, morbid obesity, uterine leiomyoma, kathia cisterna magna, iron-deficiency anemia due to chronic blood loss, history of single episode of depression, presents with ongoing heavy vaginal bleeding. The patient states it is going on since 2017. She had surgery done in August 2020 for removal of fibroid, but she syas has more fibroids and she does not like removal of them because she does not want to damage her uterus. She is to get iron infusion, but is no longer getting them. She lost her insurance and is no longer following with any doctor for a long time now. This episode of heavy vaginal bleeding started in May. She says she got insurance now. She has appointment with [facility] from [facility] on Friday and she also is trying to get in to see a family doctor with [facility]. Currently not on any meds. She was in the ER on 10/03/2022 with weakness, significant vaginal bleeding and her hemoglobin was found to be 7.3 and she was discharged to follow up with [facility]ICAL [facility] DESIGN[facility] and family doctor. She again comes back today because of weakness in the legs and also she is having exertional dyspnea and chest pain on exertion h and mild dizziness. Denies any headache. No blurred visions, no earache, no runny nose, no sore throat, no cough, no fevers. Appetite is not that great because of nausea. No abdominal pain. Normal bowel and bladder movements. Currently, resting comfortably and hemodynamically stable. PAST MEDICAL HISTORY: As mentioned above. PAST SURGICAL HISTORY: Dental surgery, incision of eardrum, adenoidectomy, removal of fibroid uterus in August 2020. MEDICATIONS: The patient is currently not taking any medications. FAMILY HISTORY: Significant for mother has diabetes, sister has asthma. SOCIAL HISTORY: Quit smoking in 2013. No alcohol, no drug use. REVIEW OF SYSTEMS: As per HPI. Rest of the review of systems is negative. PHYSICAL EXAMINATION: GENERAL: The patient is morbidly obese, not in acute distress. VITAL SIGNS: Temperature 36.7, pulse 113, respiratory rate 20, blood pressure 134/78, oxygen 100% on room air. HEENT: Pupils equal, round and reactive to light. Oral mucosa moist. NECK: No JVD. No neck masses. CARDIOVASCULAR: S1 and S2 heard. Regular rate and rhythm. No murmur, no gallop. RESPIRATORY SYSTEM: Normal AP diameter. No accessory muscle use. No wheezing, no crackles. ABDOMEN: Soft, bowel sounds present, nontender, no distention. CENTRAL NERVOUS SYSTEM: Alert and oriented. Nonfocal. EXTREMITIES: No edema, no erythema. LABORATORY DATA: WBC 10.6, hemoglobin 6.7, hematocrit 23, platelets 350. PT 11.4, INR 1.1. Sodium 139, potassium 3.8, chloride 106, bicarb 26, BUN 12, creatinine 0.6, serum glucose 85, calcium 9.1, total bilirubin 0.5, AST 10, ALT 12, alkaline phosphatase 72. Troponin I high sensitivity less than 2.3, lipase 7, hCG qualitative negative. SARS-CoV-2 rapid test negative. IMAGING DATA: Chest x-ray, no acute disease. EKG: Sinus tachycardia at a rate of 108, no acute ST changes seen. ASSESSMENT AND PLAN: This is a 27-year-old female who presents with symptomatic anemia. 1. Symptomatic anemia, heavy vaginal bleeding, going on since 2018, has fibroids. She had surgery for fibroid in 2020, and she does not want any more surgery because she does not want to damage uterus. She lost insurance and could not follow up with doctor for long time. She also has history of PCOD, has appointment to [facility] DESIGN[facility] coming Friday. ER ordered 2 units of PRBC, which will be given. Follow hemoglobin in a.m. Having shortness of breath and chest pains on exertion possibly from anemia. We will do serial cardiac enzymes and echocardiogram. If any concern, will consult cardiology. Closely monitor in the med tele. 2. Polycystic ovarian disease: Followup with [facility] DES[facility]. 3. Obesity: Needs counseling. 4. Deep venous thrombosis prophylaxis: SCDs for now. DISPOSITION: Admit to [facility]. Expect to discharge home and follow with family doctor. Job ID: [id number] [facility]
[2022-10-06] MEDS ORDERED: ONDANSETRON INJ 2 MG/ML 2 ML VIAL IV PRN (01:00)
[2022-10-06] MEDS ORDERED: LOPERAMIDE HCL 2 MG CAP PO STA (02:31)
[2022-10-06] MEDS ORDERED: FUROSEMIDE INJ 20 MG/2 ML VIAL IV ONE (03:00)
[2022-10-06 06:25] LABS: Basophils # (auto) 0.05 K/uL (0-0.2); Basophils % (auto) 0.4 %; Eosinophils # (auto) 0.24 K/uL (0-0.50); Hematocrit (blood only) 29.8 % (34.1-44.9); Hemoglobin 9.2 g/dl (12.0-16.0); Immature Granulocytes # (auto) 0.16 K/uL (0.00-0.02); Immature Granulocytes % (auto) 1.3 %; Lymphocytes # (auto) 1.94 K/uL (1.2-3.4); Lymphocytes % (auto) 15.8 %; Mean Corpuscular Hemoglobin 21.9 pg (25.0-34.0); Mean Corpuscular Hgb Conc 30.9 g/dL (32.0-36.0); Mean Platelet Volume 10.6 fL (9.4-12.3); Monocytes # (auto) 0.75 K/uL (0.24-0.82); Monocytes % (auto) 6.1 %; Neutrophils # (auto) 9.16 K/uL (1.4-6.5); Neutrophils % (auto) 74.4 %; Nucleated RBC # (auto) 0.15 K/uL (0-0); Nucleated RBC % (auto) 1.2 %; Platelet Count 375 K/uL (130-400); RDW Coefficient of Variation 19.8 % (11.5-14.5); RDW Standard Deviation 49.5 fL (36.4-46.3)
[2022-10-06 07:15] LABS: Calcium 8.5 mg/dl (8.5-10.1); Magnesium 1.8 mg/dl (1.7-2.4); Potassium 3.6 mmol/L (3.5-5.1)
[2022-10-06 07:21] LABS: BUN Creatinine Ratio 14.1 (10-20); Creatinine Clr Calc Pharmacy 166.5 ml/min; Est GFR (African American) 141.7 ml/min; Est GFR (Non-African American) 122.3 ml/min
--- NOTE | 2022-10-06 10:28 | Hospitalist Progress Note ---
Date of Service October 06, 2022 Assessment & Plan (1) Abnormal vaginal bleeding: (2) Anemia: (3) Symptomatic anemia: Plan: This is a 27-year-old female who presents with symptomatic anemia. 1. Symptomatic anemia, heavy vaginal bleeding - going on since 2018, has fibroids. She had surgery for fibroid in 2019, and she does not want any more surgery because she does not want to damage uterus. She lost insurance and could not follow up with doctor for long time. She also has history of PCOD, has appointment to [facility] [employer] coming Friday. ER ordered 2 units of PRBC, which were given. Hgb in ER 6.7, Hgb now 9.2 She was having shortness of breath and chest pains on exertion possibly from anemia. Cardiac enzymes ordered - x3 - negative Echocardiogram obtained - unremarkable. LV is normal in size. LV systolic function is normal. EF 55 to 60%. LV wall motion is normal. RV systolic function is normal. LA size is normal. RA size is normal. There is no pericardial effusion. No significant valvular pathology. Discussed with gynecology, Dr. Whitt, over the phone. Patient can be discharged from the hospital, and will be seen by her on Friday in the office. 2. Polycystic ovarian disease: Followup with [employer]. 3. Obesity: Needs counseling/lifestyle modifications. DVT prophylaxis: SCDs for now. DISPOSITION:plan to [place] home Admission and Anticipated Discharge Date Admission Date: October 05, 2022 Subjective Patient seen follow-up of vaginal bleed, symptomatic anemia Received 2 units of PRBCs Currently laying in bed, in no acute distress, feeling well Denies any chest pain shortness of breath dizziness or palpitation Discussed with gynecology, Dr. Whitt, she is to see the patient and also will see her as outpt on Friday. Review of Systems Review of Systems: All systems reviewed & are unremarkable except as noted in Subjective Physical Exam Physical Exam: GENERAL:morbidly obese F, not in acute distress. HEENT: NC/AT, EOMI, Pupils equal, round and reactive to light. Oral mucosa moist. NECK: No JVD. No neck masses. CARDIOVASCULAR: S1 and S2 heard. Regular rate and rhythm. No murmur, no gallop. RESPIRATORY: Normal AP diameter. No accessory muscle use. No wheezing, no crackles. ABDOMEN: Soft, bowel sounds present, nontender, no distention. NEURO: Alert and oriented. Answering questions appropriately, moves extremities EXTREMITIES: No edema, no erythema. Results & Data Results & Data ([facility]) Vital Signs (Past 12 Hours) Vital Signs Temp Pulse Pulse Resp BP BP BP 10/06/22 07:50 100 H 10/06/22 06:40 36.8 C 99 H 20 100/66 10/06/22 03:31 36.6 C 103 H 18 122/78 10/06/22 02:10 36.7 C 105 H 18 113/76 10/06/22 01:40 36.8 C 99 H 18 138/87 10/06/22 01:24 37.1 C 99 H 18 121/76 10/06/22 01:07 36.8 C 100 H 18 124/85 10/06/22 00:39 36.9 C 102 H 18 131/74 10/06/22 00:41 36.9 C 106 H 18 131/74 10/05/22 23:50 36.7 C 106 H 18 123/79 10/05/22 22:50 36.4 C L 111 H 18 123/84 Pulse Ox O2 Del Method 10/06/22 07:50 10/06/22 06:40 97 Room Air 10/06/22 03:31 97 10/06/22 02:10 96 10/06/22 01:40 98 10/06/22 01:24 98 10/06/22 01:07 97 10/06/22 00:39 97 10/06/22 00:41 97 Room Air 10/05/22 23:50 96 10/05/22 22:50 97 Laboratory Results 10/06/22 10/06/22 10/06/22 Range/Units 05:16 05:16 05:16 WBC 12.30 H (4.8-10.8) K/ul RBC 4.20 (3.93-5.22) M/uL Hgb 9.2 L (12.0-16.0) g/dl Hct 29.8 L (34.1-44.9) % MCV 71.0 L D (80.0-100.0) fL MCH 21.9 L (25.0-34.0) pg MCHC 30.9 L (32.0-36.0) g/dL RDW Std Deviation 49.5 H (36.4-46.3) fL RDW Coeff of [place] 19.8 H (11.5-14.5) % Plt Count 375 (130-400) K/uL MPV 10.6 (9.4-12.3) fL Immature Gran % (Auto) 1.3 % Neut % (Auto) 74.4 % Lymph % (Auto) 15.8 % [place] % (Auto) 6.1 % Eos % (Auto) 2.0 % Baso % (Auto) 0.4 % Neut # (Auto) 9.16 H (1.4-6.5) K/uL Lymph # (Auto) 1.94 (1.2-3.4) K/uL [place] # (Auto) 0.75 (0.24-0.82) K/uL Eos # (Auto) 0.24 (0-0.50) K/uL Baso # (Auto) 0.05 (0-0.2) K/uL Immature Gran # (Auto) 0.16 H (0.00-0.02) K/uL Absolute Nucleated RBC 0.15 H (0-0) K/uL Nucleated RBC % (auto) 1.2 % Hypochromasia Microcytosis Tear Drop Cells PT (9.0-12.0) Seconds INR (0.9-1.1) Sodium 139 (136-145) mmol/L Potassium 3.6 (3.5-5.1) mmol/L Chloride 105 (98-107) mmol/L Carbon Dioxide 27 (21-32) mmol/L Anion Gap 7 (3-11) BUN 9 (6-23) mg/dl Creatinine 0.64 (0.6-1.2) mg/dl Est Cr Clr Drug Dosing 166.5 ml/min Est GFR ( Amer) 141.7 ml/min Est GFR (Non-Af Amer) 122.3 ml/min BUN/Creatinine Ratio 14.1 (10-20) Glucose 112 H (70-99(Fasting)) mg/dl Calcium 8.5 (8.5-10.1) mg/dl Magnesium 1.8 (1.7-2.4) mg/dl Total Bilirubin (0.2-1.0) mg/dl AST (13-39) U/L ALT (7-52) U/L Alkaline Phosphatase (34-104) U/L Troponin I High Sens < 2.3 (0-14) pg/ml Total Protein (6.0-8.3) gm/dl Albumin (3.4-5.0) gm/dl Globulin (2.5-4.0) gm/dl Albumin/Globulin Ratio (0.9-2) Lipase (11-82) U/L HCG, Qual (Negative) SARS-CoV-2, RNA, NAAT (NEGATIVE) Blood Type Antibody Screen Crossmatch 10/05/22 10/05/22 10/05/22 Range/Units 19:12 19:10 19:10 WBC (4.8-10.8) K/ul RBC (3.93-5.22) M/uL Hgb (12.0-16.0) g/dl Hct (34.1-44.9) % MCV (80.0-100.0) fL MCH (25.0-34.0) pg MCHC (32.0-36.0) g/dL RDW Std Deviation (36.4-46.3) fL RDW Coeff of Ashley (11.5-14.5) % Plt Count (130-400) K/uL MPV (9.4-12.3) fL Immature Gran % (Auto) % Neut % (Auto) % Lymph % (Auto) % [place] % (Auto) % Eos % (Auto) % Baso % (Auto) % Neut # (Auto) (1.4-6.5) K/uL Lymph # (Auto) (1.2-3.4) K/uL [place] # (Auto) (0.24-0.82) K/uL Eos # (Auto) (0-0.50) K/uL Baso # (Auto) (0-0.2) K/uL Immature Gran # (Auto) (0.00-0.02) K/uL Absolute Nucleated RBC (0-0) K/uL Nucleated RBC % (auto) % Hypochromasia Microcytosis Tear Drop Cells PT 11.4 (9.0-12.0) Seconds INR 1.1 (0.9-1.1) Sodium (136-145) mmol/L Potassium (3.5-5.1) mmol/L Chloride (98-107) mmol/L Carbon Dioxide (21-32) mmol/L Anion Gap (3-11) BUN (6-23) mg/dl Creatinine (0.6-1.2) mg/dl Est Cr Clr Drug Dosing ml/min Est GFR ( Amer) ml/min Est GFR (Non-Af Amer) ml/min BUN/Creatinine Ratio (10-20) Glucose (70-99(Fasting)) mg/dl Calcium (8.5-10.1) mg/dl Magnesium (1.7-2.4) mg/dl Total Bilirubin (0.2-1.0) mg/dl AST (13-39) U/L ALT (7-52) U/L Alkaline Phosphatase (34-104) U/L Troponin I High Sens (0-14) pg/ml Total Protein (6.0-8.3) gm/dl Albumin (3.4-5.0) gm/dl Globulin (2.5-4.0) gm/dl Albumin/Globulin Ratio (0.9-2) Lipase (11-82) U/L HCG, Qual Negative (Negative) SARS-CoV-2, RNA, NAAT NEGATIVE (NEGATIVE) Blood Type Antibody Screen Crossmatch 10/05/22 10/05/22 10/05/22 Range/Units 19:10 19:10 19:10 WBC 10.62 (4.8-10.8) K/ul RBC 3.45 L (3.93-5.22) M/uL Hgb 6.7 L* (12.0-16.0) g/dl Hct 23.0 L (34.1-44.9) % MCV 66.7 L (80.0-100.0) fL MCH 19.4 L (25.0-34.0) pg MCHC 29.1 L (32.0-36.0) g/dL RDW Std Deviation 39.4 (36.4-46.3) fL RDW Coeff of Ashley 16.7 H (11.5-14.5) % Plt Count 350 (130-400) K/uL MPV 10.3 (9.4-12.3) fL Immature Gran % (Auto) 1.4 % Neut % (Auto) 74.1 % Lymph % (Auto) 14.2 % [place] % (Auto) 7.3 % Eos % (Auto) 2.4 % Baso % (Auto) 0.6 % Neut # (Auto) 7.87 H (1.4-6.5) K/uL Lymph # (Auto) 1.51 (1.2-3.4) K/uL [place] # (Auto) 0.77 (0.24-0.82) K/uL Eos # (Auto) 0.26 (0-0.50) K/uL Baso # (Auto) 0.06 (0-0.2) K/uL Immature Gran # (Auto) 0.15 H (0.00-0.02) K/uL Absolute Nucleated RBC 0.15 H (0-0) K/uL Nucleated RBC % (auto) 1.4 % Hypochromasia Present Microcytosis Present Tear Drop Cells 1+ PT (9.0-12.0) Seconds INR (0.9-1.1) Sodium 139 (136-145) mmol/L Potassium 3.8 (3.5-5.1) mmol/L Chloride 106 (98-107) mmol/L Carbon Dioxide 26 (21-32) mmol/L Anion Gap 7 (3-11) BUN 12 (6-23) mg/dl Creatinine 0.62 (0.6-1.2) mg/dl Est Cr Clr Drug Dosing 171.1 ml/min Est GFR ( Amer) 143.2 ml/min Est GFR (Non-Af Amer) 123.6 ml/min BUN/Creatinine Ratio 19.4 (10-20) Glucose 85 (70-99(Fasting)) mg/dl Calcium 9.1 (8.5-10.1) mg/dl Magnesium (1.7-2.4) mg/dl Total Bilirubin 0.5 (0.2-1.0) mg/dl AST 10 L (13-39) U/L ALT 12 (7-52) U/L Alkaline Phosphatase 72 (34-104) U/L Troponin I High Sens < 2.3 (0-14) pg/ml Total Protein 6.6 (6.0-8.3) gm/dl Albumin 3.9 (3.4-5.0) gm/dl Globulin 2.7 (2.5-4.0) gm/dl Albumin/Globulin Ratio 1.4 (0.9-2) Lipase 7 L (11-82) U/L HCG, Qual (Negative) SARS-CoV-2, RNA, NAAT (NEGATIVE) Blood Type A Positive Antibody Screen NEGATIVE Crossmatch See Detail Medications Administered Current Inpatient Medications Acetaminophen (Acetaminophen 325 Mg Tab) 650 mg PO Q4H PRN PRN Reason: Pain or Fever Stop: 11/04/22 21:29 Nitroglycerin (Nitroglycerin Sl 0.4 Mg/Tab Tab) 0.4 mg SL UD PRN PRN Reason: Chest Pain Stop: 11/04/22 21:29 Ondansetron HCl (Ondansetron Inj 2 Mg/Ml 2 Ml Vial) 4 mg IV Q6H PRN PRN Reason: Nausea Stop: 11/05/22 00:59 (1) Anemia Anemia type: unspecified type Qualified Code(s): D64.9 - Anemia, unspecified
--- NOTE | 2022-10-06 10:49 | Electrocardiogram Report ---
Test Reason : Blood Pressure : / mmHG Vent. Rate : 108 BPM Atrial Rate : 108 BPM P-R Int : 138 ms QRS Dur : 078 ms QT Int : 336 ms P-R-T Axes : -06 008 -02 degrees QTc Int : 450 ms Sinus tachycardia Cannot rule out Anterior infarct (cited on or before 03-OCT-2022)vs lead placement Abnormal ECG When compared with ECG of 03-OCT-2022 15:19, Premature atrial complexes are no longer Present Confirmed by Iron Pink ([id number]) on 10/06/2022 10:49:43 AM Referred By: REFERRED SELF Confirmed By:Iron Pink
--- NOTE | 2022-10-06 11:55 | OB/GYN Consultation ---
Date of Consultation October 06, 2022 Assessment & Plan (1) Abnormal vaginal bleeding: Further plans to be made as outpatient. For now, likely due to combination of fibroids (with distortion of endometrial stripe) and PCOS (oligo-ovulation) plus morbid obesity (excess estrogenic stimulation of endometrium). Management options are several, but limited somewhat by patient's comorbidities (no estrogens should be used if avoidable), and her hesitancy about some of the options (IUD's in particular). Offered immediate start of several progestin treatments to block worsening of bleeding, which patient declines at this time. (2) Anemia: Appropriate managed with 2u pRBC and appropriate rise in Hgb demonstrated. OK for d/c as per hospitalist team, whose care during this admission is noted and appreciated. The cardiopulmonary workup for her symptoms at admission is seen and reassuring. Symptoms have appropriately resolved after anemia was treated. History of Present Illness Reason for Consultation: Vaginal bleeding Attending Physician: Chalino Worthy MD History of Present Illness 27yo G0 obese female with known PCOS, seen in room 285 at [facility] with a male support person at bedside. She is admitted to hospitalist service for acute anemia with CP and SOB, and had actually already been discharged s/p appropriate rise in Hgb and negative cardiopulmonary workup. She also has a scheduled appt with me in MED CARE MANAGER office on Friday. The patient notes a longstanding history of AUB due to fibroids. I confirmed with her the history I had already obtained via my review of her chart: she underwent abdominal myomectomy in [address] Vasquez, and briefly used depo to reduce bleeding. 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 She now regained insurance and is scheduled to see me for a new patient consult in 2 days' time at the office. Her recent care includes two short interval visits to the ER, the second of which resulted in this admission late last night. A consult was placed for our service this morning. Karmen notes that she does not want to use hormonal management because the depo "didn't work." I asked for details and she notes she didn't stop bleeding while she was on it. There were heavy days and some days of just spotting, but the bleeding didn't stop completely. Records show she did cancel many appointments with [facility] [place] [place] and did not use depo for long. Today we discussed that the overall bleeding volume did reduce, which would be considered appropriate response to the early dose(s) of depo, and that cessation of bleeding may not be the only marker of success (and indeed may not be a reachable goal depending on her uterus and fibroids). Her personal comorbidities also limits the use of estrogens, as she has a history of chronic LEMUS with TIA. She also notes she is afraid of implants including IUD's and Nexplanon. We discussed the reasons women may fear these, and the actual safety data behind these devices, and encouraged her to consider them. We discussed her plans and goals: She isn't sure if she wants , either right away or at all. But she notes with tearfulness that her sisters have been able to have babies and do not seem to suffer from fibroids or menorrhagia, and this feels very unfair. Karmen herself has not yet tried actively to conceive and doesn't know if she can or if she will have difficulty. She has not been ready to consider hysterectomy, and part of her reasoning for avoiding further myomectomy was wanting not to "damage her uterus." She notes she was hoping that fibroids inside the uterus could be removed in a different way than the surgery she previously underwent. We discussed that this might be a possibility, however that process still impacts future fertility, and leaving fibroids in the uterus where they continue to grow without treatment also impacts future fertility. Empathy provided; it's difficult that there is not a simple choice for Karmen, undoubtedly. Ultimately, it may not be fair that she has fibroids and PCOS, but these conditions are the cards she's been dealt, and we will be happy to support her in managing them. Deciding her goals with respect to fertility is something only she can do, but knowing her wishes in that regard will help us determine what the best treatment plan is for her as the years go by. There are likely more safe options for her than she has been willing to consider, as she has been held back by fears that are not based in fact. Thus, more information may help her realize that she has not been fully taking advantage of the choices available. IUD's may be an excellent option. At the same time, complete cessation of bleeding (or a light and regular menses) may not be realistic expectations for her. Managing the bleeding to avoid transfusion, getting a successfully completed if this is a priority for her, and achieving definitive management if she wants NO bleeding and has completed childbearing, are all options that we can likely help her with. Various treatment goals may be in conflict such that we have to pick one at a time, however, and this was all reviewed today at the bedside. We did not discuss today the role that morbid obesity also plays in contributing to menorrhagia, but can do so when we meet on Friday. This is of course complex, and both PCOS and depo may contribute to obesity, even as obesity contributes to increased estrogen and endometrial stimulation. Certainly, weight reduction would be beneficial for her fertility, reducing menstrual flow, and reducing endometrial cancer risk. For the immediate moment, Karmen was assured that she is safe - her bleeding has decreased, her Hgb is improved appropriately. She was offered immediate start of various types of progestin-based treatment to secure her against resumption of bleeding, which she noted she is afraid of, but she declined all of them at this time. She wants to think about what we've discussed and come to see me Friday as planned. Allergies Allergy/AdvReac Type Severity Reaction Status Date / Time nickel Allergy Intermediate Rash Verified 10/05/22 19:16 Home Medications Medication Instructions Recorded Confirmed Type ferrous sulfate 15 mg iron (75 1 ml PO BID #50 mL 10/03/22 10/05/22 Rx mg)/mL oral drops (Pee-In-Rosamaria) Patient History Medical History ADHD Will be starting Adderall in near future Anemia secondary to bleeding from fibroids Anxiety Chronic headaches Depression Ovarian cyst PCOS (polycystic ovarian syndrome) Recently started on Metformin Scoliosis Mild Seasonal allergies Stress headaches Surgical History History of adenoidectomy History of myringotomy [place] teeth extracted Family History Mother History of anesthesia reaction difficulty breathing after anesthesia due to asthma> resolved during recovery. happened x1 Diabetes Social History Smoking Status: Never smoker Second Hand Exposure: No; Hx Alcohol Use: No Hx Substance Use: No Preferred Language: Austrian Communication Ability: Effective Video Tape Duplicator Required: No Beliefs That Will Affect Care: None Current Living Situation: Alone Feels Safe at Home: Yes Safety Concerns: Feels Safe At This Time Assistive Devices: Glasses Assistive Devices Comment: prescription glasses Physical Exam Physical Exam: Seen in Rm 285, sitting semi-broussard's in hospital bed, wearing gown, with male support person at bedside between bed and window. Intermittently tearful. NAD other than emotionally. Morbidly obese female appearing stated age. No respiratory distress. Breast development with macromastia apparent. No pelvic exam at this time; patient reports ongoing but decreased VB compared to admission. Results & Data ([facility]) Vital Signs (Past 12 Hours) Vital Signs Temp Pulse Pulse Resp BP BP BP 10/06/22 07:50 100 H 10/06/22 06:40 98.2 F 99 H 20 100/66 10/06/22 03:31 97.9 F 103 H 18 122/78 10/06/22 02:10 98.1 F 105 H 18 113/76 10/06/22 01:40 98.2 F 99 H 18 138/87 10/06/22 01:24 98.8 F 99 H 18 121/76 10/06/22 01:07 98.2 F 100 H 18 124/85 10/06/22 00:39 98.4 F 102 H 18 131/74 10/06/22 00:41 98.4 F 106 H 18 131/74 10/05/22 23:50 98.1 F 106 H 18 123/79 Pulse Ox O2 Del Method 10/06/22 07:50 10/06/22 06:40 97 Room Air 10/06/22 03:31 97 10/06/22 02:10 96 10/06/22 01:40 98 10/06/22 01:24 98 10/06/22 01:07 97 10/06/22 00:39 97 10/06/22 00:41 97 Room Air 10/05/22 23:50 96 Laboratory Results Laboratory Results - last 24 hr 10/05/22 10/05/22 10/05/22 19:10 19:10 19:10 WBC 10.62 RBC 3.45 L Hgb 6.7 L* Hct 23.0 L MCV 66.7 L MCH 19.4 L MCHC 29.1 L RDW Std Deviation 39.4 RDW Coeff of Ashley 16.7 H Plt Count 350 MPV 10.3 Immature Gran % (Auto) 1.4 Neut % (Auto) 74.1 Lymph % (Auto) 14.2 [place] % (Auto) 7.3 Eos % (Auto) 2.4 Baso % (Auto) 0.6 Neut # (Auto) 7.87 H Lymph # (Auto) 1.51 [place] # (Auto) 0.77 Eos # (Auto) 0.26 Baso # (Auto) 0.06 Immature Gran # (Auto) 0.15 H Absolute Nucleated RBC 0.15 H Nucleated RBC % (auto) 1.4 Hypochromasia Present Microcytosis Present Tear Drop Cells 1+ PT INR Sodium 139 Potassium 3.8 Chloride 106 Carbon Dioxide 26 Anion Gap 7 BUN 12 Creatinine 0.62 Est Cr Clr Drug Dosing 171.1 Est GFR ( Amer) 143.2 Est GFR (Non-Af Amer) 123.6 BUN/Creatinine Ratio 19.4 Glucose 85 Calcium 9.1 Magnesium Total Bilirubin 0.5 AST 10 L ALT 12 Alkaline Phosphatase 72 Troponin I High Sens < 2.3 Total Protein 6.6 Albumin 3.9 Globulin 2.7 Albumin/Globulin Ratio 1.4 Lipase 7 L HCG, Qual SARS-CoV-2, RNA, NAAT Blood Type A Positive Antibody Screen NEGATIVE Crossmatch See Detail 10/05/22 10/05/22 10/05/22 19:10 19:10 19:12 WBC RBC Hgb Hct MCV MCH MCHC RDW Std Deviation RDW Coeff of [place] Plt Count MPV Immature Gran % (Auto) Neut % (Auto) Lymph % (Auto) [place] % (Auto) Eos % (Auto) Baso % (Auto) Neut # (Auto) Lymph # (Auto) [place] # (Auto) Eos # (Auto) Baso # (Auto) Immature Gran # (Auto) Absolute Nucleated RBC Nucleated RBC % (auto) Hypochromasia Microcytosis Tear Drop Cells PT 11.4 INR 1.1 Sodium Potassium Chloride Carbon Dioxide Anion Gap BUN Creatinine Est Cr Clr Drug Dosing Est GFR ( Amer) Est GFR (Non-Af Amer) BUN/Creatinine Ratio Glucose Calcium Magnesium Total Bilirubin AST ALT Alkaline Phosphatase Troponin I High Sens Total Protein Albumin Globulin Albumin/Globulin Ratio Lipase HCG, Qual Negative SARS-CoV-2, RNA, NAAT NEGATIVE Blood Type Antibody Screen Crossmatch 10/06/22 10/06/22 10/06/22 05:16 05:16 05:16 WBC 12.30 H RBC 4.20 Hgb 9.2 L Hct 29.8 L MCV 71.0 L D MCH 21.9 L MCHC 30.9 L RDW Std Deviation 49.5 H RDW Coeff of [place] 19.8 H Plt Count 375 MPV 10.6 Immature Gran % (Auto) 1.3 Neut % (Auto) 74.4 Lymph % (Auto) 15.8 [place] % (Auto) 6.1 Eos % (Auto) 2.0 Baso % (Auto) 0.4 Neut # (Auto) 9.16 H Lymph # (Auto) 1.94 [place] # (Auto) 0.75 Eos # (Auto) 0.24 Baso # (Auto) 0.05 Immature Gran # (Auto) 0.16 H Absolute Nucleated RBC 0.15 H Nucleated RBC % (auto) 1.2 Hypochromasia Microcytosis Tear Drop Cells PT INR Sodium 139 Potassium 3.6 Chloride 105 Carbon Dioxide 27 Anion Gap 7 BUN 9 Creatinine 0.64 Est Cr Clr Drug Dosing 166.5 Est GFR ( Amer) 141.7 Est GFR (Non-Af Amer) 122.3 BUN/Creatinine Ratio 14.1 Glucose 112 H Calcium 8.5 Magnesium 1.8 Total Bilirubin AST ALT Alkaline Phosphatase Troponin I High Sens < 2.3 Total Protein Albumin Globulin Albumin/Globulin Ratio Lipase HCG, Qual SARS-CoV-2, RNA, NAAT Blood Type Antibody Screen Crossmatch 10/06/22 10:47 WBC RBC Hgb Hct MCV MCH MCHC RDW Std Deviation RDW Coeff of [place] Plt Count MPV Immature Gran % (Auto) Neut % (Auto) Lymph % (Auto) [place] % (Auto) Eos % (Auto) Baso % (Auto) Neut # (Auto) Lymph # (Auto) [place] # (Auto) Eos # (Auto) Baso # (Auto) Immature Gran # (Auto) Absolute Nucleated RBC Nucleated RBC % (auto) Hypochromasia Microcytosis Tear Drop Cells PT INR Sodium Potassium Chloride Carbon Dioxide Anion Gap BUN Creatinine Est Cr Clr Drug Dosing Est GFR ( Amer) Est GFR (Non-Af Amer) BUN/Creatinine Ratio Glucose Calcium Magnesium Total Bilirubin AST ALT Alkaline Phosphatase Troponin I High Sens < 2.3 Total Protein Albumin Globulin Albumin/Globulin Ratio Lipase HCG, Qual SARS-CoV-2, RNA, NAAT Blood Type Antibody Screen Crossmatch (1) Anemia Anemia type: unspecified type Qualified Code(s): D64.9 - Anemia, unspecified
--- NOTE | 2022-10-06 13:09 | Discharge Summary ---
Date of Service October 06, 2022 Admission HPI Per Admitting Provider This is a 27-year-old female with past medical history significant for prediabetes, allergic rhinitis, morbid obesity, uterine leiomyoma, kathia cisterna magna, iron-deficiency anemia due to chronic blood loss, history of single episode of depression, presents with ongoing heavy vaginal bleeding. The patient states it is going on since 2017. She had surgery done in August 2020 for removal of fibroid, but she syas has more fibroids and she does not like removal of them because she does not want to damage her uterus. She is to get iron infusion, but is no longer getting them. She lost her insurance and is no longer following with any doctor for a long time now. This episode of heavy vaginal bleeding started in May. She says she got insurance now. She has appointment with [facility] from [facility] on Friday and she also is trying to get in to see a family doctor with [facility]. Currently not on any meds. She was in the ER on 10/03/2022 with weakness, significant vaginal bleeding and her hemoglobin was found to be 7.3 and she was discharged to follow up with [facility] and family doctor. She again comes back today because of weakness in the legs and also she is having exertional dyspnea and chest pain on exertion h and mild dizziness. Denies any headache. No blurred visions, no earache, no runny nose, no sore throat, no cough, no fevers. Appetite is not that great because of nausea. No abdominal pain. Normal bowel and bladder movements. Currently, resting comfortably and hemodynamically stable. Admission Exam Per Admitting Provider GENERAL: The patient is morbidly obese, not in acute distress. VITAL SIGNS: Temperature 36.7, pulse 113, respiratory rate 20, blood pressure 134/78, oxygen 100% on room air. HEENT: Pupils equal, round and reactive to light. Oral mucosa moist. NECK: No JVD. No neck masses. CARDIOVASCULAR: S1 and S2 heard. Regular rate and rhythm. No murmur, no gallop. RESPIRATORY SYSTEM: Normal AP diameter. No accessory muscle use. No wheezing, no crackles. ABDOMEN: Soft, bowel sounds present, nontender, no distention. CENTRAL NERVOUS SYSTEM: Alert and oriented. Nonfocal. EXTREMITIES: No edema, no erythema. Principal Diagnosis Symptomatic anemia secondary to vaginal bleed/fibroids Discharge Exam GENERAL:morbidly obese F, not in acute distress. HEENT: NC/AT, EOMI, Pupils equal, round and reactive to light. Oral mucosa moist. NECK: No JVD. No neck masses. CARDIOVASCULAR: S1 and S2 heard. Regular rate and rhythm. No murmur, no gallop. RESPIRATORY: Normal AP diameter. No accessory muscle use. No wheezing, no crackles. ABDOMEN: Soft, bowel sounds present, nontender, no distention. NEURO: Alert and oriented. Answering questions appropriately, moves extremities EXTREMITIES: No edema, no erythema. Discharge Data Allergies Allergy/AdvReac Type Severity Reaction Status Date / Time nickel Allergy Intermediate Rash Verified 10/05/22 19:16 Consultations 10/05/22 19:36 ED Decision to Admit Stat 10/06/22 07:03 Consult Obstetrics Routine Hospital Course (1) Abnormal vaginal bleeding: (2) Anemia: (3) Symptomatic anemia: This is a 27-year-old female who presents with symptomatic anemia. 1. Symptomatic anemia, heavy vaginal bleeding - going on since 2017, has fibroids. She had surgery for fibroid in 2019, and she does not want any more surgery because she does not want to damage uterus. She lost insurance and could not follow up with doctor for long time. She also has history of PCOD, has appointment to Angy Prado [facility] coming Friday. ER ordered 2 units of PRBC, which were given. Hgb in ER 6.7, Hgb now 9.2 She was having shortness of breath and chest pains on exertion possibly from anemia. Cardiac enzymes ordered - x3 - negative Echocardiogram obtained - unremarkable. LV is normal in size. LV systolic function is normal. EF 55 to 60%. LV wall motion is normal. RV systolic function is normal. LA size is normal. RA size is normal. There is no pericardial effusion. No significant valvular pathology. Discussed with gynecology, Dr. Whitt, over the phone. Patient can be discharged from the hospital, and will be seen by her on Friday in the office. 2. Polycystic ovarian disease: Followup with [facility]. 3. Obesity: Needs counseling/lifestyle modifications. Total Time Total Time Spent Total Time Spent (In Minutes): 40 Discharge Plan Discharge Items Patient Disposition: Home - Self-Care Reason For Visit: DIFFICULTY BREATHING, VOMITING, LOW IRON Discharge Diagnosis: Symptomatic anemia secondary to vaginal bleed/fibroids Activity: Per Instructions section Non-emergency contact: Primary Care Provider Call non-emergency contact if: you have any medication questions and your symptoms worsen Follow-up/Referrals: Lucero Ledesma DO [Primary Care Provider] - Diet: Heart Healthy Addtl Attending Provider Instructions: Follow-up with gynecology, Dr. Whitt, on Friday as already scheduled. Continue iron supplement. Make sure to stay well-hydrated. Pending Studies at Discharge: No Stand-Alone Forms: My [facility], Smoking Cessation Medications and DC Order Prescriptions: Continued ferrous sulfate [Pee-In-Rosamaria] 15 mg iron (75 mg)/mL drops 1 ml PO BID Qty: 50 0RF Rx Instructions: PER PT "HAS NOT STARTED YET, PHARMACY DID NOT GET IT IN YET". Discharge Orders: Discharge Order (Routine); Ordered 10/06/22 Ordered By: Chalino Worthy Admission Data Admit Date/Time: 10/05/22 20:25 Attending Provider: Chalino Worthy Admit Provider: Chalino Worthy Primary Care Provider: Lucero Ledesma Other Providers: Aleksandr Chaidez ; Anabelle Strauss ; Josette Syed ; Sherita De Santiago ; Cammy East ; Kathya Whitt ; Nader Upton ; Josy Cohen ; Alaina Lee ; Aldair Cabreraanthtay Vang ; Avelina Adams ; Rom Huber Other Interventions: Discharge Summary Assessment (RN) Last Done: 10/06/22 12:39
--- NOTE | 2022-10-08 14:42 | Electrocardiogram Report ---
Test Reason : Blood Pressure : / mmHG Vent. Rate : 103 BPM Atrial Rate : 103 BPM P-R Int : 156 ms QRS Dur : 080 ms QT Int : 348 ms P-R-T Axes : -05 014 002 degrees QTc Int : 455 ms Sinus tachycardia Otherwise normal ECG When compared with ECG of 05-OCT-2022 18:50, No significant change was found Confirmed by Dominic Deleon ([id number]) on 10/08/2022 2:41:59 PM Referred By: REFERRED SELF Confirmed By:Sean Deleon
== END 2022-10-06 14:25 | disposition home or self-care (01) ==
LOC: ED 18:31 → INTOOBSV 20:25 → 2N 20:25

== ENCOUNTER 2022-11-05 19:12 | Observation (INO) ==
[2022-11-05 20:35] LABS: Appearance Urine Cloudy (Clear); Bacteria Urine Automated Negative (Negative); Blood Urine 3+ (Negative); Color Urine Orange; Glucose Urine UA Negative (Negative); Ketones Urine 1+ (Negative); Leukocyte Esterase Urine Trace (Negative); Nitrite Urine Negative (Negative); Protein Urine 2+ (Negative); RBC Urine Automated >30 /hpf (0-4); Specific Gravity Urine 1.025 (1.000-1.030); Urobilinogen Urine Negative (Negative); pH Urine 5.5 (4.5-7.5)
[2022-11-05 20:36] LABS: Bilirubin Urine 1+ (Negative)
[2022-11-05 20:43] LABS: Albumin Globulin Ratio 1.7 (0.9-2); Albumin Level 4.6 gm/dl (3.4-5.0); BUN Creatinine Ratio 18.7 (10-20); Bilirubin,Total 0.7 mg/dl (0.2-1.0); Calcium 9.8 mg/dl (8.5-10.1); Creatinine Clr Calc Pharmacy 139.6 ml/min; Est GFR (African American) 126.6 ml/min; Est GFR (Non-African American) 109.2 ml/min; Globulin 2.7 gm/dl (2.5-4.0); Potassium 3.7 mmol/L (3.5-5.1); Total Protein 7.3 gm/dl (6.0-8.3)
[2022-11-05 20:48] LABS: Epithelial Cell Urine Auto 0-5 /lpf (0-5)
[2022-11-05 20:50] LABS: Mucus Urine Present (None Prsent)
[2022-11-05 20:51] LABS: Hematocrit (blood only) 22.3 % (37.0-47.0); Hemoglobin 6.1 g/dl (12.0-16.0); Mean Corpuscular Hemoglobin 17.4 pg (25.0-34.0); Mean Corpuscular Hgb Conc 27.4 g/dL (32.0-36.0); Mean Corpuscular Volume 63.7 fL (80.0-100.0); Mean Platelet Volume 10.8 fL (9.4-12.4); Nucleated RBC # (auto) 0.14 K/uL (0-0.12); Nucleated RBC % (auto) 1.3 %; Platelet Count 372 K/uL (130-400); RDW Coefficient of Variation 23.6 % (11.5-14.5); RDW Standard Deviation 51.2 fL (36.4-46.3); White Blood Count 10.55 K/ul (4.8-10.8)
[2022-11-05 20:59] LABS: Anisocytosis Present; Basophils # (auto) 0.06 K/uL (0-0.2); Basophils % (auto) 0.6 %; Eosinophils # (auto) 0.11 K/uL (0-0.50); Immature Granulocytes # (auto) 0.16 K/uL (0.01-0.20); Immature Granulocytes % (auto) 1.5 %; Lymphocytes # (auto) 1.57 K/uL (1.2-3.4); Lymphocytes % (auto) 14.9 %; Microcytosis Present; Monocytes # (auto) 0.49 K/uL (0.11-0.59); Monocytes % (auto) 4.6 %; Neutrophils # (auto) 8.16 K/uL (1.40-6.50); Neutrophils % (auto) 77.4 %; Polychromasia 1+; Schistocytes 1+; Tear Drop Cells 1+
[2022-11-05 21:00] LABS: INR 1.1 (0.9-1.1); Partial Thromboplastin Ratio 0.9; Partial Thromboplastin Time 24.5 Seconds (21.0-31.0); Prothrombin Time 11.4 Seconds (9.0-12.0)
[2022-11-05] MEDS ORDERED: SODIUM CHLORIDE 0.9% 250 ML IV PRN (21:08)
[2022-11-05] MEDS ORDERED: ONDANSETRON INJ 2 MG/ML 2 ML VIAL IV STA (22:04)
--- NOTE | 2022-11-05 22:04 | Consultation ---
Date of Consultation November 05, 2022 Assessment & Plan (1) Abnormal vaginal bleeding: (2) Symptomatic anemia: (3) Fibroids: Plan Again we are at a point of symptomatic anemia in need of transfusion. Got two units at her last ED visit and has just bled all of that out of her vagina. The lining continues to by thin. Has only been 2 weeks s/p depo so it has not really had sufficient time to work. At this point, I think the risks of IV estrogen are outweighed by the benefits of trying to get her bleeding to stop. D&C not indicated given the appearance of the lining and no clots. Estrogen will stimulate the lining of the uterus hopefully decreasing the amount of bleed ing she is having from the more atrophic lining she currently has. We discussed the risks in the setting of complicated migraine with aura--the most concerning being the increased risk of stroke. Has only had two in her life, the last one was a couple of weeks ago. She denies ever having or being diagnosed with a TIA. Also would be at risk for VTE. Also discussed could just transfuse her to a normal h/h and hope that the depo will start to work. After discussion of options and risks and benefits, the patient is ok with moving forward with iv estrogen. Would have to consider the +/- to ocp taper on the other end. Will also get a consult with neurology while in house as cannot get one in a timely fashion as an outpatient. History of Present Illness Requesting Physician: Dr. Aguilar Reason for Consultation: continued vaginal bleeding, anemia History of Present Illness Patient is a 27yowf who presents to the ED with continued vaginal bleeding. Was hospitalized and transfused the end of Sep and had consult with Dr. Whitt. She has basically been changing a tampon every three hours since last seen. Her hgb when transfused at last visit was 6.1. It is now 6.7. After the two units her hgb on leaving the hospital was 10.0 . she is currently tachycardic, but her blood pressure is wnl. Patient returned to the hospital because she felt poorly again and assumed anemic because of continued bleeding--lightheadedness, dizzy, nausea, fatigue and elevated heart rate. Patient denies any cp or sob. Patient has had two complicated migraines with visual aura in the past. The last one was a couple of weeks ago. She has an appt with neurology to evaluate and see if she is a candidate for estrogen thearpy/ocps, but they could not get her in until April. notes she is changing her multiple levels of protection--super tampons and pads every two hours for about a month. Passing clots that are about the size of a golf ball Patient allowed exam by ED physician--cx closed, clots noted in vagina, several removed. The following is the assessment and plan from her hospital consult with Dr. Whitt (1) Abnormal vaginal bleeding: Further plans to be made as outpatient. For now, likely due to combination of fibroids (with distortion of endometrial stripe) and PCOS (oligo-ovulation) plus morbid obesity (excess estrogenic stimulation of endometrium). Management options are several, but limited somewhat by patient's comorbidities (no estrogens should be used if avoidable), and her hesitancy about some of the options (IUD's in particular). Offered immediate start of several progestin treatments to block worsening of bleeding, which patient declines at this time. (2) Anemia: Appropriate managed with 2u pRBC and appropriate rise in Hgb demonstrated. OK for d/c as per hospitalist team, whose care during this admission is noted and appreciated. The cardiopulmonary workup for her symptoms at admission is seen and reassuring. Symptoms have appropriately resolved after anemia was treated. Ultrasound at that time showed a lining distorted by fibroids and 5mm. fibroids measure up to 4cm. Notes from Sep 2022: NEW Artemio is previously seen by [facility], had abd myomectomy with Christina previously, was briefly on depo but didn't feel it worked because she only got a reduction in bleeding rather than cessation (had few or maybe only one injection, cancelled many appts) and then lost insurance / went without f/u for a while. Recent admission two days ago at [facility] for transfusion due to acute blood loss anemia. I met her in the hospital and we discussed then: she is unsure about fertility goals, does not feel certain she wants additional surgery for fibroids as she worries it is damaging her uterus, and is fearful of many of the hormonal treatment options. Did not want to start any treatment prior to D/C from hospital. Still bleeding today, same as when she went to hospital this past weekend, which is one ultra tampon Q2-3 hours. No lightheadedness or anemia symptoms, no SOB, no CP. This is "normal" bleeding for her, not a scary amount. She is unable to tell when she has a "period" vs when she's having unscheduled bleeding, as there is no discernable pattern. There are rare days when she doesn't bleed at all, but they are not many at all, and she generally always has a tampon or a brief/maxi on because it could happen at any time. She notes that one day in Apr 2021 she took her nephew to an [employer] game and she can't remember most of the day; she lost feeling in her left arm, and couldn't speak. She went to the ER and was tested for stroke and heart attack and clot; all workup was negative so she was diagnosed with a complex migraine. She was also COVID-positive at the time which was diagnosed on arrival, so it's unclear if that contributed to her episode. Has never had another migraine or neurologic episode. Has seen a neurologist back in early 2019 for stress related headaches that were attributed to the pandemic, but was NOT diagnosed with migraine at that time per the patient. She was put on amitryptiline but she came off it because a psychiatrist she later saw recommended she stop those and try different meds (clonidine and adderall, which she has also subsequently stopped). She has been on CH[facility] control pills, maybe ten years ago. She felt they did not work for her as she has never really had a normal period, but does note the menses weren't as heavy as they are currently - they were still irregular. 1) Neuro consult to get clearance for possible use of estrogens for PCOS blaise tment 2) Progestin methods discussed and one selected for management of heavy bleeding which is the current goal. Not pursuing right now, also not pursuing definitive tx at the expense of future fertility. Will use depo Q10wk and anticipate 3 shots before full effect given incomplete response to prior lesser dose and frequency. First shot maday, bring to office after picking up at [facility]. 3) Can add metformin and/or spironolactone as next steps after progestin successfully on board - will meet in 10 wk to give second shot and discuss adding next agent 4) Discussed weight management referral for additional tools for risk reduction via obesity treatment 5) Labs today to r/o thyroid issues as part of her picture. Fibroids, PCOS, obesity, possibly thyroid, all interacting to result in her very frustrating AUB and anemia. All need to be considered and addressed. Today ultrasound shows again a thin lining of 5-6mm, no clots noted in uterus. (My review of images, formal report not here yet). Allergies Allergy/AdvReac Type Severity Reaction Status Date / Time nickel Allergy Intermediate Rash Verified 11/05/22 21:18 Home Medications Medication Instructions Recorded Confirmed Type ferrous sulfate 15 mg iron (75 1 ml PO BID #50 mL 10/03/22 11/05/22 Rx mg)/mL oral drops (Pee-In-Rosamaria) medroxyprogesterone 150 mg/mL 150 mg IM .q10wk #1 mL 10/08/22 11/05/22 Rx intramuscular suspension (Depo-Provera) levothyroxine 25 mcg tablet 25 mcg PO DAILY #90 tabs 10/09/22 11/05/22 Rx (Synthroid) Patient History Medical History ADHD Will be starting Adderall in near future Anemia secondary to bleeding from fibroids Anxiety Chronic headaches Depression Encounter for pre-operative examination Ovarian cyst PCOS (polycystic ovarian syndrome) Recently started on Metformin Scoliosis Mild Seasonal allergies Stress headaches Surgical History History of adenoidectomy History of myringotomy [place] teeth extracted Family History Mother History of anesthesia reaction difficulty breathing after anesthesia due to asthma> resolved during recovery. happened x1 Diabetes Denies family history of Ovarian cancer Prostate cancer Myocardial infarction Breast cancer Colorectal cancer Social History Smoking Status: Never smoker Second Hand Exposure: No; Hx Alcohol Use: No Hx Substance Use: No Preferred Language: Irish Communication Ability: Effective Electrical Systems Drafter Required: No Beliefs That Will Affect Care: None Current Living Situation: Alone Feels Safe at Home: Yes Assistive Devices: Glasses Physical Exam Constitutional: WD/WN, vitals as above Neck: trachea midline, no thyromegaly Cardiovascular: Rate/Rhythm: regular rate and + tachycardic Extremities: no calf tenderness and no edema Gastrointestinal (Abdomen): obese, soft, nt, nd Psychiatric: A+Ox3, euthymic affect Results & Data ([facility]) Vital Signs (Past 12 Hours) Vital Signs Temp Pulse Resp BP Pulse Ox O2 Del Method 11/05/22 21:31 119 H 15 98 Room Air 11/05/22 21:31 131/79 11/05/22 21:32 119 H 11/05/22 19:32 36.4 C L 130 H 16 141/81 H 100 PG Care Time/CCT Total # of Minutes Spent Total Time Spent with Patient: Total time spent is greater than 50% in coordination of care (as documented) at patient's floor/unit and/or counseling patient: Coding Level of Care Code INP/OBS CONSULT LVL 2, 35 MIN Diagnoses Abnormal vaginal bleeding N93.9 Symptomatic anemia D64.9 Fibroids D21.9
--- NOTE | 2022-11-05 22:42 | Emergency Department Note ---
History of Present Illness General Chief complaint: Illness Stated complaint: HEMOGLOBIN LOW,LEG/ARM PAIN,HEART RATE HIGH Time Seen by Provider: 11/05/22 20:34 History of Present Illness Provider Complaint: + vaginal bleeding Onset (ago): month(s) (1) Current Pain Intensity: 0 Patient Confirmed : No Associated symptoms: no abdominal pain, no nausea/vomiting or no fever/chills Patient reports she has been using 1 tampon every 3 hours. Home Medications Medication Instructions Recorded Confirmed Type ferrous sulfate 15 mg iron (75 1 ml PO BID #50 mL 10/03/22 11/05/22 Rx mg)/mL oral drops (Pee-In-Rosamaria) medroxyprogesterone 150 mg/mL 150 mg IM .q10wk #1 mL 10/08/22 11/05/22 Rx intramuscular suspension (Depo-Provera) levothyroxine 25 mcg tablet 25 mcg PO DAILY #90 tabs 10/09/22 11/05/22 Rx (Synthroid) Allergies Allergy/AdvReac Type Severity Reaction Status Date / Time nickel Allergy Intermediate Rash Verified 11/05/22 21:18 Past Med/Surg History Medical History ADHD Will be starting Adderall in near future Anemia secondary to bleeding from fibroids Anxiety Chronic headaches Depression Encounter for pre-operative examination Ovarian cyst PCOS (polycystic ovarian syndrome) Recently started on Metformin Scoliosis Mild Seasonal allergies Stress headaches Surgical History History of adenoidectomy History of myringotomy [place] teeth extracted Family History Mother History of anesthesia reaction difficulty breathing after anesthesia due to asthma> resolved during recovery. happened x1 Diabetes Denies family history of Ovarian cancer Prostate cancer Myocardial infarction Breast cancer Colorectal cancer Social History Smoking Status: Never smoker Second Hand Exposure: No; Hx Alcohol Use: No Hx Substance Use: No Preferred Language: Vietnamese Communication Ability: Effective [employer] Consultant Required: No Beliefs That Will Affect Care: None Current Living Situation: Alone Feels Safe at Home: Yes Assistive Devices: Glasses Physical Exam Vital Signs: Vital Signs - 24 hr 11/05/22 19:32 11/05/22 21:32 11/05/22 21:31 Temperature 36.4 C L Temperature Source Temporal Artery Sc an Pulse Rate 130 H 119 H Pulse Rate [Apical ] Pulse Rate from Sp O2 Sensor Pulse Strength Respiratory Rate 16 Respiratory Effort / Characteristics Respiratory Depth Respiratory Patter n Blood Pressure 141/81 H 131/79 Blood Pressure [Le ft Arm] Blood Pressure Toma n 101 96 Blood Pressure Toma n [Left Arm] Blood Pressure Pos ition [Left Arm] Pulse Oximetry 100 Oxygen Delivery Me thod Sepsis Recent Feve r Within 48 Hours No Sepsis New/Unexpla ined Change in Men amairani Status No Sepsis Action Take n by Nursing No Action Required 11/05/22 21:31 11/05/22 22:55 11/05/22 23:17 Temperature 37 C 36.8 C Temperature Source Oral Oral Pulse Rate 119 H 116 H Pulse Rate [Apical ] Pulse Rate from Sp O2 Sensor 118 H Pulse Strength Normal Respiratory Rate 15 19 Respiratory Effort / Characteristics Respiratory Depth Respiratory Patter n Blood Pressure 148/81 H Blood Pressure [Le ft Arm] Blood Pressure Toma n 103 Blood Pressure Toma n [Left Arm] Blood Pressure Pos ition [Left Arm] Pulse Oximetry 98 97 Oxygen Delivery Me thod Room Air Sepsis Recent Feve r Within 48 Hours Sepsis New/Unexpla ined Change in Men amairani Status Sepsis Action Take n by Nursing 11/05/22 22:00 11/05/22 22:57 11/05/22 23:00 Temperature Temperature Source Pulse Rate 109 H 120 H Pulse Rate [Apical ] Pulse Rate from Sp O2 Sensor 109 H 122 H Pulse Strength Respiratory Rate 15 17 Respiratory Effort / Characteristics Respiratory Depth Respiratory Patter n Blood Pressure 112/67 148/81 H 151/90 H Blood Pressure [Le ft Arm] Blood Pressure Toma n 82 103 110 Blood Pressure Toma n [Left Arm] Blood Pressure Pos ition [Left Arm] Pulse Oximetry 99 99 Oxygen Delivery Me thod Room Air Sepsis Recent Feve r Within 48 Hours Sepsis New/Unexpla ined Change in Men amairani Status Sepsis Action Take n by Nursing 11/05/22 23:00 11/05/22 23:15 11/05/22 23:28 Temperature 37.0 C Temperature Source Oral Pulse Rate 113 H 109 H Pulse Rate [Apical ] 105 H Pulse Rate from Sp O2 Sensor 113 H 107 H Pulse Strength Respiratory Rate 25 H 13 20 Respiratory Effort / Characteristics Non-Labored Respiratory Depth Normal Respiratory Patter n Regular Blood Pressure Blood Pressure [Le ft Arm] 121/91 Blood Pressure Toma n Blood Pressure Toma n [Left Arm] 101 Blood Pressure Pos ition [Left Arm] Lying Pulse Oximetry 97 100 100 Oxygen Delivery Me thod Room Air Sepsis Recent Feve r Within 48 Hours Sepsis New/Unexpla ined Change in Men amairani Status Sepsis Action Take n by Nursing Physical Exam: Physical Exam GENERAL: oriented to person, place, and time. appears well-developed and well- nourished. HENT: Exam performed. - Head: Normocephalic and atraumatic. EYES: Conjunctivae and EOM are normal. Right eye exhibits no discharge. Left eye exhibits no discharge. No scleral icterus. NECK: Normal range of motion. Neck supple. No JVD present. CV: Normal rate, regular rhythm, normal heart sounds and intact distal pulses. There is no peripheral edema. Palpable radial pulses bue. PULM/CHEST: Effort normal and breath sounds normal. No respiratory distress. No stridor. no wheezes. no rales. ABD: The abdomen is soft. There is no tenderness. : Pelvic exam conducted with female nursing pourer metal Terra at bedside. Patient cervical os is closed. There are blood clots being passed from her vagina. No adnexal tenderness. NEURO: Motor and sensation grossly intact. SKIN: Pale PSYCH: normal mood and affect. Behavior is normal. Judgment and thought content normal. Course Course 2033: The patient was evaluated in room B10. A complete history and physical exam was performed Cardiac monitoring: An order was placed for continuous cardiac monitoring. The monitor shows a rate of 110 with sinus tachycardia rhythm interpreted by me External medical records were reviewed. Patient was seen in the emergency department on October 05, 2022 and was admitted to the hospitalist service for hemoglobin of 6.7 secondary to vaginal bleeding and chest pain. Patient's hemoglobin improved to 10 at time of discharge and October 08, 2022 status post 2 units packed red blood cell transfusion. She followed up with GRAB JACK WORKER in the office on October 08, 2022. Per Dr. Whitt note, the patient had a previous myomectomy with Christina and was recently on Depo but it did not help. Patient was started on Depo-Provera injections. Patient was seen during a time of extreme volume and extreme acuity in the emergency department. Nursing triage protocols were initiated and labs were drawn by protocol in the triage area. Patient's hemoglobin today is 6.1. Will transfuse 1 unit packed red blood cells and discussed with GRAB JACK WORKER. 2151: Spoke with GRAB JACK WORKER Dr. De Santiago she recommends getting an ultrasound today in the emergency department. She agrees with transfusion at this time. 2342: GRAB JACK WORKER Dr. De Santiago evaluated the patient and states she will admit the patient to her service. Administered Medications Discontinued Medications Ondansetron HCl (Ondansetron Inj 2 Mg/Ml 2 Ml Vial) 4 mg IV NOW STA Stop: 11/05/22 22:05 Last Admin: 11/05/22 22:09 Dose: 4 mg Documented By: [facility] Medical Decision Making Medical Records Attestation: I reviewed the patient's medical records. External medical records were reviewed. Patient was seen in the emergency department on October 05, 2022 and was admitted to the hospitalist service for hemoglobin of 6.7 secondary to vaginal bleeding and chest pain. Patient's hemoglobin improved to 10 at time of discharge and October 08, 2022 status post 2 units packed red blood cell transfusion. She followed up with GRAB JACK WORKER in the office on October 08, 2022. Per Dr. Whitt note, the patient had a previous myomectomy with Christina and was recently on Depo but it did not help. Patient was started on Depo-Provera injections. Home Medications Current Medication List: was personally reviewed by me Laboratory Data Attestation: I reviewed the patient's lab results. 11/05/22 20:10 11/05/22 20:10 Lab Results 11/05/22 11/05/22 11/05/22 Range/Units 20:10 20:10 20:10 WBC 10.55 (4.8-10.8) K/ul RBC 3.50 L (4.20-5.40) M/uL Hgb 6.1 L* (12.0-16.0) g/dl Hct 22.3 L (37.0-47.0) % MCV 63.7 L (80.0-100.0) fL MCH 17.4 L (25.0-34.0) pg MCHC 27.4 L (32.0-36.0) g/dL RDW Std Deviation 51.2 H (36.4-46.3) fL RDW Coeff of Ashley 23.6 H (11.5-14.5) % Plt Count 372 (130-400) K/uL MPV 10.8 (9.4-12.4) fL Immature Gran % (Auto) 1.5 % Neut % (Auto) 77.4 % Lymph % (Auto) 14.9 % [place] % (Auto) 4.6 % Eos % (Auto) 1.0 % Baso % (Auto) 0.6 % Neut # (Auto) 8.16 H (1.40-6.50) K/uL Lymph # (Auto) 1.57 (1.2-3.4) K/uL [place] # (Auto) 0.49 (0.11-0.59) K/uL Eos # (Auto) 0.11 (0-0.50) K/uL Baso # (Auto) 0.06 (0-0.2) K/uL Immature Gran # (Auto) 0.16 (0.01-0.20) K/uL Absolute Nucleated RBC 0.14 H (0-0.12) K/uL Nucleated RBC % (auto) 1.3 % Polychromasia 1+ Anisocytosis Present Microcytosis Present Tear Drop Cells 1+ Schistocytes 1+ PT 11.4 (9.0-12.0) Seconds INR 1.1 (0.9-1.1) APTT 24.5 (21.0-31.0) Seconds PTT Ratio 0.9 Sodium 137 (136-145) mmol/L Potassium 3.7 (3.5-5.1) mmol/L Chloride 105 (98-107) mmol/L Carbon Dioxide 23 (21-32) mmol/L Anion Gap 9 (3-11) BUN 14 (6-23) mg/dl Creatinine 0.75 (0.6-1.2) mg/dl Est Cr Clr Drug Dosing 139.6 ml/min Est GFR ( Amer) 126.6 ml/min Est GFR (Non-Af Amer) 109.2 ml/min BUN/Creatinine Ratio 18.7 (10-20) Glucose 95 (70-99(Fasting)) mg/dl Calcium 9.8 (8.5-10.1) mg/dl Total Bilirubin 0.7 (0.2-1.0) mg/dl AST 10 L (13-39) U/L ALT 9 (7-52) U/L Alkaline Phosphatase 67 (34-104) U/L Total Protein 7.3 (6.0-8.3) gm/dl Albumin 4.6 (3.4-5.0) gm/dl Globulin 2.7 (2.5-4.0) gm/dl Albumin/Globulin Ratio 1.7 (0.9-2) Urine Color Urine Appearance (Clear) Urine pH (4.5-7.5) Ur Specific [place] (1.000-1.030) Urine Protein (Negative) Urine Glucose (UA) (Negative) Urine Ketones (Negative) Urine Blood (Negative) Urine Nitrite (Negative) Urine Bilirubin (Negative) Urine Urobilinogen (Negative) Ur Leukocyte Esterase (Negative) Urine WBC (Auto) (0-5) /hpf Urine RBC (Auto) (0-4) /hpf U Hyaline Cast (Auto) (0-5) /lpf U Epithel Cells (Auto) (0-5) /lpf Urine Bacteria (Auto) (Negative) Ur Renal Epithelial Cell Urine Mucus (None Prsent) POC Ur Test (NEG) Blood Type Antibody Screen Crossmatch 11/05/22 11/05/22 11/05/22 Range/Units 20:10 20:10 21:32 WBC (4.8-10.8) K/ul RBC (4.20-5.40) M/uL Hgb (12.0-16.0) g/dl Hct (37.0-47.0) % MCV (80.0-100.0) fL MCH (25.0-34.0) pg MCHC (32.0-36.0) g/dL RDW Std Deviation (36.4-46.3) fL RDW Coeff of Ashley (11.5-14.5) % Plt Count (130-400) K/uL MPV (9.4-12.4) fL Immature Gran % (Auto) % Neut % (Auto) % Lymph % (Auto) % [place] % (Auto) % Eos % (Auto) % Baso % (Auto) % Neut # (Auto) (1.40-6.50) K/uL Lymph # (Auto) (1.2-3.4) K/uL [place] # (Auto) (0.11-0.59) K/uL Eos # (Auto) (0-0.50) K/uL Baso # (Auto) (0-0.2) K/uL Immature Gran # (Auto) (0.01-0.20) K/uL Absolute Nucleated RBC (0-0.12) K/uL Nucleated RBC % (auto) % Polychromasia Anisocytosis Microcytosis Tear Drop Cells Schistocytes PT (9.0-12.0) Seconds INR (0.9-1.1) APTT (21.0-31.0) Seconds PTT Ratio Sodium (136-145) mmol/L Potassium (3.5-5.1) mmol/L Chloride (98-107) mmol/L Carbon Dioxide (21-32) mmol/L Anion Gap (3-11) BUN (6-23) mg/dl Creatinine (0.6-1.2) mg/dl Est Cr Clr Drug Dosing ml/min Est GFR ( Amer) ml/min Est GFR (Non-Af Amer) ml/min BUN/Creatinine Ratio (10-20) Glucose (70-99(Fasting)) mg/dl Calcium (8.5-10.1) mg/dl Total Bilirubin (0.2-1.0) mg/dl AST (13-39) U/L ALT (7-52) U/L Alkaline Phosphatase (34-104) U/L Total Protein (6.0-8.3) gm/dl Albumin (3.4-5.0) gm/dl Globulin (2.5-4.0) gm/dl Albumin/Globulin Ratio (0.9-2) Urine Color [place] Urine Appearance Cloudy A (Clear) Urine pH 5.5 (4.5-7.5) Ur Specific [place] 1.025 (1.000-1.030) Urine Protein 2+ H (Negative) Urine Glucose (UA) Negative (Negative) Urine Ketones 1+ H (Negative) Urine Blood 3+ H (Negative) Urine Nitrite Negative (Negative) Urine Bilirubin 1+ H (Negative) Urine Urobilinogen Negative (Negative) Ur Leukocyte Esterase Trace H (Negative) Urine WBC (Auto) 10-30 H (0-5) /hpf Urine RBC (Auto) >30 H (0-4) /hpf U Hyaline Cast (Auto) 1-5 (0-5) /lpf U Epithel Cells (Auto) 0-5 (0-5) /lpf Urine Bacteria (Auto) Negative (Negative) Ur Renal Epithelial Cell Not Reportable Urine Mucus Present A (None Prsent) POC Ur Test NEG (NEG) Blood Type A Positive Antibody Screen NEGATIVE Crossmatch See Detail Imaging Data Radiologist's Impression: PreliminaryFindingsOnly See Final Report For Complete Findings US PELVIC/ENDOVAG: To uterine fibroids measured 2.9 cmand 3.2 cm. The ovaries are unremarkable. No torsion. Radiologist: Anabella Villanueva MD Nohemy vasquez ready at 23:18 and initial results transmitted at 23:40 ECG Data Attestation: I personally reviewed and interpreted this ECG as follows: Indication: weakness Rate (beats per minute): 129 Rhythm: sinus tachycardia Findings: no ST depression, no ST elevation or no prolonged QT Additional Comments: QRS 76 MDM Narrative 2033: The patient was evaluated in room B10. A complete history and physical exam was performed Cardiac monitoring: An order was placed for continuous cardiac monitoring. The monitor shows a rate of 110 with sinus tachycardia rhythm interpreted by me External medical records were reviewed. Patient was seen in the emergency depa rtment on October 05, 2022 and was admitted to the hospitalist service for hemoglobin of 6.7 secondary to vaginal bleeding and chest pain. Patient's hemoglobin improved to 10 at time of discharge and October 08, 2022 status post 2 units packed red blood cell transfusion. She followed up with GRAB JACK WORKER in the office on October 08, 2022. Per Dr. Whitt note, the patient had a previous myomectomy with Christina and was recently on Depo but it did not help. Patient was started on Depo-Provera injections. Patient was seen during a time of extreme volume and extreme acuity in the emergency department. Nursing triage protocols were initiated and labs were drawn by protocol in the triage area. Patient's hemoglobin today is 6.1. Will transfuse 1 unit packed red blood cells and discussed with GRAB JACK WORKER. 2151: Spoke with GRAB JACK WORKER Dr. De Santiago she recommends getting an ultrasound today in the emergency department. She agrees with transfusion at this time. 3: GRAB JACK WORKER Dr. De Santiago evaluated the patient and states she will admit the patient to her service. Impression & Plan Fibroids, Abnormal vaginal bleeding, Symptomatic anemia Critical Care Time Critical Care Time: Yes Total Critical Care Time: 43 I have personally spent greater than 43 minutes of critical care time in the direct management of this patient. This includes bedside care, interpretation of diagnostic studies, and testing, discussion with consultants, patient, and family members, and other required patient management activities. This 43 minutes is in excess of all separately billable procedures. Discharge Plan Visit Data Chief Complaint: Illness Stated Complaint: HEMOGLOBIN LOW,LEG/ARM PAIN,HEART RATE HIGH ED Provider: Price Aguilar Discharge Problem: Fibroids, Abnormal vaginal bleeding, Symptomatic anemia Patient Disposition: Admitted As Inpatient Forms Stand Alone Forms: My [facility] Prescriptions Prescriptions: No Action levothyroxine [Synthroid] 25 mcg tablet 25 mcg PO DAILY Qty: 90 3RF medroxyprogesterone [Depo-Provera] 150 mg/mL suspension 150 mg IM .q10wk Qty: 1 4RF Rx Instructions: Inject 1ml IM every 10 weeks ferrous sulfate [Pee-In-Rosamaria] 15 mg iron (75 mg)/mL drops 1 ml PO BID Qty: 50 0RF Referrals Referrals: Lucero Ledesma DO [Primary Care Provider] -
[2022-11-06] MEDS ORDERED: ESTROGENS, CONJUGATED 25 MG in SYRINGE 0 ML IV SCH
[2022-11-06] MEDS: ONDANSETRON INJ 2 MG/ML 2 ML VIAL IV PRN ×2 (00:57→14:30)
[2022-11-06] MEDS ORDERED: SODIUM CHLORIDE 0.9% 250 ML IV PRN ×4 (02:08→19:39)
[2022-11-06] MEDS: ACETAMINOPHEN 325 MG TAB PO PRN ×2 (02:48→19:31)
[2022-11-06] MEDS: LACTATED RINGER'S 1,000 ML IV SCH ×2 (02:51→14:29)
[2022-11-06] MEDS ORDERED: Nursing to Pharmacy Communication SCH ×2 (03:00→09:30)
[2022-11-06] MEDS: LEVOTHYROXINE SODIUM 25 MCG TABLET PO SCH (06:00)
--- NOTE | 2022-11-06 07:49 | Gynecologic Progress Note ---
Date of Service November 06, 2022 Assessment & Plan (1) Abnormal vaginal bleeding: (2) Symptomatic anemia: Plan Finishing up unit two of blood. Plan cbc at noon. Hope to get neurology consult today. continue to monitor bleeding. Admission and Anticipated Discharge Date Admission Date: November 05, 2022 Subjective Feeling overall better. Is moving around and voiding without issue. Not as dizzy or lightheaded. Notes still bleeding, may be slightly less. One dose of Premarin on board. Unit 2 of blood hanging. Denies cp/sob/mcgarry. Physical Exam Constitutional: WD/WN, vitals as above Cardiovascular: Rate/Rhythm: regular rate and + tachycardic Extremities: no calf tenderness and no edema Gastrointestinal (Abdomen): obese, soft, nt Results & Data ([facility]) Vital Signs (Past 12 Hours) Vital Signs Temp Pulse Pulse Resp BP BP Pulse Ox 11/06/22 06:50 36.8 C 101 H 18 131/69 99 11/06/22 06:20 36.7 C 105 H 18 134/71 100 11/06/22 06:05 36.7 C 102 H 18 124/71 100 11/06/22 05:47 37.0 C 102 H 20 121/64 100 11/06/22 02:25 36.6 C 98 H 18 124/68 100 11/06/22 01:25 110 H 11/06/22 00:45 107 H 16 115/71 99 11/06/22 00:30 108 H 16 106/74 99 11/06/22 00:15 108 H 15 129/65 98 11/06/22 00:01 111 H 17 151/101 H 98 11/05/22 23:45 108 H 15 128/72 98 11/05/22 23:30 108 H 16 131/75 99 11/05/22 23:15 121/91 11/05/22 23:28 37.0 C 105 H 20 121/91 100 11/05/22 23:15 109 H 13 100 11/05/22 23:00 113 H 25 H 97 11/05/22 23:00 151/90 H 11/05/22 22:57 120 H 17 148/81 H 99 11/05/22 22:00 109 H 15 112/67 99 11/05/22 23:17 36.8 C 11/05/22 22:55 37 C 116 H 19 148/81 H 97 11/05/22 21:31 119 H 15 98 11/05/22 21:31 131/79 11/05/22 21:32 119 H O2 Del Method 11/06/22 06:50 11/06/22 06:20 11/06/22 06:05 11/06/22 05:47 11/06/22 02:25 Room Air 11/06/22 01:25 11/06/22 00:45 11/06/22 00:30 11/06/22 00:15 11/06/22 00:01 11/05/22 23:45 11/05/22 23:30 11/05/22 23:15 11/05/22 23:28 Room Air 11/05/22 23:15 11/05/22 23:00 11/05/22 23:00 11/05/22 22:57 Room Air 11/05/22 22:00 11/05/22 23:17 11/05/22 22:55 11/05/22 21:31 Room Air 11/05/22 21:31 11/05/22 21:32 PG Care Time/CCT Total # of Minutes Spent Total Time Spent with Patient: Total time spent is greater than 50% in coordination of care (as documented) at patient's floor/unit and/or counseling patient: Coding Level of Care Code 67875 SUB INP/OBS CARE 10/09MIN Diagnoses Abnormal vaginal bleeding N93.9 Symptomatic anemia D64.9
--- NOTE | 2022-11-06 09:07 | Ultrasound Report ---
PELVIC ULTRASOUND, TRANSABDOMINAL AND TRANSVAGINAL HISTORY: vaginal bleed COMPARISON: Pelvic ultrasound 10/03/2022. FINDINGS: Uterus: 10.2 x 3.2 x 7.0 cm. Multiple uterine fibroids are again noted with the largest measuring 3.2 cm. These appear to be intramural. However, the dominant posterior fibroid abuts the endometrium. Endometrial stripe: 5 mm in thickness. Right ovary: Normal in size and demonstrates normal color flow. Left ovary: Normal in size and demonstrates normal color flow. Miscellaneous:No pelvic free fluid. IMPRESSION: 1. Multiple uterine fibroids again noted. The majority of these fibroids appear to be intramural. The dominant uterine fibroid abuts the endometrium. 2. Normal ovaries. ACT 112: Negative or not required by law. Electronically signed by: Khoa Goldberg M.D. 11/06/2022 9:06 AM
[2022-11-06] MEDS: ESTROGENS, CONJUGATED 25 MG in SYRINGE 0 ML IV SCH ×3 (10:02→23:00)
--- NOTE | 2022-11-06 10:15 | Electrocardiogram Report ---
Test Reason : Blood Pressure : / mmHG Vent. Rate : 129 BPM Atrial Rate : 129 BPM P-R Int : 126 ms QRS Dur : 076 ms QT Int : 294 ms P-R-T Axes : 018 026 018 degrees QTc Int : 430 ms Sinus tachycardia Otherwise normal ECG When compared with ECG of 06-OCT-2022 05:25, No significant change was found Confirmed by Dominic Deleon ([id number]) on 11/06/2022 10:15:10 AM Referred By: REFERRED SELF Confirmed By:Sean Deleon
--- NOTE | 2022-11-06 12:42 | Neurology Consultation ---
Date of Consultation November 06, 2022 Assessment & Plan (1) Chronic headaches: Plan Discussed with pt about the estrogen and risk of stroke in pt with migraine with aura. pt gets occasional migraine with aura. A risk factor for ischemic stroke in pt with migraine with aura with use of longer term estrogen OCP has relative risk of 3. Do recommend no smoking and use of [id number] pills or progestogens only. it pt is on estrogen therapy to control bleed, short term use is ok but buttermaker continuous churn use is not recommended. answered all questions from the pt. History of Present Illness Attending Physician: Sherita De Santiago MD, FACOG Allergies Allergy/AdvReac Type Severity Reaction Status Date / Time nickel Allergy Intermediate Rash Verified 11/05/22 21:18 Home Medications Medication Instructions Recorded Confirmed Type ferrous sulfate 15 mg iron (75 1 ml PO BID #50 mL 10/03/22 11/05/22 Rx mg)/mL oral drops (Pee-In-Rosamaria) medroxyprogesterone 150 mg/mL 150 mg IM .q10wk #1 mL 10/08/22 11/05/22 Rx intramuscular suspension (Depo-Provera) levothyroxine 25 mcg tablet 25 mcg PO DAILY #90 tabs 10/09/22 11/05/22 Rx (Synthroid) Patient History Medical History ADHD Will be starting Adderall in near future Anemia secondary to bleeding from fibroids Anxiety Chronic headaches Depression Encounter for pre-operative examination Ovarian cyst PCOS (polycystic ovarian syndrome) Recently started on Metformin Scoliosis Mild Seasonal allergies Stress headaches Surgical History History of adenoidectomy History of myringotomy [place] teeth extracted Family History Mother History of anesthesia reaction difficulty breathing after anesthesia due to asthma> resolved during recovery. happened x1 Diabetes Denies family history of Ovarian cancer Prostate cancer Myocardial infarction Breast cancer Colorectal cancer Social History Smoking Status: Never smoker Second Hand Exposure: No; Hx Alcohol Use: No Hx Substance Use: No Preferred Language: Ecuadorean Communication Ability: Effective Reheater Helper Required: No Beliefs That Will Affect Care: None Current Living Situation: Alone Feels Safe at Home: Yes Safety Concerns: Feels Safe At This Time Assistive Devices: Glasses Results & Data ([facility]) Vital Signs (Past 12 Hours) Vital Signs Temp Pulse Pulse Resp BP BP Pulse Ox 11/06/22 12:00 36.6 C 96 H 20 142/78 H 99 11/06/22 08:50 37 C 96 H 18 137/70 98 11/06/22 07:50 36.7 C 108 H 20 134/71 99 11/06/22 07:50 36.7 C 108 H 20 134/71 99 11/06/22 06:50 36.8 C 101 H 18 131/69 99 11/06/22 06:20 36.7 C 105 H 18 134/71 100 11/06/22 06:05 36.7 C 102 H 18 124/71 100 11/06/22 05:47 37.0 C 102 H 20 121/64 100 11/06/22 02:25 36.6 C 98 H 18 124/68 100 11/06/22 01:25 110 H 11/06/22 00:45 107 H 16 115/71 99 O2 Del Method 11/06/22 12:00 Room Air 11/06/22 08:50 11/06/22 07:50 Room Air 11/06/22 07:50 11/06/22 06:50 11/06/22 06:20 11/06/22 06:05 11/06/22 05:47 11/06/22 02:25 Room Air 11/06/22 01:25 11/06/22 00:45
[2022-11-06 13:42] LABS: Hematocrit (blood only) 24.5 % (37.0-47.0); Hemoglobin 7.4 g/dl (12.0-16.0); Mean Corpuscular Hemoglobin 20.7 pg (25.0-34.0); Mean Corpuscular Hgb Conc 30.2 g/dL (32.0-36.0); Mean Corpuscular Volume 68.4 fL (80.0-100.0); Mean Platelet Volume 10.6 fL (9.4-12.4); Nucleated RBC # (auto) 0.13 K/uL (0-0.12); Nucleated RBC % (auto) 1.1 %; Platelet Count 330 K/uL (130-400); RDW Standard Deviation 62.8 fL (36.4-46.3); Red Blood Count 3.58 M/uL (4.20-5.40); White Blood Count 11.84 K/ul (4.8-10.8)
[2022-11-07] MEDS: LACTATED RINGER'S 1,000 ML IV SCH (05:20)
[2022-11-07] MEDS: LEVOTHYROXINE SODIUM 25 MCG TABLET PO SCH (06:21)
--- NOTE | 2022-11-07 08:58 | Gynecologic Progress Note ---
Date of Service November 07, 2022 Assessment & Plan (1) Abnormal vaginal bleeding: Plan: completed 4 units of packed red blood cells since admission. H&H pending for this morning. Patient is feeling well and denies concerns or anemia symptoms. Bleeding is minimal with only light spotting noted. discussed that patient is stable for discharge Pending a reasonable rise in H and H. discussed ongoing short-term management of bleeding continue observation versus an OCP at a low dose and short duration until more long-term management options are able to be obtained. Patient was agreeable to this plan and OCP will be sent to patient's pharmacy (2) Symptomatic anemia: Admission and Anticipated Discharge Date Admission Date: November 05, 2022 Subjective Patient feeling well today. Denying any anemia symptoms. Reported the bleeding has mostly stopped is only having very light spotting at present. patient had finished her 4th unit of packed red blood cells overnight and has and H&H pending for this morning. patient was seen by neurology yesterday discussed estrogen containing medications in the setting of complicated migraine headaches. Neurology recommended short-term use of estrogen containing medications for treatment of bleeding issues. Discussed that we would transition to a low dose OCP for the interim until we can arrange follow-up clinic care and determine long-term treatment options for bleeding. I discussed risks of estrogen containing medications in the setting of complicated migraines including risk of blood clots and stroke. Patient was agreeable to proceeding with the OCP for the short duration and low dose. Physical Exam Genitourinary: No bleeding noted Results & Data ([facility]) Vital Signs (Past 12 Hours) Vital Signs Temp Pulse Pulse Resp BP BP Pulse Ox 11/07/22 04:05 36.8 C 82 18 132/70 97 11/07/22 01:50 36.8 C 86 18 126/72 97 11/07/22 01:00 36.9 C 91 H 18 102/66 97 11/07/22 00:30 36.7 C 90 18 113/70 99 11/07/22 00:00 36.9 C 90 18 123/83 97 11/06/22 23:45 37.0 C 86 18 132/86 97 11/06/22 23:45 37.0 C 83 18 132/86 97 11/06/22 23:25 36.9 C 82 16 113/60 98 11/06/22 23:24 36.9 C 90 16 125/74 99 11/06/22 22:35 36.9 C 80 18 125/74 99 11/06/22 21:40 36.9 C 99 H 18 105/73 98 11/06/22 21:10 36.8 C 86 18 126/74 96 O2 Del Method 11/07/22 04:05 Room Air 11/07/22 01:50 11/07/22 01:00 11/07/22 00:30 11/07/22 00:00 11/06/22 23:45 Room Air 11/06/22 23:45 11/06/22 23:25 11/06/22 23:24 11/06/22 22:35 11/06/22 21:40 11/06/22 21:10 PG Care Time/CCT Total # of Minutes Spent Total Time Spent with Patient: Total time spent is greater than 50% in coordination of care (as documented) at patient's floor/unit and/or counseling patient: Coding Level of Care Code 96294 SUB INP/OBS CARE MIN Diagnoses Abnormal vaginal bleeding N93.9 Symptomatic anemia D64.9
[2022-11-07 09:08] LABS: Hematocrit (blood only) 28.2 % (37.0-47.0); Hemoglobin 8.8 g/dl (12.0-16.0)
== END 2022-11-07 14:15 | disposition home or self-care (01) ==
LOC: 4E1 19:12 → ED 19:12 → 4E1 11-06 02:08

== ENCOUNTER 2024-06-30 16:59 | Observation (INO) ==
--- NOTE | 2024-06-30 18:13 | Emergency Department Note ---
Impression & Plan Leukocytosis, Anemia ED Provider Note NAME: SERENITY REDDY AGE: 29 SEX: F : 1995 ARRIVES VIA: Walk-In INFORMANT: Patient ED PROVIDER(S): Dc Westbrook DO CHIEF COMPLAINT: Staring off episodes, syncope HPI: Patient is a 29-year-old female with a past medical history of anxiety, depression, migraines, anemia, ADHD, PCOS with complete hysterectomy who presents to the ER as she was driving around on Friday night and she did not know where she was or what was going on. The was able to track her down and brought her home. Since then she has had several episodes where she just stares off in space for up to several minutes. Today she had an episode where she vomited and she passed out while vomiting. She has no belly pain. She admits to no change or loss of vision. No chest pain or shortness of breath. No dysuria, urgency, or frequency. No other exacerbating or remitting factors. ADDITIONAL HISTORY OBTAINED: Per HPI Chronic Medical/Social Conditions Affecting Care: Per HPI PAST MEDICAL HISTORY:See Below PAST SURGICAL HISTORY:See Below FAMILY HISTORY:See Below SOCIAL HISTORY:See Below HOME MEDICATIONS:See Below ALLERGIES:See Below VITALS:See Below PHYSICAL EXAMINATION: GENERAL: Sitting up in bed, alert, well appearing, well nourished, no distress, non-toxic EYE EXAM: normal conjunctiva. PERRL and EOM's intact. OROPHARYNX: no exudate, no erythema, lips, buccal mucosa, and tongue normal and mucous membranes are moist NECK: supple, no nuchal rigidity, no adenopathy, non-tender LUNGS: Clear to auscultation. Normal chest wall mechanics HEART: no murmurs, S1 normal and S2 normal ABDOMEN: abdomen soft, non-tender, normo-active bowel sounds, no masses, no rebound or guarding. BACK: Back is symmetrical on inspection and there is no deformity, no midline tenderness, no CVA tenderness. SKIN: no rashes and no bruising UPPER EXTREMITIES: upper extremities are grossly normal. LOWER EXTREMITIES: No pitting edema. NEURO EXAM: Normal sensorium, cranial nerves II-XII intact, normal speech, no weakness of arms, no weakness of legs. No drift. Finger to nose intact. Gross sensation intact. MEDICAL DECISION MAKING: Patient is a 29-year-old female who presents ER for the above-stated complaint. IV was established medicos obtained. Labs show faint leukocytosis 11.9 thousand. Mild anemia 11.9. INR unremarkable. BMP with TSH was unremarkable. hCG was negative. Troponin negative. UA clean. Tox was negative. Alcohol negative. CT angios of the head neck were negative. Chest x-ray was negative. She has a past medical history of transient cerebral ischemia. She had an episode here where a CODE BLUE was called. I was able to catch this episode at the end. She was sitting up in bed staring straight ahead. She was not moving but was breathing. She had a pulse. Used my finger and her eye and she moved her head away and then started talking with this. I do not feel this is consistent with seizures but I do think it is reasonable at this time as she is having these episodes frequently to have her admitted and watched and have an EEG especially as the does not feel he can take her home. Patient is completely neurologically intact. She is updated bedside. Discussed with the hospitalist for further evaluation management treatment. Consults/Care Managements Discussions: Per [facility] Triage Nursing notes reviewed. Limited review of prior medical records performed Vital Signs: reviewed and remarkable for HTN Differential diagnosis: Differential Diagnosis includes but is not limited to ischemic Stroke, hemorrhagic stroke, bells palsy, mass, neoplasm, migraine headache, seizure, subarachnoid hemorrhage, TIA, and transient global amnesia. ER treatment provided: See below Diagnostics interpreted by me include EKG and cardiac monitoring as listed below: -Cardiac Monitoring: An order was placed for continuous cardiac monitoring. The monitor shows a rate of 90 with sinus rhythm. -ECG: Sinus rhythm rate of 74 Normal axis No PVCs QTc 421 -Laboratory studies:Interpreted by me as stated above in [facility] and shown below. Imaging studies: Xrays: As interpreted by me: Portable AP upright 1 view of the chest shows no focal Lutrate CTs show: CT angios of the head and neck were negative Procedures:none Critical Care: None Past Med/Surg History Problem List (Updated 06/30/24 @ 21:36 by Dc Westbrook DO) Anemia (Acute) Leukocytosis (Acute) Eczema Daytime somnolence Insomnia ADHD Anxiety and depression Splenomegaly Migraine with aura Hypothyroidism Severe anemia (Acute) Iron deficiency (Acute) Transient cerebral ischemia (Acute) Stroke-like symptoms 04/2021 TIA + stroke ruled out (evaluated at [facility]), "complicated migraine" per inpatient neurology consult PCOS (polycystic ovarian syndrome) Medical History (Updated 06/30/24 @ 21:36 by Dc Westbrook DO) COVID-19 virus infection Morbid obesity History of COVID-19 04/2021- mild symptoms Abnormal vaginal bleeding Fibroids s/p abdominal myomectomy. Uncomplicated post-operative course Scoliosis Mild Anemia Secondary to bleeding from fibroids Hx several blood transfusions (most recently 4U PRBC 11/2022) Depression Anxiety Seasonal allergies Ovarian cyst Hx Surgical History H/O hysterectomy for benign disease Fibroids, menorrhagia. Likely endometriosis visualized during surgery. Retains ovaries. S/P myomectomy Lucile teeth extracted History of myringotomy History of adenoidectomy Family History Mother History of anesthesia reaction Diabetes Denies family history of Ovarian cancer Prostate cancer Myocardial infarction Breast cancer Colorectal cancer Social History Smoking Status: Never smoker Second Hand Exposure: No; Do You Dip or Chew Tobacco: No; Hx Alcohol Use: No Hx Substance Use: No Preferred Language: Maltese Communication Ability: Effective Visual Impairment: No Limitations Hearing Ability: Normal Endorsement Clerk Required: No Beliefs That Will Affect Care: None marital status: Single Current Living Situation: Alone current occupational status: employed 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 Feels Safe at Home: Yes Diet: regular caffeine: Yes during the past year weight has: increased > 10 lbs Dental Care, Regularly: Yes Physical Activity Frequency: 5-6 Times per Week Seatbelt Use: always Sunscreen Use: Yes Assistive Devices: Contacts and Glasses Allergies Allergies Allergy/AdvReac Type Severity Reaction Status Date / Time nickel Allergy Intermediate Rash Verified 06/30/24 21:01 No Known Drug Allergies Allergy Verified 06/30/24 21:01 Home Meds Previous Rx's Medication Instructions Recorded levothyroxine 25 mcg tablet 25 mcg PO DAILY #90 tabs 02/14/23 (Synthroid) dicyclomine 20 mg tablet 20 mg PO QID PRN abdominal pain 12/05/23 #20 tabs cholecalciferol (vitamin D3) 1,250 50,000 unit PO WEEKLY 8 weeks #8 01/26/24 mcg (50,000 unit) capsule caps albuterol sulfate 90 mcg/actuation 2 puff inhalation Q6H PRN 02/03/24 aerosol inhaler shortness of breath or wheezing #18 grams betamethasone valerate 0.1 % 1 applic topical BID PRN skin 02/16/24 topical cream irritation #45 grams escitalopram oxalate 10 mg tablet 10 mg PO DAILY #90 tabs 02/16/24 hydroxyzine HCl 10 mg tablet 10 mg PO TID PRN anxiety #30 tabs 02/16/24 magnesium glycinate 400 mg (4 x 100 mg magnesium) PO 04/07/24 DAILY #30 caps riboflavin (vitamin B2) 400 mg 400 mg PO DAILY #30 tabs 04/07/24 tablet rizatriptan 10 mg disintegrating See Rx Instructions PO .COMPLEX 30 04/07/24 tablet days #9 tabs topiramate 25 mg tablet (Topamax) 25 mg PO DAILY 90 days #90 tabs 04/07/24 rimegepant 75 mg disintegrating See Rx Instructions .Route 05/13/24 tablet (Nurtec ODT) .COMPLEX #8 tabs penicillin V potassium 500 mg 500 mg PO BID 10 days #20 tabs 05/28/24 tablet Results & Data (ED) Vital Signs Vital Signs - 24 hr 06/30/24 17:14 06/30/24 18:17 06/30/24 18:58 Temperature 36.6 C Temperature Source Temporal Artery Scan Pulse Rate 86 65 67 Pulse Rate [Apical] Pulse Rhythm [Apical] Respiratory Rate 18 18 Respiratory Effort / Characteristics Non-Labored Respiratory Depth Normal Respiratory Pattern Regular Blood Pressure 145/93 H Blood Pressure [Left Arm] Blood Pressure Mean 110 Blood Pressure Mean [Left Arm] Pulse Oximetry 99 100 Oxygen Delivery Method Room Air Room Air Sepsis Recent Fever Within 48 Hours No Sepsis New/Unexplained Change in Mental Status N/A Sepsis Action Taken by Nursing No Action Required 06/30/24 19:02 06/30/24 19:30 06/30/24 21:00 Temperature Temperature Source Pulse Rate Pulse Rate [Apical] 79 78 Pulse Rhythm [Apical] Regular Respiratory Rate 17 17 Respiratory Effort / Characteristics Non-Labored Spontaneous Non-Labored Spontaneous Respiratory Depth Normal Normal Respiratory Pattern Regular Regular Blood Pressure Blood Pressure [Left Arm] 165/97 H 137/84 Blood Pressure Mean Blood Pressure Mean [Left Arm] 119 101 Pulse Oximetry 100 99 Oxygen Delivery Method Room Air Room Air Room Air Sepsis Recent Fever Within 48 Hours Sepsis New/Unexplained Change in Mental Status Sepsis Action Taken by Nursing Laboratory Data 06/30/24 18:07 06/30/24 18:07 Lab Results 06/30/24 06/30/24 06/30/24 Range/Units 18:00 18:07 18:40 WBC 11.95 H (4.8-10.8) K/ul RBC 5.81 H (4.20-5.40) M/uL Hgb 11.9 L (12.0-16.0) g/dl Hct 40.0 (37.0-47.0) % MCV 68.8 L (80.0-100.0) fL MCH 20.5 L (25.0-34.0) pg MCHC 29.8 L (32.0-36.0) g/dL RDW Std Deviation 44.8 (36.4-46.3) fL RDW Coeff of Ashley 19.5 H (11.5-14.5) % Plt Count 309 (130-400) K/uL MPV 10.1 (9.4-12.4) fL Immature Gran % (Auto) 0.3 % Neut % (Auto) 74.8 % Lymph % (Auto) 17.1 % [place] % (Auto) 5.5 % Eos % (Auto) 1.7 % Baso % (Auto) 0.6 % Neut # (Auto) 8.94 H (1.40-6.50) K/uL Lymph # (Auto) 2.04 (1.20-3.40) K/uL [place] # (Auto) 0.66 H (0.11-0.59) K/uL Eos # (Auto) 0.20 (0.00-0.50) K/uL Baso # (Auto) 0.07 (0.00-0.20) K/uL Immature Gran # (Auto) 0.04 (0.01-0.20) K/uL Polychromasia 1+ Microcytosis Present Ovalocytes 1+ PT 10.3 (9.0-12.0) Seconds INR 0.9 (0.9-1.1) APTT 21 (21-31) Seconds PTT Ratio 0.8 Sodium 138 (136-145) mmol/L Potassium 3.9 (3.5-5.1) mmol/L Chloride 105 (98-107) mmol/L Carbon Dioxide 26 (21-32) mmol/L Anion Gap 7 (3-11) BUN 13 (6-23) mg/dl Creatinine 0.61 (0.6-1.2) mg/dl Est Cr Clr Drug Dosing 175.9 ml/min eGFR 124.03 BUN/Creatinine Ratio 21.3 H (10-20) Glucose 83 (70-99(Fasting)) mg/dl Calcium 9.6 (8.6-10.3) mg/dl Magnesium 1.8 (1.7-2.4) mg/dl Total Bilirubin 0.3 (0.2-1.0) mg/dl AST 15 (13-39) U/L ALT 14 (7-52) U/L Alkaline Phosphatase 82 (34-104) U/L Troponin I High Sens 4.0 (0-14) pg/ml Total Protein 7.2 (6.0-8.3) gm/dl Albumin 4.3 (3.4-5.0) gm/dl Globulin 2.9 (2.5-4.0) gm/dl Albumin/Globulin Ratio 1.5 (0.9-2) TSH 2.512 (0.300-4.500) uIu/ml HCG, Qual Negative (Negative) Urine Color Yellow Urine Appearance Clear (Clear) Urine pH 6.0 (4.5-7.5) Ur Specific Page 1.016 (1.000-1.030) Urine Protein Negative (Negative) Urine Glucose (UA) Negative (Negative) Urine Ketones Negative (Negative) Urine Blood Negative (Negative) Urine Nitrite Negative (Negative) Urine Bilirubin Negative (Negative) Urine Urobilinogen Negative (Negative) Ur Leukocyte Esterase Trace H (Negative) Urine WBC (Auto) 0-5 (0-5) /hpf Urine RBC (Auto) 0-2 (0-2) /hpf U Hyaline Cast (Auto) 0-2 (0-2) /lpf U Epithel Cells (Auto) 0-2 (0-2) /hpf Urine Bacteria (Auto) None Seen (None Seen) Urine Opiates Screen Neg (Neg) Ur Methadone, Qual Neg (Neg) Urine Fentanyl Screen Neg (Neg) Urine Barbiturates Neg (Neg) Ur Phencyclidine (PCP) Neg (Neg) U Amphetamin/Meth Scrn Neg (Neg) MDMA (Ecstasy) Screen Neg (Neg) U Benzodiazepines Scrn Neg (Neg) Ur Cocaine Metabolite Neg (Neg) U Marijuana (THC) Screen Neg (Neg) Ethyl Alcohol mg/dL < 10.0 (<10.0) mg/dl Administered Medications Lorazepam (Lorazepam 2 Mg/1 Ml Vial) 1 mg IV ONE PRN PRN Reason: ANXIETY / PRIOR TO MRI Stop: 07/01/24 20:45 Last Admin: 06/30/24 21:03 Dose: 1 mg Documented By: MARYS Discontinued Medications Ioversol (Optiray 320 125ml) 118 ml IV ONCE ONE Stop: 06/30/24 18:29 Last Admin: 06/30/24 18:29 Dose: 118 ml Documented By: YUAN Imaging Data Radiologist's Impression: Head CTA 06/30/24 18:09 CT angio head wo/w, CT angio neck with con CLINICAL HISTORY: 29 years-old Female with dizzy. Acute dizziness COMPARISON STUDY: Head CT 01/18/2024 TECHNIQUE: Unenhanced axial CT scan of the brain is performed. Subsequently, following the IV administration of 118 cc of Optiray, CT angiogram of the head and neck was performed. Images are reviewed in the axial, sagittal, and coronal planes. 3-D MIPS images are created and assessed. IV contrast was administered without complication. All measurements were obtained according to NASCET criteria. A dose lowering technique was utilized adhering to the principles of ALARA. CT DOSE: 1043.3 mGy.cm FINDINGS: CT BRAIN: There is no acute intracranial hemorrhage, midline shift, hydrocephalus, intracranial mass, territorial ischemia or abnormal extra-axial collections. No abnormal intra-axial or extra-axial enhancement. Vadim cisterna magna redemonstrated. Mastoid air cells and middle ear cavities are clear. No calvarial fracture. Paranasal sinuses are clear. CT ANGIOGRAM OF THE HEAD AND NECK: Three-vessel morphology of the thoracic aortic arch. Patency of the innominate and images including arteries. The common and internal carotid arteries are widely patent. The bilateral anterior and middle cerebral arteries are also patent. The vertebrobasilar system and posterior cerebral arteries are widely patent. There is no aneurysm, high-grade stenosis, or proximal branch occlusion identified. Dural sinuses appear patent. Lung apices are clear. No pneumothorax. Unremarkable soft tissues. Subcentimeter lymph nodes are likely benign. No acute fracture. There is reversal of the normal cervical lordosis. IMPRESSION: 1. No acute intracranial abnormality. 2. Unremarkable CTA of the head and neck. ACT 112: Negative or not required by law. The above report was generated using voice recognition software. It may contain grammatical, syntax or spelling errors. Electronically signed by: Rom Kevin M.D. 06/30/2024 7:01 PM Neck CTA 06/30/24 18:09 CT angio head wo/w, CT angio neck with con CLINICAL HISTORY: 29 years-old Female with dizzy. Acute dizziness COMPARISON STUDY: Head CT 01/18/2024 TECHNIQUE: Unenhanced axial CT scan of the brain is performed. Subsequently, following the IV administration of 118 cc of Optiray, CT angiogram of the head and neck was performed. Images are reviewed in the axial, sagittal, and coronal planes. 3-D MIPS images are created and assessed. IV contrast was administered without complication. All measurements were obtained according to NASCET criteria. A dose lowering technique was utilized adhering to the principles of ALARA. CT DOSE: 1043.3 mGy.cm FINDINGS: CT BRAIN: There is no acute intracranial hemorrhage, midline shift, hydrocephalus, intracranial mass, territorial ischemia or abnormal extra-axial collections. No abnormal intra-axial or extra-axial enhancement. Vadim cisterna magna redemonstrated. Mastoid air cells and middle ear cavities are clear. No calvarial fracture. Paranasal sinuses are clear. CT ANGIOGRAM OF THE HEAD AND NECK: Three-vessel morphology of the thoracic aortic arch. Patency of the innominate and images including arteries. The common and internal carotid arteries are widely patent. The bilateral anterior and middle cerebral arteries are also patent. The vertebrobasilar system and posterior cerebral arteries are widely patent. There is no aneurysm, high-grade stenosis, or proximal branch occlusion identified. Dural sinuses appear patent. Lung apices are clear. No pneumothorax. Unremarkable soft tissues. Subcentimeter lymph nodes are likely benign. No acute fracture. There is reversal of the normal cervical lordosis. IMPRESSION: 1. No acute intracranial abnormality. 2. Unremarkable CTA of the head and neck. ACT 112: Negative or not required by law. The above report was generated using voice recognition software. It may contain grammatical, syntax or spelling errors. Electronically signed by: Rom Kevin M.D. 06/30/2024 7:01 PM Discharge Plan Visit Data Chief Complaint: Syncope Stated Complaint: SYNCOPE, ARMS TINGLE, FEELS LIKE BRAIN IS ZAPPED ED Provider: Dc Westbrook Discharge Problem: Leukocytosis, Anemia Forms Stand Alone Forms: My [facility] Prescriptions Prescriptions: No Action cholecalciferol (vitamin D3) 1,250 mcg (50,000 unit) capsule 50,000 unit PO WEEKLY 56 Days Qty: 8 0RF Nurtec ODT 75 mg tablet,disintegrating See Rx Instructions .ROUTE .COMPLEX Qty: 8 5RF Dose Instruction: TAKE ONE TABLET BY MOUTH AT ONSET of migraine Rx Instructions: TAKE ONE TABLET BY MOUTH AT ONSET of migraine levothyroxine [Synthroid] 25 mcg tablet 25 mcg PO DAILY Qty: 90 3RF hydroxyzine HCl 10 mg tablet 10 mg PO TID PRN (Reason: anxiety) Qty: 30 2RF escitalopram oxalate 10 mg tablet 10 mg PO DAILY Qty: 90 2RF betamethasone valerate 0.1 % cream 1 applic topical BID PRN (Reason: skin irritation) Qty: 45 4RF Rx Instructions: Only uses during the winter season rizatriptan 10 mg tablet,disintegrating See Rx Instructions PO .COMPLEX 30 Days Qty: 9 2RF Rx Instructions: take 1 tab at onset of headache; if no relief may repeat 1 tab after at least 2 hrs; max = 3 tabs/24 hr PO topiramate [Topamax] 25 mg tablet 25 mg PO DAILY 90 Days Qty: 90 3RF Rx Instructions: Take 25mg nightly for the first 7 nights, then increase to 50mg thereafter magnesium glycinate 100 mg magnesium capsule 400 mg PO DAILY Qty: 30 0RF riboflavin (vitamin B2) 400 mg tablet 400 mg PO DAILY Qty: 30 0RF albuterol sulfate 90 mcg/actuation HFA aerosol inhaler 2 puff inhalation Q6H PRN (Reason: shortness of breath or wheezing) Qty: 18 3RF penicillin V potassium 500 mg tablet 500 mg PO BID 10 Days Qty: 20 0RF dicyclomine 20 mg tablet 20 mg PO QID PRN (Reason: abdominal pain) Qty: 20 0RF Referrals Referrals: James Montesinos CRNP [Primary Care Provider] - Discharge Problem: Leukocytosis Qualifiers: Leukocytosis type: unspecified Qualified Code(s): D72.829 - Elevated white blood cell count, unspecified Anemia Qualifiers: Anemia type: unspecified type Qualified Code(s): D64.9 - Anemia, unspecified
[2024-06-30 18:21] LABS: Appearance Urine Clear (Clear); Bacteria Urine Automated None Seen (None Seen); Bilirubin Urine Negative (Negative); Blood Urine Negative (Negative); Cast Urine Automated 0-2 /lpf (0-2); Color Urine Yellow; Epithelial Cell Urine Auto 0-2 /hpf (0-2); Glucose Urine UA Negative (Negative); Ketones Urine Negative (Negative); Leukocyte Esterase Urine Trace (Negative); Nitrite Urine Negative (Negative); Protein Urine Negative (Negative); RBC Urine Automated 0-2 /hpf (0-2); Specific Gravity Urine 1.016 (1.000-1.030); Urobilinogen Urine Negative (Negative); WBC Urine Automated 0-5 /hpf (0-5)
[2024-06-30 18:26] LABS: Basophils # (auto) 0.07 K/uL (0.00-0.20); Basophils % (auto) 0.6 %; Eosinophils % (auto) 1.7 %; Hemoglobin 11.9 g/dl (12.0-16.0); Immature Granulocytes # (auto) 0.04 K/uL (0.01-0.20); Immature Granulocytes % (auto) 0.3 %; Lymphocytes # (auto) 2.04 K/uL (1.20-3.40); Lymphocytes % (auto) 17.1 %; Mean Corpuscular Hemoglobin 20.5 pg (25.0-34.0); Mean Corpuscular Hgb Conc 29.8 g/dL (32.0-36.0); Mean Corpuscular Volume 68.8 fL (80.0-100.0); Monocytes # (auto) 0.66 K/uL (0.11-0.59); Monocytes % (auto) 5.5 %; Neutrophils # (auto) 8.94 K/uL (1.40-6.50); Neutrophils % (auto) 74.8 %; RDW Coefficient of Variation 19.5 % (11.5-14.5); RDW Standard Deviation 44.8 fL (36.4-46.3); Red Blood Count 5.81 M/uL (4.20-5.40); White Blood Count 11.95 K/ul (4.8-10.8)
[2024-06-30] MEDS: OPTIRAY 320 125ml IV ONE (18:29)
[2024-06-30 18:33] LABS: Mean Platelet Volume 10.1 fL (9.4-12.4); Platelet Count 309 K/uL (130-400)
[2024-06-30 18:37] LABS: Pregnancy Test, Serum Negative (Negative)
[2024-06-30 18:39] LABS: Amphetamines+Metham, Urine Neg (Neg); Barbiturates, Urine Neg (Neg); Benzodiazepine, Urine Neg (Neg); Cocaine, Urine Neg (Neg); Fentanyl, Urine Neg (Neg); MDMA (Ecstacy), Urine Neg (Neg); Marijuana, Urine Neg (Neg); Methadone, Urine Neg (Neg); Opiate, Urine Neg (Neg); Phencyclidine, Urine Neg (Neg)
[2024-06-30 18:44] LABS: Microcytosis Present; Ovalocytes 1+; Polychromasia 1+
[2024-06-30 18:45] LABS: Albumin Globulin Ratio 1.5 (0.9-2); Albumin Level 4.3 gm/dl (3.4-5.0); BUN Creatinine Ratio 21.3 (10-20); Bilirubin,Total 0.3 mg/dl (0.2-1.0); Calcium 9.6 mg/dl (8.6-10.3); Creatinine Clr Calc Pharmacy 175.9 ml/min; Globulin 2.9 gm/dl (2.5-4.0); Magnesium 1.8 mg/dl (1.7-2.4); Potassium 3.9 mmol/L (3.5-5.1); Total Protein 7.2 gm/dl (6.0-8.3)
[2024-06-30 18:57] LABS: INR 0.9 (0.9-1.1); Partial Thromboplastin Ratio 0.8; Partial Thromboplastin Time 21 Seconds (21-31); Prothrombin Time 10.3 Seconds (9.0-12.0)
[2024-06-30 19:00] LABS: Thyroid Stimulating Hormone 2.512 uIu/ml (0.300-4.500)
--- NOTE | 2024-06-30 19:04 | CT Scan Report ---
CT angio head wo/w, CT angio neck with con CLINICAL HISTORY: 29 years-old Female with dizzy. Acute dizziness COMPARISON STUDY: Head CT 01/18/2024 TECHNIQUE: Unenhanced axial CT scan of the brain is performed. Subsequently, following the IV adminis tration of 118 cc of Optiray, CT angiogram of the head and neck was performed. Images are reviewed in the axial, sagittal, and coronal planes. 3-D MIPS images are created and assessed. IV contrast was a dministered without complication. All measurements were obtained according to NASCET criteria. A dose lowering technique was utilized adhering to the principles of ALARA. CT DOSE: 1043.3 mGy.cm FINDINGS: CT BRAIN: There is no acute intracranial hemorrhage, midline shift, hydrocephalus, intracranial mass, territori al ischemia or abnormal extra-axial collections. No abnormal intra-axial or extra-axial enhancement. Vadim cisterna magna redemonstrated. Mastoid air cells and middle ear cavities are clear. No calvarial fracture. Paranasal sinuses are clear. CT ANGIOGRAM OF THE HEAD AND NECK: Three-vessel morphology of the thoracic aortic arch. Patency of the innominate and images including a rteries. The common and internal carotid arteries are widely patent. The bilateral anterior and middl e cerebral arteries are also patent. The vertebrobasilar system and posterior cerebral arteries are w idely patent. There is no aneurysm, high-grade stenosis, or proximal branch occlusion identified. Dur al sinuses appear patent. Lung apices are clear. No pneumothorax. Unremarkable soft tissues. Subcentimeter lymph nodes are like ly benign. No acute fracture. There is reversal of the normal cervical lordosis. IMPRESSION: 1. No acute intracranial abnormality. 2. Unremarkable CTA of the head and neck. ACT 112: Negative or not required by law. The above report was generated using voice recognition software. It may contain grammatical, syntax o r spelling errors. Electronically signed by: Rom Kevin M.D. 06/30/2024 7:01 PM
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
[2024-06-30] MEDS: LORazepam 2 MG/1 ML VIAL IV PRN (21:03)
[2024-06-30 21:34] VITALS: O2SAT 97
[2024-06-30] MEDS ORDERED: ONDANSETRON INJ 2 MG/ML 2 ML VIAL IV PRN (22:08)
[2024-06-30] MEDS: ACETAMINOPHEN 325 MG TAB PO PRN (22:25)
--- NOTE | 2024-06-30 23:33 | Magnetic Resonance Report ---
Exam(s): MRI OTHER Without Contrast EXAM: MR Head Without Intravenous Contrast CLINICAL HISTORY: Reason for exam: staring episodes. TECHNIQUE: Magnetic resonance images of the head/brain without intravenous contrast in multiple planes. COMPARISON: March 05, 2021 FINDINGS: Brain: Unremarkable. No mass. No hemorrhage. No acute infarct. Ventricles: Unremarkable. No ventriculomegaly. Bones/joints: Unremarkable. No acute fracture. Sinuses: Unremarkable as visualized. No acute sinusitis. Mastoid air cells: Unremarkable as visualized. No mastoid effusion. Orbits: Unremarkable as visualized. IMPRESSION: Normal head/brain MRI. Electronically signed by: Dc Escalante MD 06/30/24 23:32 PM
[2024-07-01] MEDS ORDERED: ALBUTEROL HFA 8 GM INHALER INH PRN (00:09)
[2024-07-01] MEDS: LEVOTHYROXINE SODIUM 25 MCG TABLET PO SCH (05:40)
[2024-07-01 07:02] LABS: Hematocrit (blood only) 36.9 % (37.0-47.0); Hemoglobin 11.2 g/dl (12.0-16.0); Mean Corpuscular Hemoglobin 20.8 pg (25.0-34.0); Mean Corpuscular Hgb Conc 30.4 g/dL (32.0-36.0); Mean Corpuscular Volume 68.5 fL (80.0-100.0); Mean Platelet Volume 10.5 fL (9.4-12.4); Platelet Count 338 K/uL (130-400); RDW Standard Deviation 45.1 fL (36.4-46.3); Red Blood Count 5.39 M/uL (4.20-5.40)
--- NOTE | 2024-07-01 07:08 | XRay Report ---
XR chest 1V portable CLINICAL HISTORY: Syncope. COMPARISON STUDY: Chest radiograph October 05, 2022. FINDINGS: Lung volumes are normal. Lungs are clear. There is no pneumothorax or pleural effusion. Car diac size is normal. Mediastinal contours are normal. There is no evidence for pulmonary edema. IMPRESSION: No acute cardiopulmonary findings. ACT 112: Negative or not required by law. Electronically signed by: Jacoby Quan M.D. 07/01/2024 7:06 AM
[2024-07-01 07:25] LABS: BUN Creatinine Ratio 20.3 (10-20); Calcium 8.9 mg/dl (8.6-10.3); Creatinine Clr Calc Pharmacy 180.7 ml/min; Potassium 3.9 mmol/L (3.5-5.1)
[2024-07-01 07:55] VITALS: BP 140/82; PULSE 70; RESP 16; TEMP 97.9
[2024-07-01] MEDS: ESCITALOPRAM OXALATE 10 MG TAB PO SCH (08:18)
[2024-07-01] MEDS: TOPIRAMATE 25 MG TAB PO SCH (08:18)
[2024-07-01] MEDS ORDERED: NON-FORMULARY MEDICATION (Magnesium Glycinate 100 mg magnesium capsule) PO SCH (09:00)
[2024-07-01] MEDS: hydrOXYzine HCl 10 MG TAB PO PRN (09:30)
--- NOTE | 2024-07-01 09:51 | Neurology Consultation ---
Date of Consultation July 01, 2024 Assessment & Plan (1) Unresponsive episode: (2) Migraine with aura: Plan 29-year-old female with a history of migraine with aura presenting with recurrent unusual episodes of unresponsiveness. The first episode occurred 3 nights ago during which time she left her home and drove to a nearby gas station, no recollection for this event, was found by her partner sitting upright in her vehicle, staring, unresponsive. She has had several other similar episodes of sudden onset unresponsiveness without obvious loss of consciousness or other neurologic signs and symptoms. She has no prior history of similar episodes or seizures. Her history is notable for recent group A streptococcal infection. 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 This patient's general medical evaluation does not reveal any obvious immediate causes for these episodes. She has a chronic anemia and borderline vitamin B12 deficiency. Her urine toxicology screen is unremarkable. CT angiography of the head and neck and brain MRI are normal as well. I agree with obtaining a routine EEG. If this study is unrevealing, however, would recommend 3-day ambulatory EEG monitoring. We can arrange this testing in the outpatient clinic. Given that she has recently started topiramate for her migraines, I would recommend increasing her dosage of topiramate to 50 mg twice daily. Topiramate may be used for both migraine prevention as well as for seizures. Of course, seizures have not been formally diagnosed in this patient at this time. Going forward, the dosage of topiramate may be increased further depending on her clinical status. History of Present Illness Reason for Consultation: chanda fong Requesting Physician: Karen Attending Physician: Patti Lawler MD History of Present Illness The patient is a 29-year-old female with a history of of migraine with aura, I had seen her as an outpatient in clinic in April 2023. She has a history of a complicated migraine episode that occurred in 2020 characterized by transient unilateral numbness and weakness, an extensive stroke evaluation at that time was unremarkable. History also notable for polycystic ovarian syndrome, anemia due to menstrual blood loss, hysterectomy, PCOS, hyperinsulinemia, depression, anxiety, and ADD. She saw Dr. Corry Angel in our clinic for a second opinion regarding her migraines on April 07, 2024 and was started on topiramate for migraine prevention and given a prescription for rizatriptan for acute migraine treatment. She saw her PCP on May 28, 2024 and was treated for strep throat, given a prescription for penicillin. The patient presented to the emergency department last night for further assessment of some unusual symptoms beginning recently. The patient informs me that this past Friday evening she apparently left her home, got into her car, and drove to a nearby gas station about [address] Her partner apparently saw her leave on third doorbell camera. She has no recollection for this event. Her partner apparently found her in the car, staring straight ahead, rocking back and forth. She apparently had some recollection of this event as she remembers hearing his voice, although it was somewhat muffled, as if she was in a tunnel. She was apparently confused for several minutes afterwards. There was no obvious collapse, stiffening or shaking of the limbs. Prior to this episode, she reports that she was feeling well, normal day at work. The following day was fairly normal for her. However, on Friday she began having additional episodes characterized by staring straight ahead, unres ponsive, again, no collapse or obvious loss of consciousness. The patient shows me to videos of these episodes. The first episode occurred while she was in the waiting room of the emergency department. She appears to be sitting up comfortably in a chair, eyes open, no gaze deviation or obvious abnormal eye movements. No obvious abnormal movements of the facial musculature or limbs. The episode lasted for about a minute or so and resolved. The second episode occurred while in a hospital bed, very similar to the previous documented spell. The patient does not have any known prior history of seizure disorder. No known family history of epilepsy although her father, sister, and 2 nieces have neurofibromatosis type I. The patient indicates that she has never been personally tested for NF1 although she reports some inguinal freckling. No axillary lesions, no other obvious stigmata of NF type I. Other than the recent streptococcal infection, no other obvious provoking factors. She denies significant stress or significant anxiety at this time. She had an unremarkable CTA of the head and neck yesterday. A follow-up brain MRI, seizure protocol, was unremarkable as well. I independently reviewed these images. Brain parenchyma normal, no abnormal white matter hyperintensities, no hydrocephalus, no acute or subacute stroke, no mesial temporal sclerosis, no obvious seizure focus. Allergies Allergy/AdvReac Type Severity Reaction Status Date / Time nickel Allergy Intermediate Rash Verified 06/30/24 21:01 No Known Drug Allergies Allergy Verified 06/30/24 21:01 Home Medications Medication Instructions Recorded Confirmed Type levothyroxine 25 mcg tablet 25 mcg PO DAILY #90 tabs 02/14/23 06/30/24 Rx (Synthroid) dicyclomine 20 mg tablet 20 mg PO QID PRN abdominal pain 12/05/23 06/30/24 Rx #20 tabs cholecalciferol (vitamin D3) 1,250 50,000 unit PO WEEKLY 8 weeks #8 01/26/24 06/30/24 Rx mcg (50,000 unit) capsule caps albuterol sulfate 90 mcg/actuation 2 puff inhalation Q6H PRN 02/03/24 06/30/24 Rx aerosol inhaler shortness of breath or wheezing #18 grams betamethasone valerate 0.1 % 1 applic topical BID PRN skin 02/16/24 06/30/24 Rx topical cream irritation #45 grams escitalopram oxalate 10 mg tablet 10 mg PO DAILY #90 tabs 02/16/24 06/30/24 Rx hydroxyzine HCl 10 mg tablet 10 mg PO TID PRN anxiety #30 tabs 02/16/24 06/30/24 Rx magnesium glycinate 400 mg (4 x 100 mg magnesium) PO 04/07/24 06/30/24 Rx DAILY #30 caps riboflavin (vitamin B2) 400 mg 400 mg PO DAILY #30 tabs 04/07/24 05/28/24 Rx tablet rizatriptan 10 mg disintegrating See Rx Instructions PO .COMPLEX 30 04/07/24 05/28/24 Rx tablet days #9 tabs topiramate 25 mg tablet (Topamax) 25 mg PO DAILY 90 days #90 tabs 04/07/24 05/28/24 Rx rimegepant 75 mg disintegrating See Rx Instructions .Route 05/13/24 05/28/24 Rx tablet (Nurtec ODT) .COMPLEX #8 tabs penicillin V potassium 500 mg 500 mg PO BID 10 days #20 tabs 05/28/24 05/28/24 Rx tablet Patient History Medical History COVID-19 virus infection Morbid obesity History of COVID-19 04/2021- mild symptoms Abnormal vaginal bleeding Fibroids s/p abdominal myomectomy. Uncomplicated post-operative course Scoliosis Mild Anemia Secondary to bleeding from fibroids Hx several blood transfusions (most recently 4U PRBC 11/2022) Depression Anxiety Seasonal allergies Ovarian cyst Hx Surgical History H/O hysterectomy for benign disease Fibroids, menorrhagia. Likely endometriosis visualized during surgery. Retains ovaries. S/P myomectomy [place] teeth extracted History of myringotomy History of adenoidectomy Family History Mother History of anesthesia reaction Single episode of post-op dyspnea (felt r/t asthma), "resolved" during recovery Diabetes Denies family history of Ovarian cancer Prostate cancer Myocardial infarction Breast cancer Colorectal cancer Social History Smoking Status: Never smoker Second Hand Exposure: No; Do You Dip or Chew Tobacco: No; Tobacco Cessation Education Requested by Patient: No Hx Alcohol Use: No Hx Substance Use: No Preferred Language: Swedish Communication Ability: Effective Visual Impairment: No Limitations Hearing Ability: Normal Design Painter Required: No Beliefs That Will Affect Care: None marital status: Single Current Living Situation: Significant Other current occupational status: employed 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 Other Information That Helps Us Care for You: No Feels Safe at Home: Yes Safety Concerns: Feels Safe At This Time Diet: regular caffeine: Yes during the past year weight has: increased > 10 lbs Dental Care, Regularly: Yes Physical Activity Frequency: 5-6 Times per Week Seatbelt Use: always Sunscreen Use: Yes Assistive Devices: None Review of Systems Constitutional: no fever and no chills Eyes: no blind spots and no diplopia Ear, Nose, Mouth, Throat: no hearing loss Respiratory: no cough and no dyspnea Cardiovascular: no chest pain and no palpitations Gastrointestinal: no nausea and no vomiting Genitourinary: no dysuria Musculoskeletal: no myalgia and no muscle weakness Integumentary: as per Subjective / HPI (Inguinal freckle) Neurologic: as per Subjective / HPI; no gait abnormality, no unsteadiness, no localized weakness, no loss of sensation, no paresthesia, no lack of coordination, no tremor(s), no abnormal movements and no dizziness Psychiatric: no depression and no anxiety Hematologic / Lymphatic: no easy bleeding and no easy bruising Exam (Neuro) Constitutional: well developed and well nourished; no acute distress Eyes: normal visual dobbs by confrontation, PERRL, normal accommodation and EOM intact bilaterally; no nystagmus Neurologic: Oriented to:: Person, Place and Time Memory: Short Term Intact and Remote Intact Attention: Span Intact and Concentration Intact Language: Naming Objects and Repeating Phrases Speech Fluency: negative Dysarthria Speech Aphasia: negative Aphasia Fund of Knowledge: Current Events, Past History and Vocabulary Cranial Nerves: Normal II (Visual dobbs full to confrontation, visual acuity normal), III, IV, (Pupils equal round reactive to light and accommodation, eye movements normal), V (Facial sensation intact), VII (There is no facial droop or weakness), VIII (Hearing intact), IX, X (Palate elevates to midline), XI (Shoulder shrug intact) and XII (Tongue protrudes to midline) Motor Strength: Normal Lower Extremities and Normal Upper Extremities; negative Pronator Drift Motor Tone: Normal Lower Extremities and Normal Upper Extremities Muscle Bulk/Involuntary Movements: No Involuntary Movements; negative Muscle Atrophy Sensation: Light Touch Intact, Pain/Temperature Intact, Vibration Intact and Proprioception Intact Coordination: Normal; negative Limited Balance, Dysdiadochokinesia, Finger-Nose Abnormal or Heel-Braswell Abnormal Deep Tendon Reflexes: Rt Triceps: 2+, Lt Triceps: 2+, Rt Biceps: 2+, Lt Biceps: 2+, Rt Brachioradialis: 2+, Lt Brachioradialis: 2+, Rt Patellar: 2+, Lt Patellar: 2+, Rt Ankle: 2+ and Lt Ankle: 2+ Special Tests: negative Babinski Present Gait: Normal Station and Gait Results & Data Vital Signs (Past 12 Hours) Vital Signs Temp Pulse Resp BP Pulse Ox O2 Del Method 07/01/24 07:54 36.6 C 70 16 140/82 97 Room Air 06/30/24 21:48 Room Air Coding Level of Care Code 00049 INT INP/OBS CARE 3/75MIN Diagnoses Unresponsive episode R40.4 Migraine with aura G43.109 Time Spent (min) 90 Comment Total time includes patient contact, chart review, counseling, note preparation
--- NOTE | 2024-07-01 13:41 | Electroencephalogram ---
EEG Procedure Note Date of Service July 01, 2024 Start / End Times Start Time: 10:43 AM End Time: 11:03 AM Referring Physician Nuris History Recurrent unresponsive episodes without loss of consciousness Home Medication List Medication Instructions Recorded Confirmed Type levothyroxine 25 mcg tablet 25 mcg PO DAILY #90 tabs 02/14/23 06/30/24 Rx (Synthroid) dicyclomine 20 mg tablet 20 mg PO QID PRN abdominal pain 12/05/23 06/30/24 Rx #20 tabs cholecalciferol (vitamin D3) 1,250 50,000 unit PO WEEKLY 8 weeks #8 01/26/24 06/30/24 Rx mcg (50,000 unit) capsule caps albuterol sulfate 90 mcg/actuation 2 puff inhalation Q6H PRN 02/03/24 06/30/24 Rx aerosol inhaler shortness of breath or wheezing #18 grams betamethasone valerate 0.1 % 1 applic topical BID PRN skin 02/16/24 06/30/24 Rx topical cream irritation #45 grams escitalopram oxalate 10 mg tablet 10 mg PO DAILY #90 tabs 02/16/24 06/30/24 Rx hydroxyzine HCl 10 mg tablet 10 mg PO TID PRN anxiety #30 tabs 02/16/24 06/30/24 Rx magnesium glycinate 400 mg (4 x 100 mg magnesium) PO 04/07/24 06/30/24 Rx DAILY #30 caps riboflavin (vitamin B2) 400 mg 400 mg PO DAILY #30 tabs 04/07/24 05/28/24 Rx tablet rizatriptan 10 mg disintegrating See Rx Instructions PO .COMPLEX 30 04/07/24 Rx tablet days #9 tabs topiramate 25 mg tablet (Topamax) 25 mg PO DAILY 90 days #90 tabs 04/07/24 05/28/24 Rx rimegepant 75 mg disintegrating See Rx Instructions .Route 05/13/24 05/28/24 Rx tablet (Nurtec ODT) .COMPLEX #8 tabs penicillin V potassium 500 mg 500 mg PO BID 10 days #20 tabs 05/28/24 05/28/24 Rx tablet Inpatient Medication List Acetaminophen (Acetaminophen 325 Mg Tab) 650 mg PO Q4H PRN PRN Reason: Pain or Fever Stop: 07/30/24 22:07 Last Admin: 07/01/24 13:09 Dose: 650 mg Documented By: Admin: 07/01/24 09:29 Dose: 650 mg Documented By: Admin: 06/30/24 22:25 Dose: 650 mg Documented By: TU Escitalopram Oxalate (Escitalopram Oxalate 10 Mg Tab) 10 mg PO DAILY SUKHDEV Stop: 07/31/24 08:59 Last Admin: 07/01/24 08:18 Dose: 10 mg Documented By: YAZAN Hydroxyzine HCl (Hydroxyzine Hcl 10 Mg Tab) 10 mg PO TID PRN PRN Reason: anxiety Stop: 07/31/24 00:08 Last Admin: 07/01/24 13:10 Dose: 10 mg Documented By: Admin: 07/01/24 09:30 Dose: 10 mg Documented By: YAZAN Levothyroxine Sodium (Levothyroxine Sodium 25 Mcg Tablet) 25 mcg PO DAILYBB [facility] Stop: 07/31/24 06:29 Last Admin: 07/01/24 05:40 Dose: 25 mcg Documented By: TU Topiramate (Topiramate 25 Mg Tab) 25 mg PO DAILY SUKHDEV Stop: 07/31/24 08:59 Last Admin: 07/01/24 08:18 Dose: 25 mg Documented By: YAZAN Discontinued Medications Ioversol (Optiray 320 125ml) 118 ml IV ONCE ONE Stop: 06/30/24 18:29 Last Admin: 06/30/24 18:29 Dose: 118 ml Documented By: YUAN Lorazepam (Lorazepam 2 Mg/1 Ml Vial) 1 mg IV ONE PRN PRN Reason: ANXIETY / PRIOR TO MRI Stop: 07/01/24 20:45 Last Admin: 06/30/24 21:03 Dose: 1 mg Documented By: PAWAN Description This is a 21 electrode EEG with a single channel dedicated to limited EKG. The electrodes were placed in accordance with the International 10-20 system. There is a well-developed posterior dominant rhythm of 10 Hz which is symmetrically distributed and attenuates with eye opening. There is a normal anterior to posterior organization. Photic stimulation is unremarkable. Hyperventilation is not performed. There is a symmetric frontal beta rhythm. There is no focal slowing. There are no epileptiform abnormalities. Interpretation Normal-appearing awake/drowsy EEG. [facility] Procedure Codes Indication for Procedure (1) Unresponsive episode: Neurology Neurology: 77856 EEG include record awake & drowsy
--- NOTE | 2024-07-01 14:28 | Discharge Summary ---
<Statement entered by Patti Lawler MD - 07/01/24 17:45> Unclear etiology of staring spells. Could be absence seizure or PNES. She will follow up with neurologist and topamax was increased. Unclear etiology of amnestic episode. Does not report using any sleep aids (ie ambien), OTC cold medicines, street drugs and Utox negative. Could be related to above or potentially a parasomnia. Prevent access to driving at night for safety. Discharge Summary Date of Service July 01, 2024 Principal Dx & Hospital Course #1 = Principal Diagnosis (1) Unresponsive episode: 29yo female with history of anxiety/depression and migraine with aura presenting after multiple unresponsive episodes which developed 3-4 days ago. Patient also with an amnestic event where she drove to a nearby gas station with no recollection. Brain imaging is unremarkable. EEG is WNL Neurology consultation - Etiology unclear - increase topomax to 50mg BID - Outpatient follow up for 3 day EEG Interestingly, significant other reports spells only happen when she is relaxed, not when she is actively doing something. Discussion with patient and partner at bedside, unfortunately no cause for these episodes, but no further workup to be done while inpatient and spells are not inherently harmful currently. Discussed healthy eating, avoiding ETOH and smoking, good sleep hygiene. No driving (& hide keys) and off work until follow up with neurology. Discussed ER return precautions. (2) Migraine with aura: Patient presently without headache. She follows with Dr. Angel for Headache Medicine -Continue Magnesium PO - Topamax increased as above (3) Iron deficiency anemia: iron studies - consistent with ESSENCE - pt reports that she has had IV iron and blood transfusions in the past - initially thought this was because of her heavy menses and cyst, but had a hysterectomy one year ago Recommend continued outpatient follow up/workup on cause, ?colonoscopy Plan Chronic Medical Issues: Depression/Anxiety -Continue Lexapro -Continue Hydroxyzine PRN Notes For Next Care Provider no cause for spells - questions psychogenic? Needs outpatient neurology follow up recommend futher workup for cause of ESSENCE Medication Changes From Visit Topamax increased Admission HPI Per Admitting Provider Karmen Wolff is a 29yo female with history of depression/anxiety and hypothyroidism presenting with episodes of unresponsiveness. On 06/28/24 patient was in her usual state of health. She reports eating well, sleeping well. She attended a CPR course for work and was feeling fine. Friday night she got up to use the bathroom then reports being shaken awake by her in her car at a gas station 1 mile away. She does not recall getting in to the car or driving to the gas station. She has no history of sleepwalking or parasomnia. Her reports that when he found her in the car she was staring straight ahead and rocking back and forth. Patient reports that she could hear her calling out to her but it sounded like she was "in a tunnel". She woke up after several minutes and was slightly confused for approx imately 10 minutes - unable to recall where she was or how to get home. No tongue biting or incontinence. She takes topamax and hydroxyzine which cause her to become drowsy but she did not take them or any other medication or substance prior to this event. Since 06/28 she has been having frequent staring episodes. Her reports that these happen multiple times daily and last anywhere from 1-15 minutes. She stares straight ahead and is unresponsive. reports some rapid blinking and some grinding motion of her jaw (teeth not grinding though). has tried to wake her from these episodes by shaking her or tickling her feet with no success. Patient denies a prodrome. She reports she is able to hear her surroundings but they sound muffled. After the episodes she has a frontal headache, abdominal pain on occasion and her skin hurts. Patient with no personal history of seizure. She did have several concussions as a child. Her family history is POSITIVE for Neurofibromatosis Type I in her father, sister and two nieces. Patient was diagnosed with strep throat last week for which she completed a course of antibiotics. Her symptoms have resolved. In the ER patient had a staring episode. Code Blue was called. No CPR or medications given. Episode resolved. Discharge Exam General: NAD, VS as above, pleasant Resp: normal respiratory effort, lungs clear to auscultation CV: RRR, no murmur, Abd: normal bowel sounds, non tender, no hepatosplenomegaly Extremities: Moves all extremities, no edema Neuro: A&O x3, no focal deficits Skin: intact, no lesions noted Discharge Plan Discharge Items Patient Disposition: Home - Self-Care Reason For Visit: STARING SPELLS, AMNESIA Discharge Diagnosis: Staring Spells Activity: Resume your previous activity Driving/Machine Use: No driving until follow up with Neurology Weightbearing: Full weightbearing Non-emergency contact: Primary Care Provider and Neurologist Call non-emergency contact if: you have any medication questions and your symptoms worsen Follow-up/Referrals: James Montesinos CRNP [Primary Care Provider] - Jl Jean Baptiste MD [Physician] - (Follow up [facility] - for 3 day EEG and further workup ) Diet: Regular Addtl Attending Provider Instructions: Ms. Wolff, You were hospitalized after having multiple staring spells. You were seen by Neurology and unfortunately we do not know the cause of these spells at this time. Thankfully, they are not harmful to you and you do no need to remain the hospital at this time. All of your head imaging came back normal. If you start to develop other symptoms (worsening mental status, stroke like symptoms, or spells that do not end) please return to the ER. If the spells become more frequent or concerning please contact your PCP or neurology. Recommend no driving and remain off work until follow up with neurology. Also recommend hiding the keys so you are unable to get up in the middle of the night and drive without knowing. As we are unsure what is causing these spells. Recommend you are eating a well balanced diet, limiting stress and getting 8 hours of sleep a night. Avoid alcohol and smoking. Avoid sedating medications. We have increased your Topamax, per neurology recommendations. 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 Regarding your iron deficiency anemia - would recommend further workup for the cause of this as you had a hysterectomy a year ago. I suspect you may need a colonscopy. No other changes to your home medications. CONTACT YOUR PRIMARY CARE PROVIDER if you experience any of the following: Shortness of breath or difficulty breathing Fevers or chills Feeling tired with normal activity or experiencing dizziness or fainting Difficulty following your treatment plan, or difficulty taking medications CALL 911 OR GO TO THE EMERGENCY DEPARTMENT if you experience any of the following: Severe abdominal pain or nausea/vomiting Severe chest pain, or chest pain that radiates (moves) to your jaw or arm Sudden, severe shortness of breath or difficulty breathing Thank you for allowing us to participate in your care. Pending Studies at Discharge: No Stand-Alone Forms: My [facility], Work/School Release, Smoking Cessation Medications and DC Order Prescriptions: New topiramate [Topamax] 50 mg tablet 50 mg PO BID 30 Days Qty: 60 0RF Continued cholecalciferol (vitamin D3) 1,250 mcg (50,000 unit) capsule 50,000 unit PO WEEKLY 56 Days Qty: 8 0RF Nurtec ODT 75 mg tablet,disintegrating See Rx Instructions .ROUTE .COMPLEX Qty: 8 5RF Dose Instruction: TAKE ONE TABLET BY MOUTH AT ONSET of migraine Rx Instructions: TAKE ONE TABLET BY MOUTH AT ONSET of migraine levothyroxine [Synthroid] 25 mcg tablet 25 mcg PO DAILY Qty: 90 3RF hydroxyzine HCl 10 mg tablet 10 mg PO TID PRN (Reason: anxiety) Qty: 30 2RF escitalopram oxalate 10 mg tablet 10 mg PO DAILY Qty: 90 2RF betamethasone valerate 0.1 % cream 1 applic topical BID PRN (Reason: skin irritation) Qty: 45 4RF Rx Instructions: Only uses during the winter season rizatriptan 10 mg tablet,disintegrating See Rx Instructions PO .COMPLEX 30 Days Qty: 9 2RF Rx Instructions: take 1 tab at onset of headache; if no relief may repeat 1 tab after at least 2 hrs; max = 3 tabs/24 hr PO magnesium glycinate 100 mg magnesium capsule 400 mg PO DAILY Qty: 30 0RF riboflavin (vitamin B2) 400 mg tablet 400 mg PO DAILY Qty: 30 0RF albuterol sulfate 90 mcg/actuation HFA aerosol inhaler 2 puff inhalation Q6H PRN (Reason: shortness of breath or wheezing) Qty: 18 3RF dicyclomine 20 mg tablet 20 mg PO QID PRN (Reason: abdominal pain) Qty: 20 0RF Discontinued topiramate [Topamax] 25 mg tablet 25 mg PO DAILY 90 Days Qty: 90 3RF Rx Instructions: Take 25mg nightly for the first 7 nights, then increase to 50mg thereafter penicillin V potassium 500 mg tablet 500 mg PO BID 10 Days Qty: 20 0RF Discharge Orders: Discharge Order (Routine); Ordered 07/01/24 Ordered By: Jeana Jones Admission Data Admit Date/Time: 06/30/24 20:31 Attending Provider: Patti Lawler Admit Provider: Usha Aleman Primary Care Provider: James Montesinos Other Providers: Usha lAeman; Jl Jean Baptiste Hospital Stay Data Consultations 06/30/24 19:48 ED Decision to Admit Stat 07/01/24 08:26 Consult Neurology Routine Diagnostic Imagining Performed Head CTA 06/30/24 18:09 CT angio head wo/w, CT angio neck with con CLINICAL HISTORY: 29 years-old Female with dizzy. Acute dizziness COMPARISON STUDY: Head CT 01/18/2024 TECHNIQUE: Unenhanced axial CT scan of the brain is performed. Subsequently, following the IV administration of 118 cc of Optiray, CT angiogram of the head and neck was performed. Images are reviewed in the axial, sagittal, and coronal planes. 3-D MIPS images are created and assessed. IV contrast was administered without complication. All measurements were obtained according to NASCET criteria. A dose lowering technique was utilized adhering to the principles of ALARA. CT DOSE: 1043.3 mGy.cm FINDINGS: CT BRAIN: There is no acute intracranial hemorrhage, midline shift, hydrocephalus, intracranial mass, territorial ischemia or abnormal extra-axial collections. No abnormal intra-axial or extra-axial enhancement. Vadim cisterna magna redemonstrated. Mastoid air cells and middle ear cavities are clear. No calvarial fracture. Paranasal sinuses are clear. CT ANGIOGRAM OF THE HEAD AND NECK: Three-vessel morphology of the thoracic aortic arch. Patency of the innominate and images including arteries. The common and internal carotid arteries are widely patent. The bilateral anterior and middle cerebral arteries are also patent. The vertebrobasilar system and posterior cerebral arteries are widely patent. There is no aneurysm, high-grade stenosis, or proximal branch occlusion identified. Dural sinuses appear patent. Lung apices are clear. No pneumothorax. Unremarkable soft tissues. Subcentimeter lymph nodes are likely benign. No acute fracture. There is reversal of the normal cervical lordosis. IMPRESSION: 1. No acute intracranial abnormality. 2. Unremarkable CTA of the head and neck. ACT 112: Negative or not required by law. The above report was generated using voice recognition software. It may contain grammatical, syntax or spelling errors. Electronically signed by: Rom Kevin M.D. 06/30/2024 7:01 PM Neck CTA 06/30/24 18:09 CT angio head wo/w, CT angio neck with con CLINICAL HISTORY: 29 years-old Female with dizzy. Acute dizziness COMPARISON STUDY: Head CT 01/18/2024 TECHNIQUE: Unenhanced axial CT scan of the brain is performed. Subsequently, following the IV administration of 118 cc of Optiray, CT angiogram of the head and neck was performed. Images are reviewed in the axial, sagittal, and coronal planes. 3-D MIPS images are created and assessed. IV contrast was administered without complication. All measurements were obtained according to NASCET criteria. A dose lowering technique was utilized adhering to the principles of ALARA. CT DOSE: 1043.3 mGy.cm FINDINGS: CT BRAIN: There is no acute intracranial hemorrhage, midline shift, hydrocephalus, intracranial mass, territorial ischemia or abnormal extra-axial collections. No abnormal intra-axial or extra-axial enhancement. Vadim cisterna magna redemonstrated. Mastoid air cells and middle ear cavities are clear. No calvarial fracture. Paranasal sinuses are clear. CT ANGIOGRAM OF THE HEAD AND NECK: Three-vessel morphology of the thoracic aortic arch. Patency of the innominate and images including arteries. The common and internal carotid arteries are widely patent. The bilateral anterior and middle cerebral arteries are also patent. The vertebrobasilar system and posterior cerebral arteries are widely patent. There is no aneurysm, high-grade stenosis, or proximal branch occlusion identified. Dural sinuses appear patent. Lung apices are clear. No pneumothorax. Unremarkable soft tissues. Subcentimeter lymph nodes are likely benign. No acute fracture. There is reversal of the normal cervical lordosis. IMPRESSION: 1. No acute intracranial abnormality. 2. Unremarkable CTA of the head and neck. ACT 112: Negative or not required by law. The above report was generated using voice recognition software. It may contain grammatical, syntax or spelling errors. Electronically signed by: Rom Kevin M.D. 06/30/2024 7:01 PM Chest X-Ray 06/30/24 18:43 XR chest 1V portable CLINICAL HISTORY: Syncope. COMPARISON STUDY: Chest radiograph October 05, 2022. FINDINGS: Lung volumes are normal. Lungs are clear. There is no pneumothorax or pleural effusion. Cardiac size is normal. Mediastinal contours are normal. There is no evidence for pulmonary edema. IMPRESSION: No acute cardiopulmonary findings. ACT 112: Negative or not required by law. Electronically signed by: Jacoby Quan M.D. 07/01/2024 7:06 AM Brain MRI 06/30/24 20:31 Exam(s): MRI OTHER Without Contrast EXAM: MR Head Without Intravenous Contrast CLINICAL HISTORY: Reason for exam: staring episodes. TECHNIQUE: Magnetic resonance images of the head/brain without intravenous contrast in multiple planes. COMPARISON: March 05, 2021 FINDINGS: Brain: Unremarkable. No mass. No hemorrhage. No acute infarct. Ventricles: Unremarkable. No ventriculomegaly. Bones/joints: Unremarkable. No acute fracture. Sinuses: Unremarkable as visualized. No acute sinusitis. Mastoid air cells: Unremarkable as visualized. No mastoid effusion. Orbits: Unremarkable as visualized. IMPRESSION: Normal head/brain MRI. Electronically signed by: Dc Escalante MD 06/30/24 23:32 PM Pending Results Patient Have Any Pending Studies at Discharge: No Discharge Instructions Given to Patient (Per Discharging Provider) Ms. Wolff, Yury were hospitalized after having multiple staring spells. You were seen by Neurology and unfortunately we do not know the cause of these spells at this time. Thankfully, they are not harmful to you and you do no need to remain the hospital at this time. All of your head imaging came back normal. If you start to develop other symptoms (worsening mental status, stroke like symptoms, or spells that do not end) please return to the ER. If the spells become more frequent or concerning please contact your PCP or neurology. Recommend no driving and remain off work until follow up with neurology. Also recommend hiding the keys so you are unable to get up in the middle of the night and drive without knowing. As we are unsure what is causing these spells. Recommend you are eating a well balanced diet, limiting stress and getting 8 hours of sleep a night. Avoid alcohol and smoking. Avoid sedating medications. We have increased your Topamax, per neurology recommendations. 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 Regarding your iron deficiency anemia - would recommend further workup for the cause of this as you had a hysterectomy a year ago. I suspect you may need a colonscopy. No other changes to your home medications. CONTACT YOUR PRIMARY CARE PROVIDER if you experience any of the following: Shortness of breath or difficulty breathing Fevers or chills Feeling tired with normal activity or experiencing dizziness or fainting Difficulty following your treatment plan, or difficulty taking medications CALL 911 OR GO TO THE EMERGENCY DEPARTMENT if you experience any of the following: Severe abdominal pain or nausea/vomiting Severe chest pain, or chest pain that radiates (moves) to your jaw or arm Sudden, severe shortness of breath or difficulty breathing Thank you for allowing us to participate in your care. Total Time Total Time Spent Total Time Spent (In Minutes): Time spent day of discharge 40 minutes including direct patient care, medication reconciliation, documentation, review of labs and images, and coordination of care. Coding Level of Care Code 58892 INP/OBS DISCH >30 MIN Diagnoses Unresponsive episode R40.4 Migraine with aura G43.109 Iron deficiency anemia D50.9 Iron deficiency anemia type: unspecified iron deficiency
--- NOTE | 2024-07-01 16:17 | Electrocardiogram Report ---
Test Reason : Blood Pressure : */* mmHG Vent. Rate : 74 BPM Atrial Rate : 74 BPM P-R Int : 134 ms QRS Dur : 78 ms QT Int : 380 ms P-R-T Axes : -16 30 5 degrees QTcB Int : 421 ms Normal sinus rhythm Normal ECG When compared with ECG of 14-Feb-2023 14:27, No significant change was found Confirmed by Abad Heck ([id number]) on 07/01/2024 4:16:47 PM Referred By: REFERRED SELF Confirmed By: Abad Heck
== END 2024-07-01 15:47 | disposition home or self-care (01) ==
LOC: ED 16:59 → 3E 16:59 → SUATTDRO 20:31 → 3E 21:48